=== PATIENT | male | born 1955 | race American Indian/Alaskan Native ===

== ENCOUNTER 2019-12-23 18:40 | Inpatient (IN) | payer MEDICARE ==
[2019-12-23] MEDS ORDERED: SODIUM CHLORIDE 0.9% 1000 ML 1,000 ML ONE (20:14)
[2019-12-23] MEDS ORDERED: SODIUM CHLORIDE 0.9% 1000 ML IV SOLN IV ONE (20:15)
[2019-12-23] MEDS ORDERED: CEFEPIME/NS 2 GM/100 ML 2 GM/100 ML BAG IV ONE (20:16)
--- NOTE | 2019-12-23 20:32 | Emergency Department Report ---
ED Recheck HPI - General Chief Complaint: Recheck/Abnormal Lab/Rx Stated Complaint: ELEVATED LABS Time Seen by Provider: 12/23/19 20:09 Source: patient Mode of arrival: Stretcher Limitations: No Limitations - History of Present Illness Initial Comments: Patient is a 64-year-old male that presents emergency room with abnormal labs. Patient was sent from his [place] [facility] for further evaluation of his abnormal labs. Patient was found to have an elevated creatinine. Patient does not have a history of kidney disease. Patient brought in by EMS. EMS states that the patient is hypotensive. Patient at this time is alert and oriented x1. Patient is oriented to self only. Patient is confused to situation, date, place. We are unsure of the patient's baseline. Patient's diagnosis list reviewed from the [place] [facility] facility. Patient has a past history of GERD, agitation, hyperlipidemia, alcohol related disorder, heart failure, iron deficiency anemia, hypertension, depressive disorder, anxiety disorder, chronic pain. -: Sudden Returns Today for: CBOAL Symptoms Since Prior Visit: no new symptoms Associated Symptoms: none - Related Data Allergies Allergy/AdvReac Type Severity Reaction Status Date / Time Unable to Assess Allergy Verified 12/23/19 22:21 ED Review of Systems ROS: Stated complaint: ELEVATED LABS Other details as noted in HPI Comment: Unobtainable due to pts medical conditions ED Past Medical Hx - Past Medical History Previous Medical History?: Yes Hx Hypertension: Yes Hx Congestive Heart Failure: Yes Hx Liver Disease: No Hx Renal Disease: No Hx Psychiatric Treatment: Yes - Surgical History Past Surgical History?: No - Family History Family history: no significant - Social History Smoking Status: Unknown if ever smoked Substance Use Type: None ED Physical Exam - General Limitations: No Limitations General appearance: alert, in no apparent distress - Head Head exam: Present: atraumatic, normocephalic - Eye Eye exam: Present: normal appearance, PERRL Pupils: Present: normal accommodation - ENT ENT exam: Present: mucous membranes dry - Neck Neck exam: Present: normal inspection. Absent: tenderness, meningismus - Respiratory Respiratory exam: Present: normal lung sounds bilaterally. Absent: respiratory distress, wheezes, rales - Cardiovascular Cardiovascular Exam: Present: regular rate, normal rhythm. Absent: systolic murmur, diastolic murmur, rubs, gallop - GI/Abdominal GI/Abdominal exam: Present: soft, normal bowel sounds. Absent: distended, tenderness - Rectal Rectal exam: Present: deferred - Extremities Exam Extremities exam: Present: normal inspection - Back Exam Back exam: Present: normal inspection - Neurological Exam Neurological exam: Present: alert, altered - Skin Skin exam: Present: warm, dry, intact, normal color. Absent: rash ED Course Vital Signs 12/23/19 12/23/19 12/23/19 18:47 19:08 19:15 Temperature 98.4 F Pulse Rate 95 H 90 91 H Respiratory 18 20 19 Rate Blood Pressure Blood Pressure 74/42 [Right] O2 Sat by Pulse 99 77 L 80 L Oximetry 12/23/19 12/23/19 12/23/19 19:31 19:45 20:01 Temperature Pulse Rate 91 H 91 H 91 H Respiratory 16 21 20 Rate Blood Pressure Blood Pressure [Right] O2 Sat by Pulse 99 100 100 Oximetry 12/23/19 12/23/19 12/23/19 20:15 20:30 20:45 Temperature Pulse Rate 93 H 100 H 101 H Respiratory 16 17 15 Rate Blood Pressure 81/48 71/49 79/47 Blood Pressure [Right] O2 Sat by Pulse 94 95 Oximetry 12/23/19 12/23/19 12/23/19 21:00 21:15 21:30 Temperature Pulse Rate 100 H 105 H 101 H Respiratory 23 26 H 15 Rate Blood Pressure 73/42 70/37 65/33 Blood Pressure [Right] O2 Sat by Pulse 90 Oximetry 12/23/19 12/23/19 12/23/19 21:45 22:00 22:15 Temperature Pulse Rate 104 H 105 H 124 H Respiratory 15 14 22 Rate Blood Pressure 68/38 79/51 100/62 Blood Pressure [Right] O2 Sat by Pulse Oximetry 12/23/19 12/23/19 12/23/19 22:30 22:45 23:00 Temperature Pulse Rate 133 H 116 H 118 H Respiratory 31 H 24 14 Rate Blood Pressure 112/67 102/51 84/48 Blood Pressure [Right] O2 Sat by Pulse 100 Oximetry 12/23/19 12/23/19 12/23/19 23:15 23:43 23:45 Temperature Pulse Rate 117 H 121 H 121 H Respiratory 16 14 17 Rate Blood Pressure 89/54 94/55 99/60 Blood Pressure [Right] O2 Sat by Pulse 100 Oximetry 12/24/19 00:00 Temperature Pulse Rate 124 H Respiratory 12 Rate Blood Pressure 102/67 Blood Pressure [Right] O2 Sat by Pulse 100 Oximetry - Reevaluation(s) Reevaluation #1: Initial evaluation done. Patient found to be hypotensive. Patient's current blood pressure of 85/60. Patient will be given a liter of fluids. Patient will be given antibiotics empirically. Patient will have labs done and a head CT. 12/23/19 20:32 Reevaluation #2: Patient has completed the 2 L of fluid and the patient's blood pressure still low. Patient will be started on Levophed and a central line will be placed. 12/23/19 21:29 Reevaluation #3: Blood pressure is improving on peripheral Levophed. Patient will have a central line placed. 12/23/19 22:10 Reevaluation #4: Central line placed without difficulty. See procedure note. Map is above 65. Patient given Geodon for agitation during procedure. 12/23/19 22:51 - Consultations Consultation #1: Hospitalist consulted for admission. Hospitalist to admit patient. 12/23/19 22:52 - Central Line Placement Left Femoral Consent Obtained: emergent situation Time Out Performed: Yes Patient Placed on Monitor/Pulse Ox: Yes MD Prep: mask, gown, gloves Central Line Prep: Chlorhexidine scrub, sterile drapes applied Local Anesthesia Used: Lidocaine 1% Amount of Anesthesia Used (mls): 5 Ultrasound Used for Placement: Yes Central Line Lumen Inserted: triple Bloods Obtained for Lab: No Central Line Position: good blood return, all ports aspirated, flus, sutured in place with 2-0 Dressing Applied: Tegaderm Patient Tolerated Procedure: well, no complications Complications: none Additional Comments: Central Venous Line Placement: Indication: Hemodynamic monitoring/Intravenous access A time-out was completed verifying correct patient, procedure, site, positioning, and special equipment to include ultrasound. The patient was placed in a dependent position appropriate for central line placement based on the vein to be cannulated. The patients /left groin was prepped and draped in sterile fashion. 1% Lidocaine was used to anesthetize the surrounding skin area. An ultrasound was used in a sterile fashion to identify vasculature. A triple lumen catheter was introduced into the the common femoral vein using the Seldinger technique and under ultrasound guidance. The catheter was threaded smoothly over the guide wire and appropriate blood return was obtained. Each lumen of the catheter was evacuated of air and flushed with sterile saline. The catheter was then sutured in place to the skin and a sterile dressing applied. Perfusion to the extremity distal to the point of catheter insertion was checked and found to be adequate. Estimated Blood Loss: minimal The patient tolerated the procedure well and there were no complications. ED Recheck MDM - Differential Diagnosis Sepsis, renal failure, UTI, hypotension - Medical Decision Making CHEST 1 VIEW INDICATION / CLINICAL INFORMATION: ams. COMPARISON: None available. FINDINGS: SUPPORT DEVICES: None. HEART / MEDIASTINUM: Prior sternotomy and mediastinal clips are noted. LUNGS / PLEURA: No significant pulmonary or pleural abnormality. No pneumothorax. ADDITIONAL FINDINGS: No significant additional findings. IMPRESSION: 1. No acute findings. 2. Prior CABG. CT HEAD WITHOUT CONTRAST INDICATION: Altered Mental Status TECHNIQUE: Axial slices were obtained through the head. Coronal and sagittal reformatted images were obtained. COMPARISON: None available. FINDINGS: There is no intracranial hemorrhage or extra-axial fluid collection. There is atrophy and microangiopathy. Ventricles are normal in size and position. Basal cisterns are maintained. There is no mass lesion or midline shift. No acute territorial infarct is identified. Bone windows demonstrate no acute osseous abnormality. Paranasal sinuses and mastoid air cells appear clear. TECHNIQUE: All CT scans at this facility use dose modulation, iterative reconstruction, automated exposure control, weight based dosing, when appropriate, to reduce radiation dose to as low as reasonably achievable. IMPRESSION: 1. No acute intracranial abnormality. There is atrophy and microangiopathy. Patient is a 64-year-old male that presents emergency room with abnormal labs. Patient was sent from a local [place] [facility] care facility. Patient on initial evaluation found to be hypotensive and altered mental status. The patient's baseline is unknown. Patient does have a history of dementia. Patient had a sepsis protocol initiated immediately after initial evaluation. Patient given the recommended amount of normal saline at 2 L and antibiotics immediately after initial evaluation.. Patient remained hypotensive and was placed on Levophed. Patient responded well to Levophed. Patient then had a central line placed. Patient's labs were done and were remarkable for anemia and acute renal failure and UTI. Patient had a chest x-ray was negative. Patient's head CT negative for acute findings. Patient's clinical findings are consistent with septic shock. Patient admitted to the ICU. Patient admitted to the hospital service for further evaluation and treatment. Critical Care Time: Yes Critical care time in (mins) excluding proc time.: 55 Critical care attestation.: If time is entered above; I have spent that time in minutes in the direct care of this critically ill patient, excluding procedure time. Critical Care Time: 55 minutes ED Disposition Clinical Impression: Abnormal laboratory test result, Elevated troponin I level, Lactic acid acidosis Hypotension Qualifiers: Hypotension type: unspecified hypotension type Qualified Code(s): I95.9 - Hypotension, unspecified Altered mental state Qualifiers: Altered mental status type: unspecified Qualified Code(s): R41.82 - Altered mental status, unspecified Renal failure Qualifiers: Renal failure chronicity: acute Acute renal failure type: unspecified Qualified Code(s): N17.9 - Acute kidney failure, unspecified Anemia Qualifiers: Anemia type: unspecified type Qualified Code(s): D64.9 - Anemia, unspecified UTI (urinary tract infection) Qualifiers: Urinary tract infection type: acute cystitis Hematuria presence: with hematuria Qualified Code(s): N30.01 - Acute cystitis with hematuria Sepsis Qualifiers: Sepsis type: sepsis due to unspecified organism Sepsis acute organ dysfunction status: with acute organ dysfunction Severe sepsis acute organ dysfunction type: acute renal failure Acute renal failure type: unspecified Severe sepsis shock status: with septic shock Qualified Code(s): A41.9 - Sepsis, unspecified organism Disposition: 09 OP ADMIT IP TO THIS HOSP Is pt being admited?: Yes Does the pt Need Aspirin: No Condition: Critical Time of Disposition: 22:52 EKG interpretations - Telemetry EKG Rhythm: Sinus Tachycardia - EKG Sinus rhythms and dysrhythmias: sinus tachycardia Additional Comments: EKG interpreted by me. EKG shows a sinus tachycardia with a wide QRS. No ST segment elevation. Glenn deviation.
[2019-12-23 20:35] LABS: Basophils % (Auto) 0.3 % (0.0-1.8); Hematocrit 22.8 % (35.5-45.6); Hemoglobin 7.7 gm/dl (11.8-15.2); Lymphocytes # (Auto) 0.9 K/mm3 (1.2-5.4); Lymphocytes % (Auto) 8.8 % (13.4-35.0); Mean Corpuscular HGB Conc 34 % (32-34); Mean Corpuscular Volume 91 fl (84-94); Monocytes # (Auto) 1.3 K/mm3 (0.0-0.8); Monocytes % (Auto) 12.2 % (0.0-7.3); Platelet Count 215 K/mm3 (140-440); Red Blood Count 2.52 M/mm3 (3.65-5.03); Red Cell Distribution Width 18.9 % (13.2-15.2)
[2019-12-23 20:50] LABS: Albumin 3.5 g/dL (3.9-5); Calcium 9.2 mg/dL (8.4-10.2)
[2019-12-23 21:35] LABS: Chol/HDL Ratio 3.63 %
[2019-12-23 21:46] LABS: Bacteria,Urine 1+ /HPF (Negative); Bilirubin,Urine NEG (Negative); Blood,Urine MOD (Negative); Color,Urine Yellow (Yellow); Mucus,Urine FEW /HPF; Urobilinogen,Urine < 2.0 mg/dL (<2.0)
--- NOTE | 2019-12-23 21:46 | XRay Report ---
CHEST 1 VIEW INDICATION / CLINICAL INFORMATION: ams. COMPARISON: None available. FINDINGS: SUPPORT DEVICES: None. HEART / MEDIASTINUM: Prior sternotomy and mediastinal clips are noted. LUNGS / PLEURA: No significant pulmonary or pleural abnormality. No pneumothorax. ADDITIONAL FINDINGS: No significant additional findings. IMPRESSION: 1. No acute findings. 2. Prior CABG. Signer Name: Donal Croft MD Signed: 12/23/2019 9:41 PM Workstation Name: [id number]
[2019-12-23] MEDS: NORepinephrine/NS 4 MG-250 ML 4 MG/250 ML BAG IV SCH (21:48)
[2019-12-23] MEDS ORDERED: ZIPRASIDONE MESYLATE 20 MG VIAL IM ONE ×2 (22:07→22:20)
[2019-12-23] MEDS ORDERED: WATER FOR INJ Sterile (PF) 10 ML ONE (22:08)
[2019-12-23] MEDS ORDERED: ONDANSETRON 4 MG/2 ML INJ IV PRN (23:37)
[2019-12-23] MEDS ORDERED: MAGNESIUM HYDROXIDE (MOM) ORAL LIQD UDC PO PRN (23:37)
[2019-12-23] MEDS ORDERED: ACETAMINOPHEN 325 MG TAB PO PRN (23:37)
--- NOTE | 2019-12-23 23:50 | History and Physical Report ---
History of Present Illness Date of examination: 12/23/19 Date of admission: 12/23/19 22:55 Chief complaint: Abnormal labs History of present illness: 64-year-old male resident of [facility] with known history of hypertension and CHF was brought into the emergency room today for evaluation of abnormal labs. He was found to have elevated creatinine without any known history of kidney disease. Upon arrival in the emergency room he was found to be hypotensive and was given some IV fluid. Most of the history was gotten from the emergency room physician as patient is is unable to give any history. Baseline mental status is also unknown. Work-up in the emergency room today reveals hemoglobin of 7.7, lactic acidosis, elevated troponin and elevated creatinine of 2.9. Urinalysis was significant for a urinary tract infection and CT scan of the head was unremarkable. Patient has been admitted for sepsis, anemia UTI. Patient has been started on Levophed, IV fluid and cefepime. Past History Past Medical History: heart failure, hypertension Past Surgical History: denies: No surgical history Social history: other (Resides in a Half-Way) Medications and Allergies Allergies Allergy/AdvReac Type Severity Reaction Status Date / Time No Known Allergies Allergy Verified 12/24/19 03:34 Active Meds: Active Medications Acetaminophen (Tylenol) 650 mg PO Q4H PRN PRN Reason: Pain MILD(1-3)/Fever >100.5/LUNSFORD Norepinephrine (Levophed Drip 4 Mg/Ns 250 Ml) 4 mg in 250 mls @ 7.5 mls/hr IV TITR DARLINE; Protocol Last Titration: 12/23/19 22:03 Dose: 8 mcg/min, 30 mls/hr Documented by: Cefepime HCl (Cefepime/Ns 2 Gm/100 Ml) 2 gm in 100 mls @ 200 mls/hr IV Q12HR DARLINE; Protocol Sodium Chloride (Nacl 0.9% 1000 Ml) 1,000 mls @ 125 mls/hr IV DIRECT DARLINE Magnesium Hydroxide (Milk Of Magnesia) 30 ml PO Q4H PRN PRN Reason: Constipation Ondansetron HCl (Zofran) 4 mg IV Q8H PRN PRN Reason: Nausea And Vomiting Sodium Chloride (Sodium Chloride Flush Syringe 10 Ml) 10 ml IV BID DARLINE Sodium Chloride (Sodium Chloride Flush Syringe 10 Ml) 10 ml IV PRN PRN PRN Reason: LINE FLUSH Review of Systems ROS unobtainable: due to mental status Exam - Constitutional Vitals: Temp Pulse Resp BP Pulse Ox 98.4 F 117 H 16 89/54 100 12/23/19 18:47 12/23/19 23:15 12/23/19 23:15 12/23/19 23:15 12/23/19 23:15 General appearance: Present: no acute distress, cachectic, other (Dry oral mucosa) - EENT Eyes: Present: PERRL, EOM intact ENT: hearing intact, clear oral mucosa, dentition normal - Neck Neck: Present: supple, normal ROM - Respiratory Respiratory effort: normal Respiratory: bilateral: CTA - Cardiovascular Rhythm: regular Heart Sounds: Present: S1 & S2. Absent: gallop, systolic murmur, diastolic murmur, rub - Extremities Extremities: no ischemia, pulses intact, pulses symmetrical, No edema, Full ROM Peripheral Pulses: within normal limits - Abdominal General gastrointestinal: Present: soft, non-tender, non-distended, normal bowel sounds. Absent: mass - Integumentary Integumentary: Present: clear, warm, dry - Musculoskeletal Musculoskeletal: strength equal bilaterally - Psychiatric Psychiatric: cooperative - Neurologic Neurologic: CNII-XII intact, no focal deficits, moves all extremities HEART Score - HEART Score Troponin: Troponin T 0.283 ng/mL (0.00-0.029) H* 12/23/19 20:18 Results - Labs CBC & Chem 7: 12/24/19 04:40 12/24/19 04:40 Labs: Abnormal lab results 12/23/19 12/23/19 12/23/19 Range/Units 20:18 20:18 20:18 RBC 2.52 L (3.65-5.03) M/mm3 Hgb 7.7 L (11.8-15.2) gm/dl Hct 22.8 L (35.5-45.6) % RDW 18.9 H (13.2-15.2) % Lymph % (Auto) 8.8 L (13.4-35.0) % [place] % (Auto) 12.2 H (0.0-7.3) % Lymph # (Auto) 0.9 L (1.2-5.4) K/mm3 [place] # (Auto) 1.3 H (0.0-0.8) K/mm3 Seg Neutrophils % 78.7 H (40.0-70.0) % Seg Neutrophils # 8.1 H (1.8-7.7) K/mm3 Sodium 129 L (137-145) mmol/L Chloride 86.1 L (98-107) mmol/L Carbon Dioxide 18 L (22-30) mmol/L BUN 120 H (9-20) mg/dL Creatinine 2.7 H (0.8-1.3) mg/dL Lactic Acid 2.80 H* (0.7-2.0) mmol/L Total Creatine Kinase 382 H (55-170) units/L Troponin T 0.283 H* (0.00-0.029) ng/mL Total Protein 6.2 L (6.3-8.2) g/dL Albumin 3.5 L (3.9-5) g/dL HDL Cholesterol 38 L (40-59) mg/dL Urine WBC (Auto) (0.0-6.0) /HPF 12/23/19 Range/Units 21:27 RBC (3.65-5.03) M/mm3 Hgb (11.8-15.2) gm/dl Hct (35.5-45.6) % RDW (13.2-15.2) % Lymph % (Auto) (13.4-35.0) % [place] % (Auto) (0.0-7.3) % Lymph # (Auto) (1.2-5.4) K/mm3 [place] # (Auto) (0.0-0.8) K/mm3 Seg Neutrophils % (40.0-70.0) % Seg Neutrophils # (1.8-7.7) K/mm3 Sodium (137-145) mmol/L Chloride (98-107) mmol/L Carbon Dioxide (22-30) mmol/L BUN (9-20) mg/dL Creatinine (0.8-1.3) mg/dL Lactic Acid (0.7-2.0) mmol/L Total Creatine Kinase (55-170) units/L Troponin T (0.00-0.029) ng/mL Total Protein (6.3-8.2) g/dL Albumin (3.9-5) g/dL HDL Cholesterol (40-59) mg/dL Urine WBC (Auto) 74.0 H (0.0-6.0) /HPF Assessment and Plan - Patient Problems (1) Sepsis Current Visit: Yes Status: Acute Qualifiers: Sepsis type: sepsis due to unspecified organism Sepsis acute organ dysfunction status: with acute organ dysfunction Severe sepsis acute organ dysfunction type: acute renal failure Acute renal failure type: unspecified Severe sepsis shock status: with septic shock Qualified Code(s): A41.9 - Sepsis, unspecified organism; R65.21 - Severe sepsis with septic shock; N17.9 - Acute kidney failure, unspecified Plan to address problem: Possibly secondary to UTI. We will continue on IV fluid and empiric IV antibiotics. (2) Altered mental state Current Visit: Yes Status: Acute Qualifiers: Altered mental status type: unspecified Qualified Code(s): R41.82 - Altered mental status, unspecified Plan to address problem: Possibly secondary to underlying sepsis. Will monitor mental status. Baseline mental status is unknown (3) Abnormal laboratory test result Current Visit: Yes Status: Acute Plan to address problem: Patient has been diagnosed renal failure. Will place consult to nephrology for evaluation. Meanwhile patient continued on IV fluid. (4) UTI (urinary tract infection) Current Visit: Yes Status: Acute Qualifiers: Urinary tract infection type: acute cystitis Hematuria presence: with hematuria Qualified Code(s): N30.01 - Acute cystitis with hematuria Plan to address problem: Patient placed on empiric IV antibiotics. We will await urine culture results. (5) Anemia Current Visit: Yes Status: Acute Qualifiers: Anemia type: unspecified type Qualified Code(s): D64.9 - Anemia, unspecified Plan to address problem: Possibly chronic. Will monitor CBC and will transfuse with packed red blood cells if needed. (6) Elevated troponin I level Current Visit: Yes Status: Acute Plan to address problem: Possibly secondary to the kidney disease and sepsis.. (7) Lactic acid acidosis Current Visit: Yes Status: Acute Plan to address problem: Secondary to the underlying sepsis. Will monitor chemistry. (8) Hypotension Current Visit: Yes Status: Acute Qualifiers: Hypotension type: unspecified hypotension type Qualified Code(s): I95.9 - Hypotension, unspecified Plan to address problem: Patient on IV fluid and also on pressor. Will monitor vital signs closely. (9) DVT prophylaxis Current Visit: Yes Status: Acute Plan to address problem: Patient placed on sequential compression device. (10) Full code status Current Visit: Yes Status: Acute
--- NOTE | 2019-12-23 23:56 | Cat Scan Report ---
CT HEAD WITHOUT CONTRAST INDICATION: Altered Mental Status TECHNIQUE: Axial slices were obtained through the head. Coronal and sagittal reformatted images were obtained. COMPARISON: None available. FINDINGS: There is no intracranial hemorrhage or extra-axial fluid collection. There is atrophy and microangiop athy. Ventricles are normal in size and position. Basal cisterns are maintained. There is no mass les ion or midline shift. No acute territorial infarct is identified. Bone windows demonstrate no acute osseous abnormality. Paranasal sinuses and mastoid air cells appear clear. TECHNIQUE: All CT scans at this facility use dose modulation, iterative reconstruction, automated ex posure control, weight based dosing, when appropriate, to reduce radiation dose to as low as reasonab ly achievable. IMPRESSION: 1. No acute intracranial abnormality. There is atrophy and microangiopathy. Signer Name: Yusuf Rob MD Signed: 12/23/2019 11:52 PM Workstation Name: [id number]
[2019-12-24] MEDS: SODIUM CHLORIDE 0.9% 1000 ML 1,000 ML IV SCH ×3 (03:33→19:09)
[2019-12-24] MEDS: NORepinephrine/NS 4 MG-250 ML 4 MG/250 ML BAG IV SCH ×3 (03:33→23:26)
[2019-12-24 05:30] LABS: Hemoglobin 6.7 gm/dl (11.8-15.2); Mean Corpuscular HGB Conc 34 % (32-34); Mean Corpuscular Volume 89 fl (84-94); Platelet Count 180 K/mm3 (140-440); Red Blood Count 2.25 M/mm3 (3.65-5.03); Red Cell Distribution Width 19.1 % (13.2-15.2)
[2019-12-24 05:37] LABS: INR 1.11 (0.87-1.13)
[2019-12-24 05:38] LABS: Calcium 8.6 mg/dL (8.4-10.2)
[2019-12-24 05:40] LABS: Hematocrit 19.9 % (35.5-45.6)
[2019-12-24] MEDS ORDERED: SODIUM CHLORIDE 0.9% 500 ML 500 ML IV ONE (05:43)
[2019-12-24 06:46] LABS: Band Neutrophils # (Manual) 0.1 K/mm3; Basophils % (Manual) 0 % (0.0-1.8); Eosinophils % (Manual) 0 % (0.0-4.3); Monocytes % (Manual) 0 % (0.0-7.3); Total Cells Counted 100
[2019-12-24 06:47] LABS: Anisocytosis 1+; Platelet Estimate Consistent w Auto
--- NOTE | 2019-12-24 08:27 | Progress Note ---
Assessment and Plan The high probability of a clinically significant, sudden or life threatening deterioration of the [] system(s) required my full and direct attention, intervention and personal management. The aggregate critical care time was [] minutes. This time is in addition to time spent performing reported procedures but includes the followin min [x] Data Review and interpretation [x] Patient assessment and monitoring of vital signs [x] Documentation [x] Medication orders and management - Patient Problems (1) Sepsis with encephalopathy and septic shock Current Visit: Yes Status: Acute Plan to address problem: Patient septic with shock requiring pressor support. Levophed at this time. Will treat underlying etiology. Patient much improved with correction of hypotension. IV antibiotics follow blood culture data most likely source at this time is urinary tract infection. Sepsis was present on admission. Cefepime for antibiotic use. Supportive care with IV fluids. Pressor support/follow blood culture data titrate accordingly. We will hold hold all antihypertensive medications as well as change medicines for renal function. (2) Anemia Current Visit: Yes Status: Acute Qualifiers: Anemia type: unspecified type Qualified Code(s): D64.9 - Anemia, unspecified Plan to address problem: At present most likely chronic however patient's A1c is decreased from 7 to below 6. This is associated with hypotension and tachycardia will benefit from correction even though it may be chronic. Transfuse 1 unit packed red blood cells. (3) Full code status Current Visit: Yes Status: Acute Plan to address problem: Could not address this with patient. Did evaluate patient's [place] [facility]. Did see noted from nurse had the charge of power of contract attorney due to [facility]'s office. This is since been outdated. We will phone him to Dr. Jewell for transfusion of blood products. At some point patient would also need to be reevaluated for his CODE STATUS. At this particular time lacks adequate cognition. (4) Hypotension Current Visit: Yes Status: Acute Qualifiers: Hypotension type: unspecified hypotension type Qualified Code(s): I95.9 - Hypotension, unspecified Plan to address problem: Secondary to sepsis IV volume depletion. Requiring pressor support at this time present on admission. (5) UTI (urinary tract infection) Current Visit: Yes Status: Acute Qualifiers: Urinary tract infection type: acute cystitis Hematuria presence: with hematuria Qualified Code(s): N30.01 - Acute cystitis with hematuria Plan to address problem: Continue cefepime follow blood culture data. Aggressive volume replacement. No flank pain decreased fever curve. Subjective Date of service: 12/24/19 Interval history: 64-year-old male resident of local [facility] with known history of hypertension and CHF was brought into the emergency room today for evaluation of abnormal labs. He was found to have elevated creatinine without any known history of kidney disease. Upon arrival in the emergency room he was found to be hypotensive and was given some IV fluid. Work-up in the emergency room today reveals hemoglobin of 7.7, lactic acidosis, elevated troponin and elevated creatinine of 2.9. Urinalysis was significant for a urinary tract infection and CT scan of the head was unremarkable. Patient has been admitted for sepsis, anemia UTI. Patient at present is more alert able to talk. Has behavioral problems. This is old secondary to review of patient's home medications and we have several antipsychotic medications. As well as mood stabilizing agents. Patient is doi ng well today able to speak with you full sentences. Somewhat confused but alert to where he is and to himself. Hospital course at this time complicated by anemia which requires transfusion. Patient also remains on pressors for hypotension. Hospital course also complicated by profound anemia which may be chronic in nature difficult to tell however patient is hypotensive now we will err on the side of caution transfused. Objective - Constitutional Vitals: Vital Signs - 12hr 12/23/19 12/23/19 12/23/19 20:30 20:45 21:00 Temperature Pulse Rate 100 H 101 H 100 H Respiratory 17 15 23 Rate Blood Pressure 71/49 79/47 73/42 Blood Pressure [Right] O2 Sat by Pulse 94 95 Oximetry 12/23/19 12/23/19 12/23/19 21:15 21:30 21:45 Temperature Pulse Rate 105 H 101 H 104 H Respiratory 26 H 15 15 Rate Blood Pressure 70/37 65/33 68/38 Blood Pressure [Right] O2 Sat by Pulse 90 Oximetry 12/23/19 12/23/19 12/23/19 22:00 22:15 22:30 Temperature Pulse Rate 105 H 124 H 133 H Respiratory 14 22 31 H Rate Blood Pressure 79/51 100/62 112/67 Blood Pressure [Right] O2 Sat by Pulse Oximetry 12/23/19 12/23/19 12/23/19 22:45 23:00 23:15 Temperature Pulse Rate 116 H 118 H 117 H Respiratory 24 14 16 Rate Blood Pressure 102/51 84/48 89/54 Blood Pressure [Right] O2 Sat by Pulse 100 100 Oximetry 12/23/19 12/23/19 12/23/19 23:20 23:43 23:45 Temperature Pulse Rate 121 H 121 H Respiratory 14 17 Rate Blood Pressure 94/55 94/55 99/60 Blood Pressure [Right] O2 Sat by Pulse Oximetry 12/23/19 12/24/19 12/24/19 23:46 00:00 00:01 Temperature Pulse Rate 120 H 124 H 124 H Respiratory 21 12 12 Rate Blood Pressure 99/60 102/67 102/67 Blood Pressure [Right] O2 Sat by Pulse 100 99 Oximetry 12/24/19 12/24/19 12/24/19 00:15 00:31 00:45 Temperature Pulse Rate 119 H 124 H 122 H Respiratory 14 19 10 L Rate Blood Pressure 101/45 101/59 109/42 Blood Pressure [Right] O2 Sat by Pulse 100 100 100 Oximetry 12/24/19 12/24/19 12/24/19 01:00 01:15 01:31 Temperature Pulse Rate 120 H Respiratory 27 H 20 32 H Rate Blood Pressure 109/53 96/50 101/66 Blood Pressure [Right] O2 Sat by Pulse 74 L 92 100 Oximetry 12/24/19 12/24/19 12/24/19 01:45 01:50 02:00 Temperature Pulse Rate 119 H 120 H 119 H Respiratory 40 H 24 15 Rate Blood Pressure 100/73 109/51 113/63 Blood Pressure [Right] O2 Sat by Pulse 95 93 81 L Oximetry 12/24/19 12/24/19 12/24/19 02:10 02:21 02:47 Temperature 98.4 F Pulse Rate 119 H 128 H 119 H Respiratory 28 H 34 H 40 H Rate Blood Pressure 114/56 113/63 Blood Pressure 97/70 [Right] O2 Sat by Pulse 100 90 100 Oximetry 12/24/19 12/24/19 12/24/19 02:49 02:54 03:20 Temperature 99.5 F 99.4 F Pulse Rate 133 H Respiratory 24 Rate Blood Pressure Blood Pressure [Right] O2 Sat by Pulse 83 L Oximetry 12/24/19 12/24/19 12/24/19 03:31 03:41 03:49 Temperature Pulse Rate 126 H 122 H Respiratory 19 29 H 24 Rate Blood Pressure Blood Pressure [Right] O2 Sat by Pulse 95 Oximetry 12/24/19 12/24/19 12/24/19 03:51 04:01 04:11 Temperature Pulse Rate 122 H 121 H 119 H Respiratory 21 23 25 H Rate Blood Pressure 81/42 81/42 Blood Pressure [Right] O2 Sat by Pulse Oximetry 12/24/19 12/24/19 12/24/19 04:21 04:31 04:35 Temperature Pulse Rate 118 H 119 H 118 H Respiratory 15 13 Rate Blood Pressure 81/42 81/42 Blood Pressure [Right] O2 Sat by Pulse Oximetry 12/24/19 12/24/19 12/24/19 04:40 04:51 05:00 Temperature Pulse Rate 119 H 115 H 114 H Respiratory 20 17 10 L Rate Blood Pressure 81/50 81/42 66/35 Blood Pressure [Right] O2 Sat by Pulse Oximetry 12/24/19 12/24/19 12/24/19 05:11 05:21 05:31 Temperature Pulse Rate 115 H 114 H 113 H Respiratory 12 15 18 Rate Blood Pressure 75/41 75/41 63/37 Blood Pressure [Right] O2 Sat by Pulse Oximetry 12/24/19 12/24/19 12/24/19 05:40 05:50 06:01 Temperature Pulse Rate 119 H 119 H 119 H Respiratory 22 15 17 Rate Blood Pressure 75/48 74/37 84/46 Blood Pressure [Right] O2 Sat by Pulse Oximetry 12/24/19 12/24/19 12/24/19 06:10 06:20 06:30 Temperature Pulse Rate 118 H 118 H 119 H Respiratory 13 18 22 Rate Blood Pressure 78/43 81/45 78/46 Blood Pressure [Right] O2 Sat by Pulse Oximetry 12/24/19 12/24/19 12/24/19 06:40 06:49 06:50 Temperature 99.1 F Pulse Rate 117 H 118 H Respiratory 20 20 Rate Blood Pressure 79/46 70/40 Blood Pressure [Right] O2 Sat by Pulse Oximetry 12/24/19 12/24/19 12/24/19 07:00 07:10 07:20 Temperature Pulse Rate 118 H 119 H 118 H Respiratory 13 20 19 Rate Blood Pressure 79/47 87/49 80/52 Blood Pressure [Right] O2 Sat by Pulse Oximetry 12/24/19 12/24/19 12/24/19 07:30 07:40 07:50 Temperature Pulse Rate 117 H 117 H 118 H Respiratory 22 12 11 L Rate Blood Pressure 88/52 84/51 80/51 Blood Pressure [Right] O2 Sat by Pulse Oximetry 12/24/19 12/24/19 12/24/19 08:00 08:10 08:20 Temperature Pulse Rate 119 H 119 H 117 H Respiratory 18 20 22 Rate Blood Pressure 89/56 87/52 92/52 Blood Pressure [Right] O2 Sat by Pulse Oximetry General appearance: Present: cachectic, other (Chronically ill-appearing) - EENT Eyes: PERRL, EOM intact ENT: hearing decreased, poor dentition, other (Senile purpura) - Respiratory Respiratory effort: normal Respiratory: bilateral: rhonchi (Basis only) - Cardiovascular Rhythm: regular Heart Sounds: Present: S1 & S2. Absent: gallop, rub Extremity abnormal: other (Deconditioned atrophy generalized weakness.) - Gastrointestinal General gastrointestinal: Present: soft, non-tender, non-distended, normal bowel sounds, other (Scaphoid) - Musculoskeletal Musculoskeletal: generalized weakness - Neurologic Neurologic: focal deficits - Psychiatric Psychiatric: other (Uncooperative poor judgment poor cognition.) - Labs CBC & Chem 7: 12/24/19 04:40 12/24/19 04:40 Labs: Abnormal lab results 12/23/19 12/23/19 12/23/19 Range/Units 20:18 20:18 20:18 WBC (4.5-11.0) K/mm3 RBC 2.52 L (3.65-5.03) M/mm3 Hgb 7.7 L (11.8-15.2) gm/dl Hct 22.8 L (35.5-45.6) % RDW 18.9 H (13.2-15.2) % Lymph % (Auto) 8.8 L (13.4-35.0) % Sunflower % (Auto) 12.2 H (0.0-7.3) % Lymph # (Auto) 0.9 L (1.2-5.4) K/mm3 Sunflower # (Auto) 1.3 H (0.0-0.8) K/mm3 Seg Neutrophils % 78.7 H (40.0-70.0) % Seg Neuts % (Manual) (40.0-70.0) % Lymphocytes % (Manual) (13.4-35.0) % Seg Neutrophils # 8.1 H (1.8-7.7) K/mm3 Seg Neutrophils # Man (1.8-7.7) K/mm3 Lymphocytes # (Manual) (1.2-5.4) K/mm3 Sodium 129 L (137-145) mmol/L Potassium (3.6-5.0) mmol/L Chloride 86.1 L (98-107) mmol/L Carbon Dioxide 18 L (22-30) mmol/L BUN 120 H (9-20) mg/dL Creatinine 2.7 H (0.8-1.3) mg/dL Glucose (75-100) mg/dL POC Glucose (70-105) mg/dL Lactic Acid 2.80 H* (0.7-2.0) mmol/L Total Creatine Kinase 382 H (55-170) units/L Troponin T 0.283 H* (0.00-0.029) ng/mL Total Protein 6.2 L (6.3-8.2) g/dL Albumin 3.5 L (3.9-5) g/dL HDL Cholesterol 38 L (40-59) mg/dL Urine WBC (Auto) (0.0-6.0) /HPF Crossmatch 12/23/19 12/23/19 12/24/19 Range/Units 21:27 23:01 03:08 WBC (4.5-11.0) K/mm3 RBC (3.65-5.03) M/mm3 Hgb (11.8-15.2) gm/dl Hct (35.5-45.6) % RDW (13.2-15.2) % Lymph % (Auto) (13.4-35.0) % Sunflower % (Auto) (0.0-7.3) % Lymph # (Auto) (1.2-5.4) K/mm3 Sunflower # (Auto) (0.0-0.8) K/mm3 Seg Neutrophils % (40.0-70.0) % Seg Neuts % (Manual) (40.0-70.0) % Lymphocytes % (Manual) (13.4-35.0) % Seg Neutrophils # (1.8-7.7) K/mm3 Seg Neutrophils # Man (1.8-7.7) K/mm3 Lymphocytes # (Manual) (1.2-5.4) K/mm3 Sodium (137-145) mmol/L Potassium (3.6-5.0) mmol/L Chloride (98-107) mmol/L Carbon Dioxide (22-30) mmol/L BUN (9-20) mg/dL Creatinine (0.8-1.3) mg/dL Glucose (75-100) mg/dL POC Glucose 174 H (70-105) mg/dL Lactic Acid 3.30 H* (0.7-2.0) mmol/L Total Creatine Kinase (55-170) units/L Troponin T (0.00-0.029) ng/mL Total Protein (6.3-8.2) g/dL Albumin (3.9-5) g/dL HDL Cholesterol (40-59) mg/dL Urine WBC (Auto) 74.0 H (0.0-6.0) /HPF Crossmatch 12/24/19 12/24/19 12/24/19 Range/Units 04:40 04:40 06:05 WBC 13.6 H (4.5-11.0) K/mm3 RBC 2.25 L (3.65-5.03) M/mm3 Hgb 6.7 L (11.8-15.2) gm/dl Hct 19.9 L* (35.5-45.6) % RDW 19.1 H (13.2-15.2) % Lymph % (Auto) (13.4-35.0) % Sunflower % (Auto) (0.0-7.3) % Lymph # (Auto) (1.2-5.4) K/mm3 Sunflower # (Auto) (0.0-0.8) K/mm3 Seg Neutrophils % (40.0-70.0) % Seg Neuts % (Manual) 98.0 H (40.0-70.0) % Lymphocytes % (Manual) 1.0 L (13.4-35.0) % Seg Neutrophils # (1.8-7.7) K/mm3 Seg Neutrophils # Man 13.3 H (1.8-7.7) K/mm3 Lymphocytes # (Manual) 0.1 L (1.2-5.4) K/mm3 Sodium 131 L (137-145) mmol/L Potassium 3.4 L (3.6-5.0) mmol/L Chloride 91.7 L (98-107) mmol/L Carbon Dioxide 16 L (22-30) mmol/L BUN 106 H (9-20) mg/dL Creatinine 2.1 H (0.8-1.3) mg/dL Glucose 115 H (75-100) mg/dL POC Glucose (70-105) mg/dL Lactic Acid (0.7-2.0) mmol/L Total Creatine Kinase (55-170) units/L Troponin T (0.00-0.029) ng/mL Total Protein (6.3-8.2) g/dL Albumin (3.9-5) g/dL HDL Cholesterol (40-59) mg/dL Urine WBC (Auto) (0.0-6.0) /HPF Crossmatch See Detail HEART Score - HEART Score Troponin: Troponin T 0.283 ng/mL (0.00-0.029) H* 12/23/19 20:18
[2019-12-24] MEDS ORDERED: CEFEPIME/NS 2 GM/100 ML 2 GM/100 ML BAG IV SCH ×2 (10:00→21:00)
--- NOTE | 2019-12-24 11:49 | Consultation ---
History of Present Illness - Reason for Consult Consult date: 12/24/19 acute renal failure, hyponatremia - History of Present Illness The patient is a 64 YO male resident of [facility] with known history of Hypertension and CHF who was brought into [facility] ED 12/22 for evaluation of abnormal labs. He was found to have elevated creatinine without any known history of kidney disease. Patient is unable to provide any history at this time. Baseline mental status is also unknown. Upon arrival to the ED his BP was as low as 60/30s and received IV fluids. Labs significant for Hb 7. 7, Lactic acidosis, elevated troponin, Creatinine 2.7, BUN 120, bicarb 18 and Sodium 129. Urinalysis suggestive of UTI. CT of the head was unremarkable and CXR with no acute process. Patient was was started on Levophed and admitted to ICU for treatment of sepsis 2/2 UTI, hypotension and PHIL. nephrology was consulted for further evaluation and treatment of PHIL. Past History Past Medical History: heart failure, hypertension Past Surgical History: denies: No surgical history Social history: other (Resides in a Long-Term) Medications and Allergies Allergies Allergy/AdvReac Type Severity Reaction Status Date / Time No Known Allergies Allergy Verified 12/24/19 03:34 Home Medications Medication Instructions Recorded Confirmed Last Taken Type Acetaminophen [Non-Aspirin Extra 500 mg PO Q8HR PRN 12/24/19 12/24/19 Unknown History Strength] Acetaminophen [Tylenol] 500 mg PO Q8HR PRN 12/24/19 12/24/19 Unknown History Ascorbic Acid [Vitamin C chew] 500 mg PO BID 12/24/19 12/24/19 Unknown History Aspirin [Aspirin BABY CHEW TAB] 81 mg PO QDAY 12/24/19 12/24/19 Unknown History AtorvaSTATin [Lipitor] 40 mg PO QHS 12/24/19 12/24/19 Unknown History Bumetanide [Bumex 1 mg tab] 1 mg PO BID 12/24/19 12/24/19 Unknown History Chlorthalidone [Thalitone] 25 mg PO DAILY 12/24/19 12/24/19 Unknown History Clopidogrel [Plavix] 75 mg PO QDAY 12/24/19 12/24/19 Unknown History Docusate Sodium [Colace] 100 mg PO BID 12/24/19 12/24/19 Unknown History Ferrous Sulfate [Ferrous Sulfate 324 mg PO BID 12/24/19 12/24/19 Unknown History 324 MG] Fluticasone/Vilanterol [Breo 1 each IH DAILY 12/24/19 12/24/19 Unknown History Ellipta 200-25 Mcg INH] HYDROcodone/ACETAMINOPHEN 1 each PO Q12HR 12/24/19 12/24/19 Unknown History [Hydrocodone-Acetamin 5-300 mg] HYDROcodone/ACETAMINOPHEN 1 each PO Q8HR PRN 12/24/19 12/24/19 Unknown History [Hydrocodone-Acetamin 5-300 mg] Insulin Glargine [Lantus VIAL] 10 unit SUB-Q QHS 12/24/19 12/24/19 Unknown History Lactobacillus Acidophilus 1 each PO DAILY 12/24/19 12/24/19 Unknown History [Acidophilus] Lisinopril [Zestril TAB] 2.5 mg PO DAILY 12/24/19 12/24/19 Unknown History Mag Hydrox/Aluminum Hyd/Simeth 30 ml PO Q4H PRN 12/24/19 12/24/19 Unknown History [Maalox Advanced Suspension] Multivit-Min/Iron/Folic Acid/K 1 each PO DAILY 12/24/19 12/24/19 Unknown History [Adults Multivitamin Tablet] Protein Supplement [Promod] 30 ml PO BID 12/24/19 12/24/19 Unknown History QUEtiapine [SEROquel] 25 mg PO BID 12/24/19 12/24/19 Unknown History Sennosides/Docusate Sodium [Senna 1 each PO DAILY 12/24/19 12/24/19 Unknown History Plus 8.6-50 mg Tablet] Tamsulosin [Flomax] 0.4 mg PO QDAY 12/24/19 12/24/19 Unknown History carvediloL [Coreg] 3.125 mg PO BID 12/24/19 12/24/19 Unknown History Active Meds: Active Medications Acetaminophen (Tylenol) 650 mg PO Q4H PRN PRN Reason: Pain MILD(1-3)/Fever >100.5/LUNSFORD Norepinephrine (Levophed Drip 4 Mg/Ns 250 Ml) 4 mg in 250 mls @ 7.5 mls/hr IV TITR DARLINE; Protocol Last Titration: 12/24/19 07:08 Dose: 12 mcg/min, 45 mls/hr Documented by: Sodium Chloride (Nacl 0.9% 1000 Ml) 1,000 mls @ 125 mls/hr IV DIRECT DARLINE Last Admin: 12/24/19 03:33 Dose: 125 mls/hr Documented by: Cefepime HCl (Cefepime/Ns 2 Gm/100 Ml) 2 gm in 100 mls @ 200 mls/hr IV Q24H DARLINE; Protocol Magnesium Hydroxide (Milk Of Magnesia) 30 ml PO Q4H PRN PRN Reason: Constipation Ondansetron HCl (Zofran) 4 mg IV Q8H PRN PRN Reason: Nausea And Vomiting Pneumococcal Polyvalent Vaccine (Pneumovax 23) 0.5 ml IM .ONCE ONE Stop: 12/24/19 12:01 Sodium Chloride (Sodium Chloride Flush Syringe 10 Ml) 10 ml IV BID DARLINE Sodium Chloride (Sodium Chloride Flush Syringe 10 Ml) 10 ml IV PRN PRN PRN Reason: LINE FLUSH Review of Systems ROS unobtainable: due to mental status Exam - Vital Signs Vital signs: Vital Signs Temp Pulse Resp BP Pulse Ox 98.4 F 95 H 18 74/42 99 12/23/19 18:47 12/23/19 18:47 12/23/19 18:47 12/23/19 18:47 12/23/19 18:47 Results - Lab Results 12/24/19 04:40 12/24/19 04:40 Most recent lab results Calcium 8.6 mg/dL (8.4-10.2) 12/24/19 04:40 Assessment and Plan 1. Acute kidney injury: Vasomotor nephropathy in the setting of hypotension / shock. Urine studies and Renal US ordered. Continue IV fluids. Monitor renal function. BUN and Creat improving. Avoid nephrotoxic agents. Meds dosage based on GFR. 2. FEN: Hyponatremia, 2/2 volume depletion, continue 0.9% saline, monitor. Anion-gap metabolic acidosis, monitor. Replete K. Monitor lytes. 3. Sepsis with shock: Likely from UTI. Continue abx. Follow cultures. Was on Levophed. 4. Metabolic encephalopathy, POA. 5. Elevated Troponin. 6. H/o hypertension: Initial hypotension. Monitor blood pressure closely. 7. Normochromic anemia, POA: PRBC ordered. Subjective: Patient was seen and examined at the bedside. - General Appearance General appearance: well-developed, well-nourished, appears stated age, no distress HEENT: ATNC, DARRICK, hearing intact, vision intact Neck: supple Respiratory: ctab Cardiology: regular, S1S2, no murmur Gastrointestinal: normoactive bowel sounds, no tenderness, not distended Integumentary: no obvious rash Neurologic: no asterixis, alert and oriented x3, able to move extremities Ext: no edema noted Psychiatric: cooperative
[2019-12-24] MEDS ORDERED: PNEUMOCOCCAL 23 Valent 0.5 ML VIAL IM ONE (12:00)
[2019-12-24] MEDS ORDERED: FLU VACC QUAD 2020-2021 (6 months +)/PF 60 0.5 ML SYRINGE IM ONE (12:00)
[2019-12-24] MEDS ORDERED: POTASSIUM CHLORIDE 20 MEQ PACKET FEEDTUBE SCH (13:00)
[2019-12-24 13:26] LABS: Creatinine,Urine 32.6 mg/dL (0.1-20.0)
[2019-12-24] MEDS: ASPIRIN 81 MG TAB CHEW PO SCH (17:05)
[2019-12-24] MEDS: HYDROcodone/ACETAMINOPHEN 5-325 MG TAB PO PRN (17:05)
[2019-12-24] MEDS: TAMSULOSIN 0.4 MG CAP PO SCH (17:05)
--- NOTE | 2019-12-24 18:38 | Consultation ---
History of Present Illness - Reason for Consult Consult date: 12/24/19 Hypotension, concern for sepsis Requesting physician: SONALI CHOU - History of Present Illness 64 y/[facility] male [facility] secondary to abnormal labs. Patient found to be in renal failure, hyponatremic, hypochloremic and anemic. Admitted to ICU as he was hypotensive as well and started on vasopressor therapy. Patient may have some dementia as he is not able to provide any history. He apparently is from [place] and has no family. Was admitted to [facility] in October under guardianship from a fish flipper in the [facility] he was from. Past History Past Medical History: heart failure, hypertension Past Surgical History: denies: No surgical history Social history: other (Resides in a Correction) Medications and Allergies Allergies Allergy/AdvReac Type Severity Reaction Status Date / Time No Known Allergies Allergy Verified 12/24/19 03:34 Home Medications Medication Instructions Recorded Confirmed Last Taken Type Acetaminophen [Non-Aspirin Extra 500 mg PO Q8HR PRN 12/24/19 12/24/19 Unknown History Strength] Acetaminophen [Tylenol] 500 mg PO Q8HR PRN 12/24/19 12/24/19 Unknown History Ascorbic Acid [Vitamin C chew] 500 mg PO BID 12/24/19 12/24/19 Unknown History Aspirin [Aspirin BABY CHEW TAB] 81 mg PO QDAY 12/24/19 12/24/19 Unknown History AtorvaSTATin [Lipitor] 40 mg PO QHS 12/24/19 12/24/19 Unknown History Bumetanide [Bumex 1 mg tab] 1 mg PO BID 12/24/19 12/24/19 Unknown History Chlorthalidone [Thalitone] 25 mg PO DAILY 12/24/19 12/24/19 Unknown History Clopidogrel [Plavix] 75 mg PO QDAY 12/24/19 12/24/19 Unknown History Docusate Sodium [Colace] 100 mg PO BID 12/24/19 12/24/19 Unknown History Ferrous Sulfate [Ferrous Sulfate 324 mg PO BID 12/24/19 12/24/19 Unknown History 324 MG] Fluticasone/Vilanterol [Breo 1 each IH DAILY 12/24/19 12/24/19 Unknown History Ellipta 200-25 Mcg INH] HYDROcodone/ACETAMINOPHEN 1 each PO Q12HR 12/24/19 12/24/19 Unknown History [Hydrocodone-Acetamin 5-300 mg] HYDROcodone/ACETAMINOPHEN 1 each PO Q8HR PRN 12/24/19 12/24/19 Unknown History [Hydrocodone-Acetamin 5-300 mg] Insulin Glargine [Lantus VIAL] 10 unit SUB-Q QHS 12/24/19 12/24/19 Unknown History Lactobacillus Acidophilus 1 each PO DAILY 12/24/19 12/24/19 Unknown History [Acidophilus] Lisinopril [Zestril TAB] 2.5 mg PO DAILY 12/24/19 12/24/19 Unknown History Mag Hydrox/Aluminum Hyd/Simeth 30 ml PO Q4H PRN 12/24/19 12/24/19 Unknown History [Maalox Advanced Suspension] Multivit-Min/Iron/Folic Acid/K 1 each PO DAILY 12/24/19 12/24/19 Unknown History [Adults Multivitamin Tablet] Protein Supplement [Promod] 30 ml PO BID 12/24/19 12/24/19 Unknown History QUEtiapine [SEROquel] 25 mg PO BID 12/24/19 12/24/19 Unknown History Sennosides/Docusate Sodium [Senna 1 each PO DAILY 12/24/19 12/24/19 Unknown History Plus 8.6-50 mg Tablet] Tamsulosin [Flomax] 0.4 mg PO QDAY 12/24/19 12/24/19 Unknown History carvediloL [Coreg] 3.125 mg PO BID 12/24/19 12/24/19 Unknown History Active Meds: Active Medications Acetaminophen (Tylenol) 650 mg PO Q4H PRN PRN Reason: Pain MILD(1-3)/Fever >100.5/[place] Hydrocodone Bitart/Acetaminophen ([place] 5/325) 1 each PO Q12HR PRN PRN Reason: Pain, Moderate (4-6) Last Admin: 12/24/19 17:05 Dose: 1 each Documented by: Aspirin (Baby Aspirin) 81 mg PO QDAY [facility] Last Admin: 12/24/19 17:05 Dose: 81 mg Documented by: Atorvastatin Calcium (Lipitor) 40 mg PO QHS [facility] Docusate Sodium (Colace) 100 mg PO BID [facility] Ferrous Gluconate (Fergon) 324 mg PO BID [facility] Norepinephrine (Levophed Drip 4 Mg/Ns 250 Ml) 4 mg in 250 mls @ 7.5 mls/hr IV TITR [facility]; Protocol Last Titration: 12/24/19 17:40 Dose: 4 mcg/min, 15 mls/hr Documented by: Sodium Chloride (Nacl 0.9% 1000 Ml) 1,000 mls @ 125 mls/hr IV DIRECT [facility] Last Admin: 12/24/19 12:11 Dose: 125 mls/hr Documented by: Cefepime HCl (Cefepime/Ns 2 Gm/100 Ml) 2 gm in 100 mls @ 200 mls/hr IV Q24H [facility]; Protocol Insulin Glargine (Lantus) 10 units SUB-Q QHS [facility] Magnesium Hydroxide (Milk Of Magnesia) 30 ml PO Q4H PRN PRN Reason: Constipation Multivitamins (Theragran Tab) 1 each PO DAILY [facility] Ondansetron HCl (Zofran) 4 mg IV Q8H PRN PRN Reason: Nausea And Vomiting Quetiapine Fumarate (Seroquel) 25 mg PO BID [facility] Sodium Chloride (Sodium Chloride Flush Syringe 10 Ml) 10 ml IV BID [facility] Last Admin: 12/24/19 12:12 Dose: 10 ml Documented by: Sodium Chloride (Sodium Chloride Flush Syringe 10 Ml) 10 ml IV PRN PRN PRN Reason: LINE FLUSH Tamsulosin HCl (Flomax) 0.4 mg PO QDAY [facility] Last Admin: 12/24/19 17:05 Dose: 0.4 mg Documented by: Review of Systems ROS unobtainable: due to mental status Exam - Constitutional Vitals: Temp Pulse Resp BP Pulse Ox 98.0 F 101 H 17 97/58 100 12/24/19 18:30 12/24/19 18:30 12/24/19 18:30 12/24/19 18:30 12/24/19 18:30 General appearance: Present: no acute distress, disheveled, other (cachetic) - EENT Eyes: Present: PERRL, EOM intact ENT: hearing intact - Neck Neck: Present: supple, normal ROM - Respiratory Respiratory effort: normal Respiratory: bilateral: CTA - Cardiovascular Rhythm: regular Heart Sounds: Present: S1 & S2 Results - Labs CBC & Chem 7: 12/24/19 04:40 12/24/19 04:40 Labs: Abnormal lab results 12/23/19 12/23/19 12/23/19 Range/Units 20:18 20:18 20:18 WBC (4.5-11.0) K/mm3 RBC 2.52 L (3.65-5.03) M/mm3 Hgb 7.7 L (11.8-15.2) gm/dl Hct 22.8 L (35.5-45.6) % RDW 18.9 H (13.2-15.2) % Lymph % (Auto) 8.8 L (13.4-35.0) % [place] % (Auto) 12.2 H (0.0-7.3) % Lymph # (Auto) 0.9 L (1.2-5.4) K/mm3 [place] # (Auto) 1.3 H (0.0-0.8) K/mm3 Seg Neutrophils % 78.7 H (40.0-70.0) % Seg Neuts % (Manual) (40.0-70.0) % Lymphocytes % (Manual) (13.4-35.0) % Seg Neutrophils # 8.1 H (1.8-7.7) K/mm3 Seg Neutrophils # Man (1.8-7.7) K/mm3 Lymphocytes # (Manual) (1.2-5.4) K/mm3 Sodium 129 L (137-145) mmol/L Potassium (3.6-5.0) mmol/L Chloride 86.1 L (98-107) mmol/L Carbon Dioxide 18 L (22-30) mmol/L BUN 120 H (9-20) mg/dL Creatinine 2.7 H (0.8-1.3) mg/dL Glucose (75-100) mg/dL POC Glucose (70-105) mg/dL Lactic Acid 2.80 H* (0.7-2.0) mmol/L Total Creatine Kinase 382 H (55-170) units/L Troponin T 0.283 H* (0.00-0.029) ng/mL Total Protein 6.2 L (6.3-8.2) g/dL Albumin 3.5 L (3.9-5) g/dL HDL Cholesterol 38 L (40-59) mg/dL Urine WBC (Auto) (0.0-6.0) /HPF Urine Creatinine (0.1-20.0) mg/dL Crossmatch 12/23/19 12/23/19 12/24/19 Range/Units 21:27 23:01 03:08 WBC (4.5-11.0) K/mm3 RBC (3.65-5.03) M/mm3 Hgb (11.8-15.2) gm/dl Hct (35.5-45.6) % RDW (13.2-15.2) % Lymph % (Auto) (13.4-35.0) % [place] % (Auto) (0.0-7.3) % Lymph # (Auto) (1.2-5.4) K/mm3 [place] # (Auto) (0.0-0.8) K/mm3 Seg Neutrophils % (40.0-70.0) % Seg Neuts % (Manual) (40.0-70.0) % Lymphocytes % (Manual) (13.4-35.0) % Seg Neutrophils # (1.8-7.7) K/mm3 Seg Neutrophils # Man (1.8-7.7) K/mm3 Lymphocytes # (Manual) (1.2-5.4) K/mm3 Sodium (137-145) mmol/L Potassium (3.6-5.0) mmol/L Chloride (98-107) mmol/L Carbon Dioxide (22-30) mmol/L BUN (9-20) mg/dL Creatinine (0.8-1.3) mg/dL Glucose (75-100) mg/dL POC Glucose 174 H (70-105) mg/dL Lactic Acid 3.30 H* (0.7-2.0) mmol/L Total Creatine Kinase (55-170) units/L Troponin T (0.00-0.029) ng/mL Total Protein (6.3-8.2) g/dL Albumin (3.9-5) g/dL HDL Cholesterol (40-59) mg/dL Urine WBC (Auto) 74.0 H (0.0-6.0) /HPF Urine Creatinine (0.1-20.0) mg/dL Crossmatch 12/24/19 12/24/19 12/24/19 Range/Units 04:40 04:40 06:05 WBC 13.6 H (4.5-11.0) K/mm3 RBC 2.25 L (3.65-5.03) M/mm3 Hgb 6.7 L (11.8-15.2) gm/dl Hct 19.9 L* (35.5-45.6) % RDW 19.1 H (13.2-15.2) % Lymph % (Auto) (13.4-35.0) % [place] % (Auto) (0.0-7.3) % Lymph # (Auto) (1.2-5.4) K/mm3 [place] # (Auto) (0.0-0.8) K/mm3 Seg Neutrophils % (40.0-70.0) % Seg Neuts % (Manual) 98.0 H (40.0-70.0) % Lymphocytes % (Manual) 1.0 L (13.4-35.0) % Seg Neutrophils # (1.8-7.7) K/mm3 Seg Neutrophils # Man 13.3 H (1.8-7.7) K/mm3 Lymphocytes # (Manual) 0.1 L (1.2-5.4) K/mm3 Sodium 131 L (137-145) mmol/L Potassium 3.4 L (3.6-5.0) mmol/L Chloride 91.7 L (98-107) mmol/L Carbon Dioxide 16 L (22-30) mmol/L BUN 106 H (9-20) mg/dL Creatinine 2.1 H (0.8-1.3) mg/dL Glucose 115 H (75-100) mg/dL POC Glucose (70-105) mg/dL Lactic Acid (0.7-2.0) mmol/L Total Creatine Kinase (55-170) units/L Troponin T (0.00-0.029) ng/mL Total Protein (6.3-8.2) g/dL Albumin (3.9-5) g/dL HDL Cholesterol (40-59) mg/dL Urine WBC (Auto) (0.0-6.0) /HPF Urine Creatinine (0.1-20.0) mg/dL Crossmatch See Detail 12/24/19 Range/Units 13:10 WBC (4.5-11.0) K/mm3 RBC (3.65-5.03) M/mm3 Hgb (11.8-15.2) gm/dl Hct (35.5-45.6) % RDW (13.2-15.2) % Lymph % (Auto) (13.4-35.0) % [place] % (Auto) (0.0-7.3) % Lymph # (Auto) (1.2-5.4) K/mm3 [place] # (Auto) (0.0-0.8) K/mm3 Seg Neutrophils % (40.0-70.0) % Seg Neuts % (Manual) (40.0-70.0) % Lymphocytes % (Manual) (13.4-35.0) % Seg Neutrophils # (1.8-7.7) K/mm3 Seg Neutrophils # Man (1.8-7.7) K/mm3 Lymphocytes # (Manual) (1.2-5.4) K/mm3 Sodium (137-145) mmol/L Potassium (3.6-5.0) mmol/L Chloride (98-107) mmol/L Carbon Dioxide (22-30) mmol/L BUN (9-20) mg/dL Creatinine (0.8-1.3) mg/dL Glucose (75-100) mg/dL POC Glucose (70-105) mg/dL Lactic Acid (0.7-2.0) mmol/L Total Creatine Kinase (55-170) units/L Troponin T (0.00-0.029) ng/mL Total Protein (6.3-8.2) g/dL Albumin (3.9-5) g/dL HDL Cholesterol (40-59) mg/dL Urine WBC (Auto) (0.0-6.0) /HPF Urine Creatinine 32.6 H (0.1-20.0) mg/dL Crossmatch - Imaging and Cardiology Chest x-ray: image reviewed (Mediansternotomy wires, cardiomegaly, clear lung damico) Assessment and Plan 64 y/o male with metabolic derangements, likely secondary to volume depletion with presumed acute renal failure 1. Agree with volume repletion 2. Agree with blood transfusion 3. Wean Vasopressors for MAPs >60, per chart, patient has CHF. He does have mediansternotomy wires, so presumptive CAD as well 4. Agree with perry for accurate output measurements 5. Suggest labs in the AM 6. Will continue to follow, agree with restarting meds from facility, renally dosed. CCT 31 minutes.
[2019-12-24] MEDS: QUEtiapine 25 MG TAB PO SCH (21:24)
[2019-12-24] MEDS: FERROUS GLUCONATE 324 MG TAB PO SCH (21:24)
[2019-12-24] MEDS: INSULIN GLARGINE 100 UNITS/ML SUB-Q SCH (21:34)
[2019-12-24] MEDS ORDERED: HYDROCODONE PO SCH (22:00)
[2019-12-24] MEDS ORDERED: NON-FORMULARY EACH (Ferrous Sulfate [Ferrous Sulfate 324 Mg] 324 MG) PO SCH (22:00)
[2019-12-24] MEDS ORDERED: ACETAMINOPHEN PO SCH (22:00)
[2019-12-24] MEDS: DOCUSATE SODIUM 100 MG CAP PO SCH ×2 (22:00→23:20)
[2019-12-25] MEDS: SODIUM CHLORIDE 0.9% 1000 ML 1,000 ML IV SCH (04:00)
[2019-12-25 05:22] LABS: Basophils % (Auto) 0.2 % (0.0-1.8); Hematocrit 22.5 % (35.5-45.6); Hemoglobin 7.5 gm/dl (11.8-15.2); Lymphocytes # (Auto) 1.3 K/mm3 (1.2-5.4); Lymphocytes % (Auto) 6.5 % (13.4-35.0); Mean Corpuscular HGB Conc 33 % (32-34); Mean Corpuscular Volume 88 fl (84-94); Monocytes # (Auto) 2.3 K/mm3 (0.0-0.8); Monocytes % (Auto) 11.4 % (0.0-7.3); Platelet Count 173 K/mm3 (140-440); Red Blood Count 2.56 M/mm3 (3.65-5.03); Red Cell Distribution Width 18.2 % (13.2-15.2)
[2019-12-25 05:54] LABS: BUN/Creatinine Ratio 57; Blood Urea Nitrogen 68 mg/dL (9-20); Hemolysis Index 1
--- NOTE | 2019-12-25 09:43 | Progress Note ---
Assessment and Plan The high probability of a clinically significant, sudden or life threatening deterioration of the [] system(s) required my full and direct attention, intervention and personal management. The aggregate critical care time was [] minutes. This time is in addition to time spent performing reported procedures but includes the followin min [x] Data Review and interpretation [x] Patient assessment and monitoring of vital signs [x] Documentation [x] Medication orders and management - Patient Problems (1) Sepsis with encephalopathy and septic shock Current Visit: Yes Status: Acute (2) Anemia Current Visit: Yes Status: Acute Qualifiers: Anemia type: unspecified type Qualified Code(s): D64.9 - Anemia, unspecified (3) Full code status Current Visit: Yes Status: Acute (4) Hypotension Current Visit: Yes Status: Acute Qualifiers: Hypotension type: unspecified hypotension type Qualified Code(s): I95.9 - Hypotension, unspecified (5) UTI (urinary tract infection) Current Visit: Yes Status: Acute Qualifiers: Urinary tract infection type: acute cystitis Hematuria presence: with hematuria Qualified Code(s): N30.01 - Acute cystitis with hematuria (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 He was found to have elevated creatinine without any known history of kidney disease. Upon arrival in the emergency room he was found to be hypotensive and was given some IV fluid. Work-up in the emergency room today reveals hemoglobin of 7.7, lactic acidosis, elevated troponin and elevated creatinine of 2.9. Urinalysis was significant for a urinary tract infection and CT scan of the head was unremarkable. Patient has been admitted for sepsis, anemia UTI. Patient at present is more alert able to talk. Has behavioral problems. This is old secondary to review of patient's home medications and we have several antipsychotic medications. As well as mood stabilizing agents. Patient is doing well today able to speak with you full sentences. Somewhat confused but alert to where he is and to himself. Hospital course at this time complicated by anemia which requires transfusion. Patient also remains on pressors for hypotension. 12/24/2019 patient developed herpes lesion around penis painful, hypokalemia and transfuse 1 unit packed red blood cells which he tolerated well. Continue to wean off of pressors will transfer from ICU. Objective - Constitutional Vitals: Vital Signs - 12hr 12/24/19 12/24/19 12/24/19 21:41 21:51 22:00 Temperature Pulse Rate 107 H 107 H 107 H Pulse Rate [ From Monitor] Respiratory 25 H 20 16 Rate Blood Pressure 90/57 91/58 95/55 O2 Sat by Pulse 100 100 100 Oximetry 12/24/19 12/24/19 12/24/19 22:11 22:21 22:30 Temperature Pulse Rate 109 H 107 H 106 H Pulse Rate [ From Monitor] Respiratory 14 21 19 Rate Blood Pressure 95/55 93/55 101/58 O2 Sat by Pulse 100 100 100 Oximetry 12/24/19 12/24/19 12/24/19 22:40 22:51 23:00 Temperature Pulse Rate 106 H 108 H 105 H Pulse Rate [ From Monitor] Respiratory 20 17 21 Rate Blood Pressure 101/58 101/58 97/57 O2 Sat by Pulse 100 100 100 Oximetry 12/24/19 12/24/19 12/24/19 23:11 23:17 23:21 Temperature Pulse Rate 105 H 104 H 104 H Pulse Rate [ From Monitor] Respiratory 21 20 18 Rate Blood Pressure 97/57 85/53 97/57 O2 Sat by Pulse 100 100 100 Oximetry 12/24/19 12/24/19 12/24/19 23:28 23:30 23:41 Temperature 98.8 F Pulse Rate 107 H 108 H Pulse Rate [ From Monitor] Respiratory 18 26 H Rate Blood Pressure 94/52 94/52 O2 Sat by Pulse 100 100 Oximetry 12/24/19 12/25/19 12/25/19 23:51 00:00 00:10 Temperature Pulse Rate 107 H 108 H 107 H Pulse Rate [ 105 H From Monitor] Respiratory 22 16 19 Rate Blood Pressure 80/48 84/53 O2 Sat by Pulse 100 100 100 Oximetry 12/25/19 12/25/19 12/25/19 00:11 00:21 00:30 Temperature Pulse Rate 108 H 111 H 109 H Pulse Rate [ From Monitor] Respiratory 19 15 17 Rate Blood Pressure 91/60 96/50 96/57 O2 Sat by Pulse 100 100 100 Oximetry 12/25/19 12/25/19 12/25/19 00:41 00:51 01:00 Temperature Pulse Rate 109 H 108 H 109 H Pulse Rate [ From Monitor] Respiratory 20 17 22 Rate Blood Pressure 96/57 97/60 95/62 O2 Sat by Pulse 100 100 100 Oximetry 12/25/19 12/25/19 12/25/19 01:11 01:21 01:30 Temperature Pulse Rate 108 H 108 H 109 H Pulse Rate [ From Monitor] Respiratory 14 21 19 Rate Blood Pressure 95/62 102/62 94/57 O2 Sat by Pulse 100 100 99 Oximetry 12/25/19 12/25/19 12/25/19 01:41 01:51 02:00 Temperature Pulse Rate 108 H 108 H 109 H Pulse Rate [ From Monitor] Respiratory 19 20 20 Rate Blood Pressure 94/57 94/57 104/64 O2 Sat by Pulse 100 100 100 Oximetry 12/25/19 12/25/19 12/25/19 02:11 02:21 02:30 Temperature Pulse Rate 107 H 107 H 108 H Pulse Rate [ From Monitor] Respiratory 19 16 20 Rate Blood Pressure 104/64 104/62 103/65 O2 Sat by Pulse 100 99 100 Oximetry 12/25/19 12/25/19 12/25/19 02:41 02:51 03:00 Temperature Pulse Rate 108 H 109 H 108 H Pulse Rate [ From Monitor] Respiratory 21 20 20 Rate Blood Pressure 103/65 103/63 103/66 O2 Sat by Pulse 100 99 100 Oximetry 12/25/19 12/25/19 12/25/19 03:11 03:21 03:26 Temperature 98.4 F Pulse Rate 108 H 108 H Pulse Rate [ From Monitor] Respiratory 15 14 Rate Blood Pressure 103/66 101/60 O2 Sat by Pulse 100 100 Oximetry 12/25/19 12/25/19 12/25/19 03:30 03:41 03:51 Temperature Pulse Rate 108 H 108 H 108 H Pulse Rate [ From Monitor] Respiratory 19 19 16 Rate Blood Pressure 110/61 110/61 106/66 O2 Sat by Pulse 100 99 100 Oximetry 12/25/19 12/25/19 12/25/19 04:00 04:11 04:21 Temperature Pulse Rate 105 H 108 H 109 H Pulse Rate [ From Monitor] Respiratory 24 14 11 L Rate Blood Pressure 99/64 99/64 102/68 O2 Sat by Pulse 100 100 100 Oximetry 1012/25/19 12/25/19 04:30 04:41 04:51 Temperature Pulse Rate 107 H 109 H 109 H Pulse Rate [ 105 H From Monitor] Respiratory 19 13 19 Rate Blood Pressure 112/72 112/72 103/73 O2 Sat by Pulse 100 100 100 Oximetry 12/25/19 12/25/19 12/25/19 05:00 05:11 05:15 Temperature Pulse Rate 108 H 108 H 108 H Pulse Rate [ 105 H From Monitor] Respiratory 19 20 19 Rate Blood Pressure 110/65 110/65 O2 Sat by Pulse 100 100 100 Oximetry 12/25/19 12/25/19 12/25/19 05:21 05:30 05:41 Temperature Pulse Rate 106 H 107 H 107 H Pulse Rate [ From Monitor] Respiratory 20 17 17 Rate Blood Pressure 106/69 109/66 109/66 O2 Sat by Pulse 100 99 99 Oximetry 12/25/19 12/25/19 12/25/19 05:51 06:00 06:11 Temperature Pulse Rate 105 H 104 H 104 H Pulse Rate [ From Monitor] Respiratory 20 20 20 Rate Blood Pressure 98/65 104/65 104/65 O2 Sat by Pulse 98 99 99 Oximetry 12/25/19 12/25/19 12/25/19 06:21 06:22 06:30 Temperature Pulse Rate 104 H 104 H 105 H Pulse Rate [ From Monitor] Respiratory 20 19 Rate Blood Pressure 102/62 103/66 O2 Sat by Pulse 99 99 Oximetry 12/25/19 12/25/19 12/25/19 06:41 06:51 07:00 Temperature Pulse Rate 105 H 108 H 108 H Pulse Rate [ From Monitor] Respiratory 20 20 20 Rate Blood Pressure 103/66 109/66 116/67 O2 Sat by Pulse 99 99 100 Oximetry 12/25/19 12/25/19 12/25/19 07:11 07:21 07:30 Temperature Pulse Rate 108 H 104 H 108 H Pulse Rate [ From Monitor] Respiratory 20 Rate Blood Pressure 116/67 116/67 111/65 O2 Sat by Pulse 100 99 99 Oximetry 12/25/19 12/25/19 12/25/19 07:41 07:51 08:00 Temperature 98.1 F Pulse Rate 107 H 109 H 103 H Pulse Rate [ From Monitor] Respiratory 20 Rate Blood Pressure 111/65 110/67 110/63 O2 Sat by Pulse 99 100 100 Oximetry 12/25/19 12/25/19 12/25/19 08:11 08:21 08:30 Temperature Pulse Rate 105 H 102 H 101 H Pulse Rate [ From Monitor] Respiratory 12 18 13 Rate Blood Pressure 110/63 93/66 113/67 O2 Sat by Pulse 99 99 100 Oximetry 12/25/19 12/25/19 12/25/19 08:41 08:51 09:00 Temperature Pulse Rate 100 H 99 H 100 H Pulse Rate [ 100 H From Monitor] Respiratory 18 17 17 Rate Blood Pressure 113/67 104/65 98/60 O2 Sat by Pulse 100 100 100 Oximetry 12/25/19 09:11 Temperature Pulse Rate 98 H Pulse Rate [ From Monitor] Respiratory 18 Rate Blood Pressure 113/67 O2 Sat by Pulse 100 Oximetry - Labs CBC & Chem 7: 12/25/19 04:00 12/25/19 04:00 Labs: Abnormal lab results 12/24/19 12/24/19 12/24/19 Range/Units 06:05 13:10 21:31 WBC (4.5-11.0) K/mm3 RBC (3.65-5.03) M/mm3 Hgb (11.8-15.2) gm/dl Hct (35.5-45.6) % RDW (13.2-15.2) % Lymph % (Auto) (13.4-35.0) % [place] % (Auto) (0.0-7.3) % [place] # (Auto) (0.0-0.8) K/mm3 Seg Neutrophils % (40.0-70.0) % Seg Neutrophils # (1.8-7.7) K/mm3 Potassium (3.6-5.0) mmol/L Carbon Dioxide (22-30) mmol/L BUN (9-20) mg/dL Glucose (75-100) mg/dL POC Glucose 133 H (70-105) mg/dL Phosphorus (2.5-4.5) mg/dL Urine Creatinine 32.6 H (0.1-20.0) mg/dL Crossmatch See Detail 12/25/19 12/25/19 Range/Units 04:00 04:00 WBC 19.8 H (4.5-11.0) K/mm3 RBC 2.56 L (3.65-5.03) M/mm3 Hgb 7.5 L (11.8-15.2) gm/dl Hct 22.5 L (35.5-45.6) % RDW 18.2 H (13.2-15.2) % Lymph % (Auto) 6.5 L (13.4-35.0) % [place] % (Auto) 11.4 H (0.0-7.3) % [place] # (Auto) 2.3 H (0.0-0.8) K/mm3 Seg Neutrophils % 81.9 H (40.0-70.0) % Seg Neutrophils # 16.2 H (1.8-7.7) K/mm3 Potassium 3.0 L (3.6-5.0) mmol/L Carbon Dioxide 18 L (22-30) mmol/L BUN 68 H (9-20) mg/dL Glucose 159 H (75-100) mg/dL POC Glucose (70-105) mg/dL Phosphorus 2.30 L (2.5-4.5) mg/dL Urine Creatinine (0.1-20.0) mg/dL Crossmatch HEART Score - HEART Score Troponin: Troponin T 0.283 ng/mL (0.00-0.029) H* 12/23/19 20:18
--- NOTE | 2019-12-25 09:57 | Progress Note ---
Assessment and Plan 1. Acute kidney injury: Vasomotor nephropathy in the setting of hypotension / shock. Renal US ordered. Continue IV fluids. Monitor renal function. BUN and Creat improving. Avoid nephrotoxic agents. Meds dosage based on GFR. 2. FEN: Hyponatremia, 2/2 volume depletion, continue 0.9% saline, monitor. Anion-gap metabolic acidosis, monitor. Replete K and Phos. Monitor lytes. 3. Sepsis with shock: Likely from UTI. Continue abx. Follow cultures. Was on Levophed. 4. Metabolic encephalopathy, POA. 5. Elevated Troponin. 6. H/o hypertension: Initial hypotension. Monitor blood pressure closely. 7. Normochromic anemia, POA: S/p PRBC 12/23. Subjective: Patient was seen and examined at the bedside. - General Appearance General appearance: well-developed, well-nourished, appears stated age, no distress HEENT: ATNC, [place], hearing intact, vision intact Neck: Trachea midline Respiratory: ctab Cardiology: regular, S1S2, no murmur Gastrointestinal: normoactive bowel sounds, no tenderness, not distended Integumentary: UE bruises, multiple ulcers over the toes Neurologic: not following any command, able to tell his name. Ext: no edema noted, amputation of R lateral 4 toes Subjective Date of service: 12/25/19 Principal diagnosis: Sepsis septic shock Objective - Vital Signs Vital signs: Vital Signs - 12hr 12/24/19 12/24/19 12/24/19 22:00 22:11 22:21 Temperature Pulse Rate 107 H 109 H 107 H Pulse Rate [ From Monitor] Respiratory 16 14 21 Rate Blood Pressure 95/55 95/55 93/55 O2 Sat by Pulse 100 100 100 Oximetry 12/24/19 12/24/19 12/24/19 22:30 22:40 22:51 Temperature Pulse Rate 106 H 106 H 108 H Pulse Rate [ From Monitor] Respiratory 19 20 17 Rate Blood Pressure 101/58 101/58 101/58 O2 Sat by Pulse 100 100 100 Oximetry 12/24/19 12/24/19 12/24/19 23:00 23:11 23:17 Temperature Pulse Rate 105 H 105 H 104 H Pulse Rate [ From Monitor] Respiratory 21 21 20 Rate Blood Pressure 97/57 97/57 85/53 O2 Sat by Pulse 100 100 100 Oximetry 12/24/19 12/24/19 12/24/19 23:21 23:28 23:30 Temperature 98.8 F Pulse Rate 104 H 107 H Pulse Rate [ From Monitor] Respiratory 18 18 Rate Blood Pressure 97/57 94/52 O2 Sat by Pulse 100 100 Oximetry 12/24/19 12/24/19 12/25/19 23:41 23:51 00:00 Temperature Pulse Rate 108 H 107 H 108 H Pulse Rate [ From Monitor] Respiratory 26 H 22 16 Rate Blood Pressure 94/52 80/48 84/53 O2 Sat by Pulse 100 100 100 Oximetry 12/25/19 12/25/19 12/25/19 00:10 00:11 00:21 Temperature Pulse Rate 107 H 108 H 111 H Pulse Rate [ 105 H From Monitor] Respiratory 19 19 15 Rate Blood Pressure 91/60 96/50 O2 Sat by Pulse 100 100 100 Oximetry 12/25/19 12/25/19 12/25/19 00:30 00:41 00:51 Temperature Pulse Rate 109 H 109 H 108 H Pulse Rate [ From Monitor] Respiratory 17 20 17 Rate Blood Pressure 96/57 96/57 97/60 O2 Sat by Pulse 100 100 100 Oximetry 12/25/19 12/25/19 12/25/19 01:00 01:11 01:21 Temperature Pulse Rate 109 H 108 H 108 H Pulse Rate [ From Monitor] Respiratory 22 14 21 Rate Blood Pressure 95/62 95/62 102/62 O2 Sat by Pulse 100 100 100 Oximetry 12/25/19 12/25/19 12/25/19 01:30 01:41 01:51 Temperature Pulse Rate 109 H 108 H 108 H Pulse Rate [ From Monitor] Respiratory 19 19 20 Rate Blood Pressure 94/57 94/57 94/57 O2 Sat by Pulse 99 100 100 Oximetry 12/25/19 12/25/19 12/25/19 02:00 02:11 02:21 Temperature Pulse Rate 109 H 107 H 107 H Pulse Rate [ From Monitor] Respiratory 20 19 16 Rate Blood Pressure 104/64 104/64 104/62 O2 Sat by Pulse 100 100 99 Oximetry 12/25/19 12/25/19 12/25/19 02:30 02:41 02:51 Temperature Pulse Rate 108 H 108 H 109 H Pulse Rate [ From Monitor] Respiratory 20 21 20 Rate Blood Pressure 103/65 103/65 103/63 O2 Sat by Pulse 100 100 99 Oximetry 12/25/19 12/25/19 12/25/19 03:00 03:11 03:21 Temperature Pulse Rate 108 H 108 H 108 H Pulse Rate [ From Monitor] Respiratory 20 15 14 Rate Blood Pressure 103/66 103/66 101/60 O2 Sat by Pulse 100 100 100 Oximetry 12/25/19 12/25/19 12/25/19 03:26 03:30 03:41 Temperature 98.4 F Pulse Rate 108 H 108 H Pulse Rate [ From Monitor] Respiratory 19 19 Rate Blood Pressure 110/61 110/61 O2 Sat by Pulse 100 99 Oximetry 12/25/19 12/25/19 12/25/19 03:51 04:00 04:11 Temperature Pulse Rate 108 H 105 H 108 H Pulse Rate [ From Monitor] Respiratory 16 24 14 Rate Blood Pressure 106/66 99/64 99/64 O2 Sat by Pulse 100 100 100 Oximetry 12/25/19 12/25/19 12/25/19 04:21 04:30 04:41 Temperature Pulse Rate 109 H 107 H 109 H Pulse Rate [ 105 H From Monitor] Respiratory 11 L 19 13 Rate Blood Pressure 102/68 112/72 112/72 O2 Sat by Pulse 100 100 100 Oximetry 12/25/19 12/25/19 12/25/19 04:51 05:00 05:11 Temperature Pulse Rate 109 H 108 H 108 H Pulse Rate [ From Monitor] Respiratory 19 19 20 Rate Blood Pressure 103/73 110/65 110/65 O2 Sat by Pulse 100 100 100 Oximetry 12/25/19 12/25/19 12/25/19 05:15 05:21 05:30 Temperature Pulse Rate 108 H 106 H 107 H Pulse Rate [ 105 H From Monitor] Respiratory 19 20 17 Rate Blood Pressure 106/69 109/66 O2 Sat by Pulse 100 100 99 Oximetry 12/25/19 12/25/19 12/25/19 05:41 05:51 06:00 Temperature Pulse Rate 107 H 105 H 104 H Pulse Rate [ From Monitor] Respiratory 17 20 20 Rate Blood Pressure 109/66 98/65 104/65 O2 Sat by Pulse 99 98 99 Oximetry 12/25/1920 12/25/19 06:11 06:21 06:22 Temperature Pulse Rate 104 H 104 H 104 H Pulse Rate [ From Monitor] Respiratory 20 20 Rate Blood Pressure 104/65 102/62 O2 Sat by Pulse 99 99 Oximetry 12/25/19 12/25/19 12/25/19 06:30 06:41 06:51 Temperature Pulse Rate 105 H 105 H 108 H Pulse Rate [ From Monitor] Respiratory 19 20 20 Rate Blood Pressure 103/66 103/66 109/66 O2 Sat by Pulse 99 99 99 Oximetry 12/25/19 12/25/19 12/25/19 07:00 07:11 07:21 Temperature Pulse Rate 108 H 108 H 104 H Pulse Rate [ From Monitor] Respiratory 20 20 Rate Blood Pressure 116/67 116/67 116/67 O2 Sat by Pulse 100 100 99 Oximetry 12/25/19 12/25/19 12/25/19 07:30 07:41 07:51 Temperature Pulse Rate 108 H 107 H 109 H Pulse Rate [ From Monitor] Respiratory Rate Blood Pressure 111/65 111/65 110/67 O2 Sat by Pulse 99 99 100 Oximetry 12/25/19 12/25/19 12/25/19 08:00 08:11 08:21 Temperature 98.1 F Pulse Rate 103 H 105 H 102 H Pulse Rate [ From Monitor] Respiratory 20 12 18 Rate Blood Pressure 110/63 110/63 93/66 O2 Sat by Pulse 100 99 99 Oximetry 12/25/19 12/25/19 12/25/19 08:30 08:41 08:51 Temperature Pulse Rate 101 H 100 H 99 H Pulse Rate [ From Monitor] Respiratory 13 18 17 Rate Blood Pressure 113/67 113/67 104/65 O2 Sat by Pulse 100 100 100 Oximetry 12/25/19 12/25/19 12/25/19 09:00 09:11 09:41 Temperature Pulse Rate 100 H 98 H 100 H Pulse Rate [ 100 H From Monitor] Respiratory 17 18 Rate Blood Pressure 98/60 113/67 O2 Sat by Pulse 100 100 Oximetry - Lab 12/25/19 04:00 12/25/19 04:00 Most recent lab results Calcium 9.0 mg/dL (8.4-10.2) 12/25/19 04:00 Phosphorus 2.30 mg/dL (2.5-4.5) L 12/25/19 04:00 Magnesium 1.80 mg/dL (1.7-2.3) 12/25/19 04:00 Urine Creatinine 32.6 mg/dL (0.1-20.0) H 12/24/19 13:10 Urine Sodium 42 mmol/L 12/24/19 13:10 Medications & Allergies - Medications Allergies/Adverse Reactions: Allergies No Known Allergies Allergy (Verified 12/24/19 03:34) Home Medications: Home Medications Medication Instructions Recorded Confirmed Last Taken Type Acetaminophen [Non-Aspirin Extra 500 mg PO Q8HR PRN 12/24/19 12/24/19 Unknown History Strength] Acetaminophen [Tylenol] 500 mg PO Q8HR PRN 12/24/19 12/24/19 Unknown History Ascorbic Acid [Vitamin C chew] 500 mg PO BID 12/24/19 12/24/19 Unknown History Aspirin [Aspirin BABY CHEW TAB] 81 mg PO QDAY 12/24/19 12/24/19 Unknown History AtorvaSTATin [Lipitor] 40 mg PO QHS 12/24/19 12/24/19 Unknown History Bumetanide [Bumex 1 mg tab] 1 mg PO BID 12/24/19 12/24/19 Unknown History Chlorthalidone [Thalitone] 25 mg PO DAILY 12/24/19 12/24/19 Unknown History Clopidogrel [Plavix] 75 mg PO QDAY 12/24/19 12/24/19 Unknown History Docusate Sodium [Colace] 100 mg PO BID 12/24/19 12/24/19 Unknown History Ferrous Sulfate [Ferrous Sulfate 324 mg PO BID 12/24/19 12/24/19 Unknown History 324 MG] Fluticasone/Vilanterol [Breo 1 each IH DAILY 12/24/19 12/24/19 Unknown History Ellipta 200-25 Mcg INH] HYDROcodone/ACETAMINOPHEN 1 each PO Q12HR 12/24/19 12/24/19 Unknown History [Hydrocodone-Acetamin 5-300 mg] HYDROcodone/ACETAMINOPHEN 1 each PO Q8HR PRN 12/24/19 12/24/19 Unknown History [Hydrocodone-Acetamin 5-300 mg] Insulin Glargine [Lantus VIAL] 10 unit SUB-Q QHS 12/24/19 12/24/19 Unknown History Lactobacillus Acidophilus 1 each PO DAILY 12/24/19 12/24/19 Unknown History [Acidophilus] Lisinopril [Zestril TAB] 2.5 mg PO DAILY 12/24/19 12/24/19 Unknown History Mag Hydrox/Aluminum Hyd/Simeth 30 ml PO Q4H PRN 12/24/19 12/24/19 Unknown History [Maalox Advanced Suspension] Multivit-Min/Iron/Folic Acid/K 1 each PO DAILY 12/24/19 12/24/19 Unknown History [Adults Multivitamin Tablet] Protein Supplement [Promod] 30 ml PO BID 12/24/19 12/24/19 Unknown History QUEtiapine [SEROquel] 25 mg PO BID 12/24/19 12/24/19 Unknown History Sennosides/Docusate Sodium [Senna 1 each PO DAILY 12/24/19 12/24/19 Unknown History Plus 8.6-50 mg Tablet] Tamsulosin [Flomax] 0.4 mg PO QDAY 12/24/19 12/24/19 Unknown History carvediloL [Coreg] 3.125 mg PO BID 12/24/19 12/24/19 Unknown History Active Medications: Generic Name Dose Route Start Last Admin Trade Name Freq PRN Reason Stop Dose Admin Acetaminophen 650 mg 12/23/19 23:37 Tylenol PO Q4H PRN Pain MILD(1-3)/Fever >100.5/LUNSFORD Hydrocodone Bitart/Acetaminophen 1 each 12/24/19 16:54 12/24/19 17:05 [place] 5/325 PO 1 each Q12HR PRN Administration Pain, Moderate (4-6) Aspirin 81 mg 12/24/19 18:00 12/24/19 17:05 Baby Aspirin PO 81 mg QDAY DARLINE Administration Atorvastatin Calcium 40 mg 12/24/19 22:00 12/24/19 21:23 Lipitor PO 40 mg QHS DARLINE Administration Docusate Sodium 100 mg 12/24/19 22:00 12/24/19 23:20 Colace PO 100 mg BID DARLINE Administration Ferrous Gluconate 324 mg 12/24/19 22:00 12/24/19 21:24 Fergon PO 324 mg BID DARLINE Administration Norepinephrine 4 mg in 250 mls @ 7.5 mls/hr 12/23/19 22:00 12/25/19 08:38 Levophed Drip 4 Mg/Ns 250 Ml IV 4 mcg/min TITR DARLINE 15 mls/hr Titration Protocol 2 MCG/MIN Sodium Chloride 1,000 mls @ 125 mls/hr 12/23/19 23:45 12/25/19 04:00 Nacl 0.9% 1000 Ml IV 125 mls/hr DIRECT DARLINE Administration Cefepime HCl 2 gm in 100 mls @ 200 mls/hr 12/24/19 21:00 12/24/19 21:20 Cefepime/Ns 2 Gm/100 Ml IV 200 mls/hr Q24H DARLINE Administration Protocol Insulin Glargine 10 units 12/24/19 22:00 12/24/19 21:34 Lantus SUB-Q 10 units QHS DARLINE Administration Lidocaine HCl 2.5 ml 12/25/19 11:00 Xylocaine Topical 4% TP 12/25/19 11:01 ONCE ONE Magnesium Hydroxide 30 ml 12/23/19 23:37 Milk Of Magnesia PO Q4H PRN Constipation Multivitamins 1 each 12/25/19 10:00 Theragran Tab PO DAILY DARLINE Ondansetron HCl 4 mg 12/23/19 23:37 Zofran IV Q8H PRN Nausea And Vomiting Potassium Chloride 40 meq 12/25/19 10:00 K-Dur PO 12/25/19 10:01 ONCE ONE Quetiapine Fumarate 25 mg 12/24/19 22:00 12/24/19 21:24 Seroquel PO 25 mg BID DARLINE Administration Sodium Chloride 10 ml 12/24/19 10:00 12/24/19 21:26 Sodium Chloride Flush Syringe 10 Ml IV 10 ml BID DARLINE Administration Sodium Chloride 10 ml 12/23/19 23:37 Sodium Chloride Flush Syringe 10 Ml IV PRN PRN LINE FLUSH Tamsulosin HCl 0.4 mg 12/24/19 18:00 12/24/19 17:05 Flomax PO 0.4 mg QDAY DARLINE Administration Valacyclovir HCl 1,000 mg 12/25/19 14:00 Valtrex PO TID DARLINE
[2019-12-25] MEDS: DOCUSATE SODIUM 100 MG CAP PO SCH ×2 (09:59→21:22)
[2019-12-25] MEDS ORDERED: [UNRECOGNIZED DRUG - OTHER] PO SCH (10:00)
[2019-12-25] MEDS ORDERED: IRON PO SCH (10:00)
[2019-12-25] MEDS ORDERED: FOLIC ACID PO SCH (10:00)
[2019-12-25] MEDS: TAMSULOSIN 0.4 MG CAP PO SCH (10:00)
[2019-12-25] MEDS: MULTIVITAMINS ,THERAPEUTIC TAB PO SCH (10:00)
[2019-12-25] MEDS: FERROUS GLUCONATE 324 MG TAB PO SCH ×2 (10:00→21:22)
[2019-12-25] MEDS ORDERED: POTASSIUM CHLORIDE ER 20 MEQ TAB PO ONE (10:00)
[2019-12-25] MEDS ORDERED: MULTIVIT MIN PO SCH (10:00)
[2019-12-25] MEDS: ASPIRIN 81 MG TAB CHEW PO SCH (10:00)
[2019-12-25] MEDS: QUEtiapine 25 MG TAB PO SCH ×2 (10:00→21:22)
[2019-12-25] MEDS ORDERED: LIDOCAINE (4%) 40 MG/ML TOPICAL SOLN 50 ML BOTTLE TP ONE (11:00)
[2019-12-25] MEDS ORDERED: POTASSIUM PHOSPHATE 30 MMOL in SODIUM CHLORIDE 0.9% 500 ML 500 ML IV ONE (11:00)
[2019-12-25] MEDS: NORepinephrine/NS 4 MG-250 ML 4 MG/250 ML BAG IV SCH (11:12)
[2019-12-25] MEDS: CEFEPIME/NS 2 GM/100 ML 2 GM/100 ML BAG IV SCH ×2 (11:13→22:00)
--- NOTE | 2019-12-25 12:12 | Progress Note ---
Assessment and Plan 64 y/o male with metabolic derangements, likely secondary to volume depletion with presumed acute renal failure 1. Agree with volume repletion, will ask renal if oK with a few boluses. 2. Agree with blood transfusion, however patient did not respond appropriately. may need to send haptoglobin and LDH. Given CHF and pressor requirement, would consider more transfusion. Blood bank will give, because of his other comorbids. 3. Wean Vasopressors for MAPs >60, per chart, patient has CHF. He does have mediansternotomy wires, so presumptive CAD as well 4. Agree with vicky for accurate output measurements, Renal function improving 5. Suggest labs in the AM CCT 31 minutes. Subjective Date of service: 12/25/19 Principal diagnosis: Sepsis septic shock Interval history: REmains on pressors. Overnight, actually increased to 6, but now back down to 4. IMS ordered K. I have orded Mag repletion. Renal continues to follow. Much more calm this am. Objective - Constitutional Vitals: Vital Signs - 12hr 12/25/19 12/25/19 12/25/19 00:10 00:11 00:21 Temperature Pulse Rate 107 H 108 H 111 H Pulse Rate [ 105 H From Monitor] Respiratory 19 19 15 Rate Blood Pressure 91/60 96/50 O2 Sat by Pulse 100 100 100 Oximetry 12/25/19 12/25/19 12/25/19 00:30 00:41 00:51 Temperature Pulse Rate 109 H 109 H 108 H Pulse Rate [ From Monitor] Respiratory 17 20 17 Rate Blood Pressure 96/57 96/57 97/60 O2 Sat by Pulse 100 100 100 Oximetry 12/25/19 12/25/19 12/25/19 01:00 01:11 01:21 Temperature Pulse Rate 109 H 108 H 108 H Pulse Rate [ From Monitor] Respiratory 22 14 21 Rate Blood Pressure 95/62 95/62 102/62 O2 Sat by Pulse 100 100 100 Oximetry 12/25/19 12/25/19 12/25/19 01:30 01:41 01:51 Temperature Pulse Rate 109 H 108 H 108 H Pulse Rate [ From Monitor] Respiratory 19 19 20 Rate Blood Pressure 94/57 94/57 94/57 O2 Sat by Pulse 99 100 100 Oximetry 12/25/19 12/25/19 12/25/19 02:00 02:11 02:21 Temperature Pulse Rate 109 H 107 H 107 H Pulse Rate [ From Monitor] Respiratory 20 19 16 Rate Blood Pressure 104/64 104/64 104/62 O2 Sat by Pulse 100 100 99 Oximetry 12/25/19 12/25/19 12/25/19 02:30 02:41 02:51 Temperature Pulse Rate 108 H 108 H 109 H Pulse Rate [ From Monitor] Respiratory 20 21 20 Rate Blood Pressure 103/65 103/65 103/63 O2 Sat by Pulse 100 100 99 Oximetry 12/25/19 12/25/19 12/25/19 03:00 03:11 03:21 Temperature Pulse Rate 108 H 108 H 108 H Pulse Rate [ From Monitor] Respiratory 20 15 14 Rate Blood Pressure 103/66 103/66 101/60 O2 Sat by Pulse 100 100 100 Oximetry 12/25/19 12/25/19 12/25/19 03:26 03:30 03:41 Temperature 98.4 F Pulse Rate 108 H 108 H Pulse Rate [ From Monitor] Respiratory 19 19 Rate Blood Pressure 110/61 110/61 O2 Sat by Pulse 100 99 Oximetry 12/25/19 12/25/19 12/25/19 03:51 04:00 04:11 Temperature Pulse Rate 108 H 105 H 108 H Pulse Rate [ From Monitor] Respiratory 16 24 14 Rate Blood Pressure 106/66 99/64 99/64 O2 Sat by Pulse 100 100 100 Oximetry 12/25/19 12/25/19 12/25/19 04:21 04:30 04:41 Temperature Pulse Rate 109 H 107 H 109 H Pulse Rate [ 105 H From Monitor] Respiratory 11 L 19 13 Rate Blood Pressure 102/68 112/72 112/72 O2 Sat by Pulse 100 100 100 Oximetry 12/25/19 12/25/19 12/25/19 04:51 05:00 05:11 Temperature Pulse Rate 109 H 108 H 108 H Pulse Rate [ From Monitor] Respiratory 19 19 20 Rate Blood Pressure 103/73 110/65 110/65 O2 Sat by Pulse 100 100 100 Oximetry 12/25/19 12/25/19 12/25/19 05:15 05:21 05:30 Temperature Pulse Rate 108 H 106 H 107 H Pulse Rate [ 105 H From Monitor] Respiratory 19 20 17 Rate Blood Pressure 106/69 109/66 O2 Sat by Pulse 100 100 99 Oximetry 12/25/19 12/25/19 12/25/19 05:41 05:51 06:00 Temperature Pulse Rate 107 H 105 H 104 H Pulse Rate [ From Monitor] Respiratory 17 20 20 Rate Blood Pressure 109/66 98/65 104/65 O2 Sat by Pulse 99 98 99 Oximetry 12/25/19 12/25/19 12/25/19 06:11 06:21 06:22 Temperature Pulse Rate 104 H 104 H 104 H Pulse Rate [ From Monitor] Respiratory 20 20 Rate Blood Pressure 104/65 102/62 O2 Sat by Pulse 99 99 Oximetry 12/25/19 12/25/19 12/25/19 06:30 06:41 06:51 Temperature Pulse Rate 105 H 105 H 108 H Pulse Rate [ From Monitor] Respiratory 19 20 20 Rate Blood Pressure 103/66 103/66 109/66 O2 Sat by Pulse 99 99 99 Oximetry 12/25/19 12/25/19 12/25/19 07:00 07:11 07:21 Temperature Pulse Rate 108 H 108 H 104 H Pulse Rate [ From Monitor] Respiratory 20 20 Rate Blood Pressure 116/67 116/67 116/67 O2 Sat by Pulse 100 100 99 Oximetry 12/25/19 12/25/19 12/25/19 07:30 07:41 07:51 Temperature Pulse Rate 108 H 107 H 109 H Pulse Rate [ From Monitor] Respiratory Rate Blood Pressure 111/65 111/65 110/67 O2 Sat by Pulse 99 99 100 Oximetry 12/25/19 12/25/19 12/25/19 08:00 08:11 08:21 Temperature 98.1 F Pulse Rate 103 H 105 H 102 H Pulse Rate [ From Monitor] Respiratory 20 12 18 Rate Blood Pressure 110/63 110/63 93/66 O2 Sat by Pulse 100 99 99 Oximetry 12/25/19 12/25/19 12/25/19 08:30 08:41 08:51 Temperature Pulse Rate 101 H 100 H 99 H Pulse Rate [ From Monitor] Respiratory 13 18 17 Rate Blood Pressure 113/67 113/67 104/65 O2 Sat by Pulse 100 100 100 Oximetry 12/25/19 12/25/19 12/25/19 09:00 09:11 09:21 Temperature Pulse Rate 100 H 98 H 99 H Pulse Rate [ 100 H From Monitor] Respiratory 17 18 19 Rate Blood Pressure 98/60 113/67 105/65 O2 Sat by Pulse 100 100 100 Oximetry 12/25/19 12/25/19 12/25/19 09:30 09:41 09:51 Temperature Pulse Rate 98 H 101 H 99 H Pulse Rate [ From Monitor] Respiratory 17 14 18 Rate Blood Pressure 99/61 99/61 103/55 O2 Sat by Pulse 100 100 100 Oximetry 12/25/19 12/25/19 12/25/19 10:00 10:11 10:21 Temperature Pulse Rate 103 H 102 H 100 H Pulse Rate [ From Monitor] Respiratory 20 27 H 18 Rate Blood Pressure 98/58 98/58 100/55 O2 Sat by Pulse 100 100 100 Oximetry 12/25/19 12/25/19 12/25/19 10:30 10:41 10:51 Temperature Pulse Rate 97 H 100 H 97 H Pulse Rate [ From Monitor] Respiratory 18 13 17 Rate Blood Pressure 103/51 103/51 106/55 O2 Sat by Pulse 100 100 100 Oximetry 12/25/19 12/25/19 11:00 12:00 Temperature Pulse Rate 97 H Pulse Rate [ 99 H From Monitor] Respiratory 16 17 Rate Blood Pressure 110/65 O2 Sat by Pulse 100 100 Oximetry General appearance: Present: no acute distress, cachectic - EENT Eyes: PERRL ENT: hearing intact - Neck Neck: supple - Respiratory Respiratory: bilateral: CTA - Labs CBC & Chem 7: 12/25/19 04:00 12/25/19 04:00 Labs: Abnormal lab results 12/24/19 12/24/19 12/24/19 Range/Units 06:05 13:10 21:31 WBC (4.5-11.0) K/mm3 RBC (3.65-5.03) M/mm3 Hgb (11.8-15.2) gm/dl Hct (35.5-45.6) % RDW (13.2-15.2) % Lymph % (Auto) (13.4-35.0) % [place] % (Auto) (0.0-7.3) % [place] # (Auto) (0.0-0.8) K/mm3 Seg Neutrophils % (40.0-70.0) % Seg Neutrophils # (1.8-7.7) K/mm3 Potassium (3.6-5.0) mmol/L Carbon Dioxide (22-30) mmol/L BUN (9-20) mg/dL Glucose (75-100) mg/dL POC Glucose 133 H (70-105) mg/dL Phosphorus (2.5-4.5) mg/dL Urine Creatinine 32.6 H (0.1-20.0) mg/dL Crossmatch See Detail 12/25/19 12/25/19 Range/Units 04:00 04:00 WBC 19.8 H (4.5-11.0) K/mm3 RBC 2.56 L (3.65-5.03) M/mm3 Hgb 7.5 L (11.8-15.2) gm/dl Hct 22.5 L (35.5-45.6) % RDW 18.2 H (13.2-15.2) % Lymph % (Auto) 6.5 L (13.4-35.0) % [place] % (Auto) 11.4 H (0.0-7.3) % [place] # (Auto) 2.3 H (0.0-0.8) K/mm3 Seg Neutrophils % 81.9 H (40.0-70.0) % Seg Neutrophils # 16.2 H (1.8-7.7) K/mm3 Potassium 3.0 L (3.6-5.0) mmol/L Carbon Dioxide 18 L (22-30) mmol/L BUN 68 H (9-20) mg/dL Glucose 159 H (75-100) mg/dL POC Glucose (70-105) mg/dL Phosphorus 2.30 L (2.5-4.5) mg/dL Urine Creatinine (0.1-20.0) mg/dL Crossmatch Medications & Allergies - Medications Allergies/Adverse Reactions: Allergies No Known Allergies Allergy (Verified 12/24/19 03:34) Home Medications: Home Medications Medication Instructions Recorded Confirmed Last Taken Type Acetaminophen [Non-Aspirin Extra 500 mg PO Q8HR PRN 12/24/19 12/24/19 Unknown History Strength] Acetaminophen [Tylenol] 500 mg PO Q8HR PRN 12/24/19 12/24/19 Unknown History Ascorbic Acid [Vitamin C chew] 500 mg PO BID 12/24/19 12/24/19 Unknown History Aspirin [Aspirin BABY CHEW TAB] 81 mg PO QDAY 12/24/19 12/24/19 Unknown History AtorvaSTATin [Lipitor] 40 mg PO QHS 12/24/19 12/24/19 Unknown History Bumetanide [Bumex 1 mg tab] 1 mg PO BID 12/24/19 12/24/19 Unknown History Chlorthalidone [Thalitone] 25 mg PO DAILY 12/24/19 12/24/19 Unknown History Clopidogrel [Plavix] 75 mg PO QDAY 12/24/19 12/24/19 Unknown History Docusate Sodium [Colace] 100 mg PO BID 12/24/19 12/24/19 Unknown History Ferrous Sulfate [Ferrous Sulfate 324 mg PO BID 12/24/19 12/24/19 Unknown History 324 MG] Fluticasone/Vilanterol [Breo 1 each IH DAILY 12/24/19 12/24/19 Unknown History Ellipta 200-25 Mcg INH] HYDROcodone/ACETAMINOPHEN 1 each PO Q12HR 12/24/19 12/24/19 Unknown History [Hydrocodone-Acetamin 5-300 mg] HYDROcodone/ACETAMINOPHEN 1 each PO Q8HR PRN 12/24/19 12/24/19 Unknown History [Hydrocodone-Acetamin 5-300 mg] Insulin Glargine [Lantus VIAL] 10 unit SUB-Q QHS 12/24/19 12/24/19 Unknown History Lactobacillus Acidophilus 1 each PO DAILY 12/24/19 12/24/19 Unknown History [Acidophilus] Lisinopril [Zestril TAB] 2.5 mg PO DAILY 12/24/19 12/24/19 Unknown History Mag Hydrox/Aluminum Hyd/Simeth 30 ml PO Q4H PRN 12/24/19 12/24/19 Unknown History [Maalox Advanced Suspension] Multivit-Min/Iron/Folic Acid/K 1 each PO DAILY 12/24/19 12/24/19 Unknown History [Adults Multivitamin Tablet] Protein Supplement [Promod] 30 ml PO BID 12/24/19 12/24/19 Unknown History QUEtiapine [SEROquel] 25 mg PO BID 12/24/19 12/24/19 Unknown History Sennosides/Docusate Sodium [Senna 1 each PO DAILY 12/24/19 12/24/19 Unknown History Plus 8.6-50 mg Tablet] Tamsulosin [Flomax] 0.4 mg PO QDAY 12/24/19 12/24/19 Unknown History carvediloL [Coreg] 3.125 mg PO BID 12/24/19 12/24/19 Unknown History Active Medications: Generic Name Dose Route Start Last Admin Trade Name Freq PRN Reason Stop Dose Admin Acetaminophen 650 mg 12/23/19 23:37 Tylenol PO Q4H PRN Pain MILD(1-3)/Fever >100.5/[place] Hydrocodone Bitart/Acetaminophen 1 each 12/24/19 16:54 12/24/19 17:05 [place] 5/325 PO 1 each Q12HR PRN Administration Pain, Moderate (4-6) Aspirin 81 mg 12/24/19 18:00 12/25/19 10:00 Baby Aspirin PO 81 mg QDAY DARLINE Administration Atorvastatin Calcium 40 mg 12/24/19 22:00 12/24/19 21:23 Lipitor PO 40 mg QHS DARLINE Administration Docusate Sodium 100 mg 12/24/19 22:00 12/25/19 09:59 Colace PO 100 mg BID DARLINE Administration Ferrous Gluconate 324 mg 12/24/19 22:00 12/25/19 10:00 Fergon PO 324 mg BID DARLINE Administration Norepinephrine 4 mg in 250 mls @ 7.5 mls/hr 12/23/19 22:00 12/25/19 11:12 Levophed Drip 4 Mg/Ns 250 Ml IV 4 mcg/min TITR DARLINE 15 mls/hr Administration Protocol 2 MCG/MIN Sodium Chloride 1,000 mls @ 125 mls/hr 12/23/19 23:45 12/25/19 04:00 Nacl 0.9% 1000 Ml IV 125 mls/hr DIRECT DARLINE Administration Potassium Phosphate 30 mmol/ 510 mls @ 83 mls/hr 12/25/19 11:00 12/25/19 10:37 Sodium Chloride IV 12/25/19 17:08 83 mls/hr ONCE ONE Administration Cefepime HCl 2 gm in 100 mls @ 200 mls/hr 12/25/19 11:00 12/25/19 11:13 Cefepime/Ns 2 Gm/100 Ml IV 200 mls/hr BID DARLINE Administration Protocol Magnesium Sulfate 2 gm in 50 mls @ 25 mls/hr 12/25/19 13:00 Magnesium Sulfate 2gm/50ml IV 12/25/19 14:59 ONCE ONE Potassium Chloride 20 meq in 100 mls @ 100 mls/hr 12/25/19 13:00 Kcl 20meq/100ml IV 12/25/19 15:59 Q1H [facility] Insulin Glargine 10 units 12/24/19 22:00 12/24/19 21:34 Lantus SUB-Q 10 units QHS DARLINE Administration Magnesium Hydroxide 30 ml 12/23/19 23:37 Milk Of Magnesia PO Q4H PRN Constipation Multivitamins 1 each 12/25/19 10:00 12/25/19 10:00 Theragran Tab PO 1 each DAILY [facility] Administration Ondansetron HCl 4 mg 12/23/19 23:37 Zofran IV Q8H PRN Nausea And Vomiting Quetiapine Fumarate 25 mg 12/24/19 22:00 12/25/19 10:00 Seroquel PO 25 mg BID DARLINE Administration Sodium Chloride 10 ml 12/24/19 10:00 12/25/19 11:21 Sodium Chloride Flush Syringe 10 Ml IV 10 ml BID DARLINE Administration Sodium Chloride 10 ml 12/23/19 23:37 Sodium Chloride Flush Syringe 10 Ml IV PRN PRN LINE FLUSH Tamsulosin HCl 0.4 mg 12/24/19 18:00 12/25/19 10:00 Flomax PO 0.4 mg QDAY [facility] Administration Valacyclovir HCl 1,000 mg 12/25/19 14:00 Valtrex PO TID [facility] HEART Score - HEART Score Troponin: Troponin T 0.283 ng/mL (0.00-0.029) H* 12/23/19 20:18
[2019-12-25] MEDS ORDERED: POTASSIUM CHLORIDE 20 MEQ 20 MEQ/100 ML BAG IV SCH (13:00)
[2019-12-25] MEDS ORDERED: MAGNESIUM SULFATE 2 GM/50 ML BAG IV ONE (13:00)
[2019-12-25] MEDS: valACYclovir 500 MG TAB PO SCH ×2 (13:49→21:22)
[2019-12-25] MEDS ORDERED: SODIUM CHLORIDE 0.9% 1000 ML 1,000 ML IV ONE (14:00)
--- NOTE | 2019-12-25 18:56 | Ultrasound Report ---
US renal BILAT INDICATION / CLINICAL INFORMATION: Acute renal failure.. COMPARISON: None available. FINDINGS: RIGHT KIDNEY: Size = 12.1 cm. - Echogenicity: Increased echogenicity and decreased visualization of the renal pyramids. - Cortical thickness: Normal. - Hydronephrosis: None. - Cyst or mass: None. - Stones: None seen.. LEFT KIDNEY: Size = 11.5 cm. - Echogenicity: Increased echogenicity and decreased visualization of the renal pyramids. - Cortical thickness: Normal. - Hydronephrosis: None. - Cyst or mass: None. - Stones: None seen.. URINARY BLADDER: Decompressed via Matthews catheter FREE FLUID: None. ADDITIONAL FINDINGS: None. IMPRESSION 1. Findings of medical renal disease without other significant sonographic abnormality. Signer Name: Humberto Leyva MD Signed: 12/25/2019 6:52 PM Workstation Name: [id number]
[2019-12-25] MEDS: INSULIN GLARGINE 100 UNITS/ML SUB-Q SCH (21:24)
[2019-12-26] MEDS: NORepinephrine/NS 4 MG-250 ML 4 MG/250 ML BAG IV SCH (05:05)
[2019-12-26 06:37] LABS: Hematocrit 24.1 % (35.5-45.6); Mean Corpuscular HGB Conc 33 % (32-34); Mean Corpuscular Volume 90 fl (84-94); Platelet Count 163 K/mm3 (140-440); Red Blood Count 2.67 M/mm3 (3.65-5.03)
[2019-12-26 06:50] LABS: BUN/Creatinine Ratio 42; Blood Urea Nitrogen 42 mg/dL (9-20); Calcium 8.6 mg/dL (8.4-10.2); Hemolysis Index 3
[2019-12-26] MEDS: ASPIRIN 81 MG TAB CHEW PO SCH (10:11)
[2019-12-26] MEDS: TAMSULOSIN 0.4 MG CAP PO SCH (10:11)
[2019-12-26] MEDS: HYDROcodone/ACETAMINOPHEN 5-325 MG TAB PO PRN (10:11)
[2019-12-26] MEDS: DOCUSATE SODIUM 100 MG CAP PO SCH ×2 (10:11→22:03)
[2019-12-26] MEDS: CEFEPIME/NS 2 GM/100 ML 2 GM/100 ML BAG IV SCH ×2 (10:12→22:03)
[2019-12-26] MEDS: valACYclovir 500 MG TAB PO SCH ×3 (10:12→22:03)
[2019-12-26] MEDS: FERROUS GLUCONATE 324 MG TAB PO SCH ×2 (10:12→22:05)
[2019-12-26] MEDS: QUEtiapine 25 MG TAB PO SCH ×2 (10:12→22:03)
[2019-12-26] MEDS: MULTIVITAMINS ,THERAPEUTIC TAB PO SCH (10:12)
--- NOTE | 2019-12-26 10:40 | Progress Note ---
Assessment and Plan 64 y/o male with metabolic derangements, likely secondary to volume depletion with presumed acute renal failure 1. Can stop IVF's now that eating and drinking appropriately. 2. Monitor H/H 3. Vasopressors now off. 4. Agree with perry for accurate output measurements, Renal function improving 5. Suggest labs in the AM 6. STable for transfer out of unit. oF note, patient does not need vascath. Order was placed on the wrong patient. Will alert renal attending and vascular attending. Subjective Date of service: 12/26/19 Principal diagnosis: Sepsis septic shock Interval history: Currently off pressors. Stable BP. Eating drinking appropriately now. Responded well to fluid bolus on yesterday. Objective - Constitutional Vitals: Vital Signs - 12hr 12/25/19 12/25/19 12/25/19 22:41 22:51 23:00 Temperature Pulse Rate 111 H 110 H 112 H Pulse Rate [ From Monitor] Respiratory 19 20 21 Rate Blood Pressure 109/62 104/62 103/64 O2 Sat by Pulse 98 Oximetry 12/25/19 12/25/19 12/25/19 23:11 23:21 23:23 Temperature 97.8 F Pulse Rate 113 H 112 H Pulse Rate [ From Monitor] Respiratory 21 21 Rate Blood Pressure 103/64 109/65 O2 Sat by Pulse Oximetry 12/25/19 12/25/19 12/25/19 23:30 23:41 23:51 Temperature Pulse Rate 112 H 112 H 111 H Pulse Rate [ From Monitor] Respiratory 22 21 30 H Rate Blood Pressure 100/64 100/64 99/62 O2 Sat by Pulse Oximetry 12/26/19 12/26/19 12/26/19 00:00 00:11 00:21 Temperature Pulse Rate 113 H 109 H Pulse Rate [ 99 H From Monitor] Respiratory 21 28 H 25 H Rate Blood Pressure 103/70 103/70 104/62 O2 Sat by Pulse 100 Oximetry 12/26/19 12/26/19 12/26/19 00:30 00:41 00:51 Temperature Pulse Rate 113 H 114 H 112 H Pulse Rate [ From Monitor] Respiratory 25 H 22 27 H Rate Blood Pressure 101/61 101/61 100/62 O2 Sat by Pulse Oximetry 12/26/19 12/26/19 12/26/19 01:00 01:11 01:21 Temperature Pulse Rate 110 H 111 H 112 H Pulse Rate [ From Monitor] Respiratory 22 26 H 25 H Rate Blood Pressure 99/66 99/66 98/65 O2 Sat by Pulse Oximetry 12/26/19 12/26/19 12/26/19 01:30 01:41 01:51 Temperature Pulse Rate 110 H 110 H 112 H Pulse Rate [ From Monitor] Respiratory 20 22 22 Rate Blood Pressure 106/64 106/64 107/68 O2 Sat by Pulse Oximetry 12/26/19 12/26/19 12/26/19 02:00 02:11 02:21 Temperature Pulse Rate 114 H 110 H 111 H Pulse Rate [ From Monitor] Respiratory 20 18 21 Rate Blood Pressure 93/52 93/52 104/44 O2 Sat by Pulse Oximetry 12/26/19 12/26/19 12/26/19 02:30 02:41 02:51 Temperature Pulse Rate 113 H 110 H 111 H Pulse Rate [ From Monitor] Respiratory 21 20 21 Rate Blood Pressure 100/61 100/61 91/67 O2 Sat by Pulse Oximetry 12/26/19 12/26/19 12/26/19 03:01 03:10 03:20 Temperature Pulse Rate 114 H 112 H 109 H Pulse Rate [ From Monitor] Respiratory 19 22 22 Rate Blood Pressure 106/52 106/52 112/61 O2 Sat by Pulse Oximetry 12/26/19 12/26/19 12/26/19 03:23 03:30 03:40 Temperature 98.4 F Pulse Rate 111 H Pulse Rate [ From Monitor] Respiratory 25 H 20 Rate Blood Pressure 111/63 112/61 O2 Sat by Pulse Oximetry 12/26/19 12/26/19 12/26/19 03:51 04:00 04:11 Temperature Pulse Rate 113 H 112 H 112 H Pulse Rate [ 99 H From Monitor] Respiratory 21 23 20 Rate Blood Pressure 116/67 101/66 111/63 O2 Sat by Pulse 100 Oximetry 12/26/19 12/26/19 12/26/19 04:21 04:30 04:41 Temperature Pulse Rate 112 H 110 H 109 H Pulse Rate [ From Monitor] Respiratory 22 26 H 22 Rate Blood Pressure 123/65 99/56 99/56 O2 Sat by Pulse 99 Oximetry 12/26/19 12/26/19 12/26/19 04:51 05:00 05:11 Temperature Pulse Rate 106 H 107 H 109 H Pulse Rate [ From Monitor] Respiratory 23 20 23 Rate Blood Pressure 100/57 90/57 90/57 O2 Sat by Pulse 98 100 100 Oximetry 12/26/19 12/26/19 12/26/19 05:21 05:30 05:41 Temperature Pulse Rate 105 H 109 H 108 H Pulse Rate [ From Monitor] Respiratory 20 20 14 Rate Blood Pressure 81/57 98/59 98/59 O2 Sat by Pulse 100 99 100 Oximetry 12/26/19 12/26/19 12/26/19 05:51 06:00 06:11 Temperature Pulse Rate 109 H 107 H 109 H Pulse Rate [ From Monitor] Respiratory 20 21 23 Rate Blood Pressure 95/55 98/58 98/58 O2 Sat by Pulse 99 100 97 Oximetry 12/26/19 12/26/19 12/26/19 06:21 06:30 06:41 Temperature Pulse Rate 105 H 109 H Pulse Rate [ From Monitor] Respiratory 25 H 19 Rate Blood Pressure 96/53 85/49 85/49 O2 Sat by Pulse 90 94 100 Oximetry 12/26/19 12/26/19 12/26/19 06:51 07:00 07:11 Temperature Pulse Rate 108 H 107 H 107 H Pulse Rate [ From Monitor] Respiratory 23 22 21 Rate Blood Pressure 83/53 96/53 96/53 O2 Sat by Pulse 100 100 100 Oximetry 12/26/19 12/26/19 12/26/19 07:21 07:30 07:41 Temperature Pulse Rate 106 H 109 H 110 H Pulse Rate [ From Monitor] Respiratory 23 20 21 Rate Blood Pressure 90/44 102/58 102/58 O2 Sat by Pulse 100 100 100 Oximetry 12/26/19 12/26/19 12/26/19 07:51 08:00 08:11 Temperature 97.5 F L Pulse Rate 109 H 108 H 99 H Pulse Rate [ 100 H From Monitor] Respiratory 21 21 20 Rate Blood Pressure 101/59 93/60 93/60 O2 Sat by Pulse 100 100 100 Oximetry 12/26/19 12/26/19 12/26/19 08:21 08:27 08:30 Temperature Pulse Rate 104 H 98 H Pulse Rate [ From Monitor] Respiratory 19 20 Rate Blood Pressure 96/58 93/55 O2 Sat by Pulse 100 100 100 Oximetry 12/26/19 12/26/19 12/26/19 08:41 08:51 09:00 Temperature Pulse Rate 97 H 98 H 99 H Pulse Rate [ From Monitor] Respiratory 20 19 20 Rate Blood Pressure 93/55 91/54 90/56 O2 Sat by Pulse 100 100 100 Oximetry 12/26/19 09:11 Temperature Pulse Rate 102 H Pulse Rate [ From Monitor] Respiratory 19 Rate Blood Pressure 90/56 O2 Sat by Pulse 100 Oximetry - Labs CBC & Chem 7: 12/26/19 04:33 12/26/19 04:33 Labs: Abnormal lab results 12/25/19 12/25/19 12/25/19 Range/Units 12:25 17:34 21:16 WBC (4.5-11.0) K/mm3 RBC (3.65-5.03) M/mm3 Hgb (11.8-15.2) gm/dl Hct (35.5-45.6) % RDW (13.2-15.2) % Potassium (3.6-5.0) mmol/L Carbon Dioxide (22-30) mmol/L BUN (9-20) mg/dL Glucose (75-100) mg/dL POC Glucose 175 H 148 H 148 H (70-105) mg/dL Phosphorus (2.5-4.5) mg/dL 12/26/19 12/26/19 12/26/19 Range/Units 04:33 04:33 09:20 WBC 19.4 H (4.5-11.0) K/mm3 RBC 2.67 L (3.65-5.03) M/mm3 Hgb 8.0 L (11.8-15.2) gm/dl Hct 24.1 L (35.5-45.6) % RDW 19.0 H (13.2-15.2) % Potassium 3.4 L (3.6-5.0) mmol/L Carbon Dioxide 18 L (22-30) mmol/L BUN 42 H (9-20) mg/dL Glucose 124 H (75-100) mg/dL POC Glucose 111 H (70-105) mg/dL Phosphorus 2.30 L (2.5-4.5) mg/dL Medications & Allergies - Medications Allergies/Adverse Reactions: Allergies No Known Allergies Allergy (Verified 12/24/19 03:34) Home Medications: Home Medications Medication Instructions Recorded Confirmed Last Taken Type Acetaminophen [Non-Aspirin Extra 500 mg PO Q8HR PRN 12/24/19 12/24/19 Unknown History Strength] Acetaminophen [Tylenol] 500 mg PO Q8HR PRN 12/24/19 12/24/19 Unknown History Ascorbic Acid [Vitamin C chew] 500 mg PO BID 12/24/19 12/24/19 Unknown History Aspirin [Aspirin BABY CHEW TAB] 81 mg PO QDAY 12/24/19 12/24/19 Unknown History AtorvaSTATin [Lipitor] 40 mg PO QHS 12/24/19 12/24/19 Unknown History Bumetanide [Bumex 1 mg tab] 1 mg PO BID 12/24/19 12/24/19 Unknown History Chlorthalidone [Thalitone] 25 mg PO DAILY 12/24/19 12/24/19 Unknown History Clopidogrel [Plavix] 75 mg PO QDAY 12/24/19 12/24/19 Unknown History Docusate Sodium [Colace] 100 mg PO BID 12/24/19 12/24/19 Unknown History Ferrous Sulfate [Ferrous Sulfate 324 mg PO BID 12/24/19 12/24/19 Unknown History 324 MG] Fluticasone/Vilanterol [Breo 1 each IH DAILY 12/24/19 12/24/19 Unknown History Ellipta 200-25 Mcg INH] HYDROcodone/ACETAMINOPHEN 1 each PO Q12HR 12/24/19 12/24/19 Unknown History [Hydrocodone-Acetamin 5-300 mg] HYDROcodone/ACETAMINOPHEN 1 each PO Q8HR PRN 12/24/19 12/24/19 Unknown History [Hydrocodone-Acetamin 5-300 mg] Insulin Glargine [Lantus VIAL] 10 unit SUB-Q QHS 12/24/19 12/24/19 Unknown History Lactobacillus Acidophilus 1 each PO DAILY 12/24/19 12/24/19 Unknown History [Acidophilus] Lisinopril [Zestril TAB] 2.5 mg PO DAILY 12/24/19 12/24/19 Unknown History Mag Hydrox/Aluminum Hyd/Simeth 30 ml PO Q4H PRN 12/24/19 12/24/19 Unknown History [Maalox Advanced Suspension] Multivit-Min/Iron/Folic Acid/K 1 each PO DAILY 12/24/19 12/24/19 Unknown History [Adults Multivitamin Tablet] Protein Supplement [Promod] 30 ml PO BID 12/24/19 12/24/19 Unknown History QUEtiapine [SEROquel] 25 mg PO BID 12/24/19 12/24/19 Unknown History Sennosides/Docusate Sodium [Senna 1 each PO DAILY 12/24/19 12/24/19 Unknown History Plus 8.6-50 mg Tablet] Tamsulosin [Flomax] 0.4 mg PO QDAY 12/24/19 12/24/19 Unknown History carvediloL [Coreg] 3.125 mg PO BID 12/24/19 12/24/19 Unknown History Active Medications: Generic Name Dose Route Start Last Admin Trade Name Freq PRN Reason Stop Dose Admin Acetaminophen 650 mg 12/23/19 23:37 Tylenol PO Q4H PRN Pain MILD(1-3)/Fever >100.5/LUNSFORD Hydrocodone Bitart/Acetaminophen 1 each 12/24/19 16:54 12/26/19 10:11 [place] 5/325 PO 1 each Q12HR PRN Administration Pain, Moderate (4-6) Aspirin 81 mg 12/24/19 18:00 12/26/19 10:11 Baby Aspirin PO 81 mg QDAY DARLINE Administration Atorvastatin Calcium 40 mg 12/24/19 22:00 12/25/19 21:22 Lipitor PO 40 mg QHS DARLINE Administration Docusate Sodium 100 mg 12/24/19 22:00 12/26/19 10:11 Colace PO 100 mg BID DARLINE Administration Ferrous Gluconate 324 mg 12/24/19 22:00 12/26/19 10:12 Fergon PO 324 mg BID DARLINE Administration Norepinephrine 4 mg in 250 mls @ 7.5 mls/hr 12/23/19 22:00 12/26/19 08:00 Levophed Drip 4 Mg/Ns 250 Ml IV 0 mcg/min TITR DARLINE 0 mls/hr Titration Protocol 2 MCG/MIN Cefepime HCl 2 gm in 100 mls @ 200 mls/hr 12/25/19 11:00 12/26/19 10:12 Cefepime/Ns 2 Gm/100 Ml IV 200 mls/hr BID DARLINE Administration Protocol Insulin Glargine 10 units 12/24/19 22:00 12/25/19 21:24 Lantus SUB-Q 10 units QHS DARLINE Administration Magnesium Hydroxide 30 ml 12/23/19 23:37 12/25/19 18:15 Milk Of Magnesia PO 30 ml Q4H PRN Administration Constipation Multivitamins 1 each 12/25/19 10:00 12/26/19 10:12 Theragran Tab PO 1 each DAILY DARLINE Administration Ondansetron HCl 4 mg 12/23/19 23:37 Zofran IV Q8H PRN Nausea And Vomiting Quetiapine Fumarate 25 mg 12/24/19 22:00 12/26/19 10:12 Seroquel PO 25 mg BID DARLINE Administration Sodium Chloride 10 ml 12/24/19 10:00 12/26/19 10:13 Sodium Chloride Flush Syringe 10 Ml IV 10 ml BID DARLINE Administration Sodium Chloride 10 ml 12/23/19 23:37 Sodium Chloride Flush Syringe 10 Ml IV PRN PRN LINE FLUSH Tamsulosin HCl 0.4 mg 12/24/19 18:00 12/26/19 10:11 Flomax PO 0.4 mg QDAY DARLINE Administration Valacyclovir HCl 1,000 mg 12/25/19 14:00 12/26/19 10:12 Valtrex PO 1,000 mg TID DARLINE Administration HEART Score - HEART Score Troponin: Troponin T 0.283 ng/mL (0.00-0.029) H* 12/23/19 20:18
[2019-12-26] MEDS ORDERED: SODIUM CHLORIDE 0.9% 500 ML 500 ML IV ONE ×2 (10:48→12:21)
[2019-12-26] MEDS ORDERED: POTASSIUM PHOSPHATE 45 MMOL in SODIUM CHLORIDE 0.9% 500 ML 500 ML IV ONE (11:23)
--- NOTE | 2019-12-26 11:23 | Progress Note ---
Assessment and Plan 1. Acute kidney injury: Vasomotor nephropathy in the setting of hypotension / shock. Renal US ordered. Continue IV fluids. Monitor renal function. Creatinien level is better. Avoid nephrotoxic agents. Meds dosage based on GFR. 2. FEN: Hyponatremia, 2/2 volume depletion, improved, monitor. Anion-gap metabolic acidosis, monitor. Replete K and Phos. Monitor lytes. 3. Sepsis with shock: Likely from UTI. Continue abx. Follow cultures. Was on Levophed. Monitor blood pressure closely. 4. Metabolic encephalopathy, POA. 5. Elevated Troponin. 6. H/o hypertension. 7. Normochromic anemia, POA: S/p PRBC 12/23. Subjective: Patient was seen and examined at the bedside. - General Appearance General appearance: well-developed, well-nourished, appears stated age, no distress HEENT: ATNC, DARRICK, hearing intact, vision intact Neck: Trachea midline Respiratory: ctab Cardiology: regular, S1S2, no murmur Gastrointestinal: normoactive bowel sounds, no tenderness, not distended Integumentary: UE bruises, multiple ulcers over the toes Neurologic: able to move extremities, able to tell his name Ext: no edema noted, amputation of R lateral 4 toes Subjective Date of service: 12/26/19 Principal diagnosis: Sepsis septic shock Objective - Vital Signs Vital signs: Vital Signs - 12hr 12/25/19 12/25/19 12/25/19 23:30 23:41 23:51 Temperature Pulse Rate 112 H 112 H 111 H Pulse Rate [ From Monitor] Respiratory 22 21 30 H Rate Blood Pressure 100/64 100/64 99/62 O2 Sat by Pulse Oximetry 12/26/19 12/26/19 12/26/19 00:00 00:11 00:21 Temperature Pulse Rate 113 H 109 H Pulse Rate [ 99 H From Monitor] Respiratory 21 28 H 25 H Rate Blood Pressure 103/70 103/70 104/62 O2 Sat by Pulse 100 Oximetry 12/26/19 12/26/19 12/26/19 00:30 00:41 00:51 Temperature Pulse Rate 113 H 114 H 112 H Pulse Rate [ From Monitor] Respiratory 25 H 22 27 H Rate Blood Pressure 101/61 101/61 100/62 O2 Sat by Pulse Oximetry 12/26/19 12/26/19 12/26/19 01:00 01:11 01:21 Temperature Pulse Rate 110 H 111 H 112 H Pulse Rate [ From Monitor] Respiratory 22 26 H 25 H Rate Blood Pressure 99/66 99/66 98/65 O2 Sat by Pulse Oximetry 12/26/19 12/26/19 12/26/19 01:30 01:41 01:51 Temperature Pulse Rate 110 H 110 H 112 H Pulse Rate [ From Monitor] Respiratory 20 22 22 Rate Blood Pressure 106/64 106/64 107/68 O2 Sat by Pulse Oximetry 12/26/19 12/26/19 12/26/19 02:00 02:11 02:21 Temperature Pulse Rate 114 H 110 H 111 H Pulse Rate [ From Monitor] Respiratory 20 18 21 Rate Blood Pressure 93/52 93/52 104/44 O2 Sat by Pulse Oximetry 12/26/19 12/26/19 12/26/19 02:30 02:41 02:51 Temperature Pulse Rate 113 H 110 H 111 H Pulse Rate [ From Monitor] Respiratory 21 20 21 Rate Blood Pressure 100/61 100/61 91/67 O2 Sat by Pulse Oximetry 12/26/19 12/26/19 12/26/19 03:01 03:10 03:20 Temperature Pulse Rate 114 H 112 H 109 H Pulse Rate [ From Monitor] Respiratory 19 22 22 Rate Blood Pressure 106/52 106/52 112/61 O2 Sat by Pulse Oximetry 12/26/19 12/26/19 12/26/19 03:23 03:30 03:40 Temperature 98.4 F Pulse Rate 111 H Pulse Rate [ From Monitor] Respiratory 25 H 20 Rate Blood Pressure 111/63 112/61 O2 Sat by Pulse Oximetry 12/26/19 12/26/19 12/26/19 03:51 04:00 04:11 Temperature Pulse Rate 113 H 112 H 112 H Pulse Rate [ 99 H From Monitor] Respiratory 21 23 20 Rate Blood Pressure 116/67 101/66 111/63 O2 Sat by Pulse 100 Oximetry 12/26/19 12/26/19 12/26/19 04:21 04:30 04:41 Temperature Pulse Rate 112 H 110 H 109 H Pulse Rate [ From Monitor] Respiratory 22 26 H 22 Rate Blood Pressure 123/65 99/56 99/56 O2 Sat by Pulse 99 Oximetry 12/26/19 12/26/19 12/26/19 04:51 05:00 05:11 Temperature Pulse Rate 106 H 107 H 109 H Pulse Rate [ From Monitor] Respiratory 23 20 23 Rate Blood Pressure 100/57 90/57 90/57 O2 Sat by Pulse 98 100 100 Oximetry 12/26/19 12/26/19 12/26/19 05:21 05:30 05:41 Temperature Pulse Rate 105 H 109 H 108 H Pulse Rate [ From Monitor] Respiratory 20 20 14 Rate Blood Pressure 81/57 98/59 98/59 O2 Sat by Pulse 100 99 100 Oximetry 12/26/19 12/26/19 12/26/19 05:51 06:00 06:11 Temperature Pulse Rate 109 H 107 H 109 H Pulse Rate [ From Monitor] Respiratory 20 21 23 Rate Blood Pressure 95/55 98/58 98/58 O2 Sat by Pulse 99 100 97 Oximetry 12/26/19 12/26/19 12/26/19 06:21 06:30 06:41 Temperature Pulse Rate 105 H 109 H Pulse Rate [ From Monitor] Respiratory 25 H 19 Rate Blood Pressure 96/53 85/49 85/49 O2 Sat by Pulse 90 94 100 Oximetry 12/26/19 12/26/19 12/26/19 06:51 07:00 07:11 Temperature Pulse Rate 108 H 107 H 107 H Pulse Rate [ From Monitor] Respiratory 23 22 21 Rate Blood Pressure 83/53 96/53 96/53 O2 Sat by Pulse 100 100 100 Oximetry 12/26/19 12/26/19 12/26/19 07:21 07:30 07:41 Temperature Pulse Rate 106 H 109 H 110 H Pulse Rate [ From Monitor] Respiratory 23 20 21 Rate Blood Pressure 90/44 102/58 102/58 O2 Sat by Pulse 100 100 100 Oximetry 12/26/19 12/26/19 12/26/19 07:51 08:00 08:11 Temperature 97.5 F L Pulse Rate 109 H 108 H 99 H Pulse Rate [ 100 H From Monitor] Respiratory 21 21 20 Rate Blood Pressure 101/59 93/60 93/60 O2 Sat by Pulse 100 100 100 Oximetry 12/25/12/26/19 12/26/19 08:21 08:27 08:30 Temperature Pulse Rate 104 H 98 H Pulse Rate [ From Monitor] Respiratory 19 20 Rate Blood Pressure 96/58 93/55 O2 Sat by Pulse 100 100 100 Oximetry 10/25/12/26/19 12/26/19 08:41 08:51 09:00 Temperature Pulse Rate 97 H 98 H 99 H Pulse Rate [ From Monitor] Respiratory 20 19 20 Rate Blood Pressure 93/55 91/54 90/56 O2 Sat by Pulse 100 100 100 Oximetry 12/26/19 12/26/19 12/26/19 09:11 09:21 09:30 Temperature Pulse Rate 102 H 97 H 100 H Pulse Rate [ From Monitor] Respiratory 19 20 19 Rate Blood Pressure 90/56 102/58 95/59 O2 Sat by Pulse 100 100 100 Oximetry 12/26/19 12/26/19 12/26/19 09:41 09:51 10:00 Temperature Pulse Rate 100 H 100 H 102 H Pulse Rate [ From Monitor] Respiratory 19 19 20 Rate Blood Pressure 95/59 102/52 92/55 O2 Sat by Pulse 100 100 100 Oximetry 12/26/19 12/26/19 12/26/19 10:11 10:21 10:30 Temperature Pulse Rate 102 H 100 H 101 H Pulse Rate [ From Monitor] Respiratory 19 22 19 Rate Blood Pressure 92/55 99/57 89/59 O2 Sat by Pulse 100 100 100 Oximetry 12/26/19 12/26/19 12/26/19 10:41 10:51 11:00 Temperature Pulse Rate 99 H 102 H 101 H Pulse Rate [ From Monitor] Respiratory 26 H 23 21 Rate Blood Pressure 89/59 77/41 79/45 O2 Sat by Pulse 100 100 100 Oximetry 12/26/19 11:11 Temperature Pulse Rate 100 H Pulse Rate [ From Monitor] Respiratory 18 Rate Blood Pressure 79/45 O2 Sat by Pulse 98 Oximetry - Lab 12/26/19 04:33 12/26/19 04:33 Most recent lab results Calcium 8.6 mg/dL (8.4-10.2) 12/26/19 04:33 Phosphorus 2.30 mg/dL (2.5-4.5) L 12/26/19 04:33 Magnesium 1.80 mg/dL (1.7-2.3) 12/25/19 04:00 Urine Creatinine 32.6 mg/dL (0.1-20.0) H 12/24/19 13:10 Urine Sodium 42 mmol/L 12/24/19 13:10 Medications & Allergies - Medications Allergies/Adverse Reactions: Allergies No Known Allergies Allergy (Verified 12/24/19 03:34) Home Medications: Home Medications Medication Instructions Recorded Confirmed Last Taken Type Acetaminophen [Non-Aspirin Extra 500 mg PO Q8HR PRN 12/24/19 12/24/19 Unknown History Strength] Acetaminophen [Tylenol] 500 mg PO Q8HR PRN 12/24/19 12/24/19 Unknown History Ascorbic Acid [Vitamin C chew] 500 mg PO BID 12/24/19 12/24/19 Unknown History Aspirin [Aspirin BABY CHEW TAB] 81 mg PO QDAY 12/24/19 12/24/19 Unknown History AtorvaSTATin [Lipitor] 40 mg PO QHS 12/24/19 12/24/19 Unknown History Bumetanide [Bumex 1 mg tab] 1 mg PO BID 12/24/19 12/24/19 Unknown History Chlorthalidone [Thalitone] 25 mg PO DAILY 12/24/19 12/24/19 Unknown History Clopidogrel [Plavix] 75 mg PO QDAY 12/24/19 12/24/19 Unknown History Docusate Sodium [Colace] 100 mg PO BID 12/24/19 12/24/19 Unknown History Ferrous Sulfate [Ferrous Sulfate 324 mg PO BID 12/24/19 12/24/19 Unknown History 324 MG] Fluticasone/Vilanterol [Breo 1 each IH DAILY 12/24/19 12/24/19 Unknown History Ellipta 200-25 Mcg INH] HYDROcodone/ACETAMINOPHEN 1 each PO Q12HR 12/24/19 12/24/19 Unknown History [Hydrocodone-Acetamin 5-300 mg] HYDROcodone/ACETAMINOPHEN 1 each PO Q8HR PRN 12/24/19 12/24/19 Unknown History [Hydrocodone-Acetamin 5-300 mg] Insulin Glargine [Lantus VIAL] 10 unit SUB-Q QHS 12/24/19 12/24/19 Unknown History Lactobacillus Acidophilus 1 each PO DAILY 12/24/19 12/24/19 Unknown History [Acidophilus] Lisinopril [Zestril TAB] 2.5 mg PO DAILY 12/24/19 12/24/19 Unknown History Mag Hydrox/Aluminum Hyd/Simeth 30 ml PO Q4H PRN 12/24/19 12/24/19 Unknown History [Maalox Advanced Suspension] Multivit-Min/Iron/Folic Acid/K 1 each PO DAILY 12/24/19 12/24/19 Unknown History [Adults Multivitamin Tablet] Protein Supplement [Promod] 30 ml PO BID 12/24/19 12/24/19 Unknown History QUEtiapine [SEROquel] 25 mg PO BID 12/24/19 12/24/19 Unknown History Sennosides/Docusate Sodium [Senna 1 each PO DAILY 12/24/19 12/24/19 Unknown History Plus 8.6-50 mg Tablet] Tamsulosin [Flomax] 0.4 mg PO QDAY 12/24/19 12/24/19 Unknown History carvediloL [Coreg] 3.125 mg PO BID 12/24/19 12/24/19 Unknown History Active Medications: Generic Name Dose Route Start Last Admin Trade Name Freq PRN Reason Stop Dose Admin Acetaminophen 650 mg 12/23/19 23:37 Tylenol PO Q4H PRN Pain MILD(1-3)/Fever >100.5/[place] Hydrocodone Bitart/Acetaminophen 1 each 12/24/19 16:54 12/26/19 10:11 [place] 5/325 PO 1 each Q12HR PRN Administration Pain, Moderate (4-6) Aspirin 81 mg 12/24/19 18:00 12/26/19 10:11 Baby Aspirin PO 81 mg QDAY DARLINE Administration Atorvastatin Calcium 40 mg 12/24/19 22:00 12/25/19 21:22 Lipitor PO 40 mg QHS DARLINE Administration Docusate Sodium 100 mg 12/24/19 22:00 12/26/19 10:11 Colace PO 100 mg BID DARLINE Administration Ferrous Gluconate 324 mg 12/24/19 22:00 12/26/19 10:12 Fergon PO 324 mg BID DARLINE Administration Norepinephrine 4 mg in 250 mls @ 7.5 mls/hr 12/23/19 22:00 12/26/19 08:00 Levophed Drip 4 Mg/Ns 250 Ml IV 0 mcg/min TITR DARLINE 0 mls/hr Titration Protocol 2 MCG/MIN Cefepime HCl 2 gm in 100 mls @ 200 mls/hr 12/25/19 11:00 12/26/19 10:12 Cefepime/Ns 2 Gm/100 Ml IV 200 mls/hr BID DARLINE Administration Protocol Insulin Glargine 10 units 12/24/19 22:00 12/25/19 21:24 Lantus SUB-Q 10 units QHS DARLINE Administration Magnesium Hydroxide 30 ml 12/23/19 23:37 12/25/19 18:15 Milk Of Magnesia PO 30 ml Q4H PRN Administration Constipation Multivitamins 1 each 12/25/19 10:00 12/26/19 10:12 Theragran Tab PO 1 each DAILY DARLINE Administration Ondansetron HCl 4 mg 12/23/19 23:37 Zofran IV Q8H PRN Nausea And Vomiting Quetiapine Fumarate 25 mg 12/24/19 22:00 12/26/19 10:12 Seroquel PO 25 mg BID DARLINE Administration Sodium Chloride 10 ml 12/24/19 10:00 12/26/19 10:13 Sodium Chloride Flush Syringe 10 Ml IV 10 ml BID DARLINE Administration Sodium Chloride 10 ml 12/23/19 23:37 Sodium Chloride Flush Syringe 10 Ml IV PRN PRN LINE FLUSH Tamsulosin HCl 0.4 mg 12/24/19 18:00 12/26/19 10:11 Flomax PO 0.4 mg QDAY DARLINE Administration Valacyclovir HCl 1,000 mg 12/25/19 14:00 12/26/19 10:12 Valtrex PO 1,000 mg TID DARLINE Administration
[2019-12-26] MEDS: MIDODRINE 5 MG TAB PO SCH ×2 (13:47→22:03)
--- NOTE | 2019-12-26 16:30 | Progress Note ---
Assessment and Plan - Patient Problems (1) Sepsis with encephalopathy and septic shock Current Visit: Yes Status: Acute Plan to address problem: Significant improvement no longer encephalopathic alert and oriented . Patient has poor cognition whether this is secondary to dementia. Patient also able to wean off pressors. Currently afebrile. Clinically much improved. (2) Anemia Current Visit: Yes Status: Acute Qualifiers: Anemia type: unspecified type Qualified Code(s): D64.9 - Anemia, unspecified Plan to address problem: At present most likely chronic however patient's hematocrit decreased from 7 to below 6. This is associated with hypotension and tachycardia will benefit from correction even though it may be chronic. Transfuse 1 unit packed red blood cells. Patient is stable after transfusion of 1 unit packed red blood cells. (3) Full code status Current Visit: Yes Status: Acute Plan to address problem: Could not address this with patient. Did evaluate patient's mcc. Did see noted from nurse had the charge of power of assistant city attorney due to [facility]'s office. This is since been outdated. We will phone him to Dr. Jewell for transfusion of blood products. At some point patient would also need to be reevaluated for his CODE STATUS. At this particular time lacks adequate cognition. (4) Hypotension Current Visit: Yes Status: Acute Qualifiers: Hypotension type: unspecified hypotension type Qualified Code(s): I95.9 - Hypotension, unspecified Plan to address problem: Off pressor support secondary to sepsis anemia. (5) UTI (urinary tract infection) Current Visit: Yes Status: Acute Qualifiers: Urinary tract infection type: acute cystitis Hematuria presence: with hematuria Qualified Code(s): N30.01 - Acute cystitis with hematuria Plan to address problem: Continue cefepime follow blood culture data. Aggressive volume replacement. No flank pain decreased fever curve. (6) Herpes genitalis in men Current Visit: Yes Status: Acute Plan to address problem: Treated with Valtrex 3 times daily. 7 days. Subjective Date of service: 12/26/19 Principal diagnosis: Sepsis septic shock Interval history: 64-year-old male resident of local [facility] with known history of hypertension and CHF was brought into the emergency room today for evaluation of abnormal labs. He was found to have elevated creatinine without any known history of kidney disease. Upon arrival in the emergency room he was found to be hypotensive and was given some IV fluid. Work-up in the emergency room today reveals hemoglobin of 7.7, lactic acidosis, elevated troponin and elevated creatinine of 2.9. Urinalysis was significant for a urinary tract infection and CT scan of the head was unremarkable. Patient has been admitted for sepsis, anemia UTI. Patient at present is more alert able to talk. Has behavioral problems. This is old secondary to review of patient's home medications and we have several antipsychotic medications. As well as mood stabilizing agents. Patient is doing well today able to speak with you full sentences. Somewhat confused but alert to where he is and to himself. Hospital course at this time complicated by anemia which requires transfusion. Patient also remains on pressors for hypotension. 12/24/2019 patient developed herpes lesion around penis painful, hypokalemia and transfuse 1 unit packed red blood cells which he tolerated well. Continue to wean off of pressors will transfer from ICU. 12/25/2019. Patient continues to improve. Able to wean pressors down to 4 mics remains hypertensive however. Patient much more alert. Fever curve decreasing leukocytosis improving. 12/26/2019. Patient continues to improve able to wean off pressor support today no new concerns over night Objective - Constitutional Vitals: Vital Signs - 12hr 12/26/19 12/26/19 12/26/19 04:30 04:41 04:51 Temperature Pulse Rate 110 H 109 H 106 H Pulse Rate [ From Monitor] Respiratory 26 H 22 23 Rate Blood Pressure 99/56 99/56 100/57 O2 Sat by Pulse 99 98 Oximetry 12/26/19 12/26/19 12/26/19 05:00 05:11 05:21 Temperature Pulse Rate 107 H 109 H 105 H Pulse Rate [ From Monitor] Respiratory 20 23 20 Rate Blood Pressure 90/57 90/57 81/57 O2 Sat by Pulse 100 100 100 Oximetry 12/26/19 12/26/19 12/26/19 05:30 05:41 05:51 Temperature Pulse Rate 109 H 108 H 109 H Pulse Rate [ From Monitor] Respiratory 20 14 20 Rate Blood Pressure 98/59 98/59 95/55 O2 Sat by Pulse 99 100 99 Oximetry 12/26/19 12/26/19 12/26/19 06:00 06:11 06:21 Temperature Pulse Rate 107 H 109 H 105 H Pulse Rate [ From Monitor] Respiratory 21 23 25 H Rate Blood Pressure 98/58 98/58 96/53 O2 Sat by Pulse 100 97 90 Oximetry 12/25/12/25/20 12/26/19 06:30 06:41 06:51 Temperature Pulse Rate 109 H 108 H Pulse Rate [ From Monitor] Respiratory 19 23 Rate Blood Pressure 85/49 85/49 83/53 O2 Sat by Pulse 94 100 100 Oximetry 12/26/1912/25/12/26/19 07:00 07:11 07:21 Temperature Pulse Rate 107 H 107 H 106 H Pulse Rate [ From Monitor] Respiratory 22 21 23 Rate Blood Pressure 96/53 96/53 90/44 O2 Sat by Pulse 100 100 100 Oximetry 12/26/19 12/26/19 12/26/19 07:30 07:41 07:51 Temperature Pulse Rate 109 H 110 H 109 H Pulse Rate [ From Monitor] Respiratory 20 21 21 Rate Blood Pressure 102/58 102/58 101/59 O2 Sat by Pulse 100 100 100 Oximetry 12/26/19 12/26/19 12/26/19 08:00 08:11 08:21 Temperature 97.5 F L Pulse Rate 108 H 99 H 104 H Pulse Rate [ 100 H From Monitor] Respiratory 21 20 19 Rate Blood Pressure 93/60 93/60 96/58 O2 Sat by Pulse 100 100 100 Oximetry 12/26/19 12/26/19 12/26/19 08:27 08:30 08:41 Temperature Pulse Rate 98 H 97 H Pulse Rate [ From Monitor] Respiratory 20 20 Rate Blood Pressure 93/55 93/55 O2 Sat by Pulse 100 100 100 Oximetry 12/26/19 12/26/19 12/26/19 08:51 09:00 09:11 Temperature Pulse Rate 98 H 99 H 102 H Pulse Rate [ From Monitor] Respiratory 19 20 19 Rate Blood Pressure 91/54 90/56 90/56 O2 Sat by Pulse 100 100 100 Oximetry 12/25/12/25/12/26/19 09:21 09:30 09:41 Temperature Pulse Rate 97 H 100 H 100 H Pulse Rate [ From Monitor] Respiratory 20 19 19 Rate Blood Pressure 102/58 95/59 95/59 O2 Sat by Pulse 100 100 100 Oximetry 12/26/1912/25/12/26/19 09:51 10:00 10:11 Temperature Pulse Rate 100 H 102 H 102 H Pulse Rate [ From Monitor] Respiratory 19 20 19 Rate Blood Pressure 102/52 92/55 92/55 O2 Sat by Pulse 100 100 100 Oximetry 12/26/19 12/26/19 12/26/19 10:21 10:30 10:41 Temperature Pulse Rate 100 H 101 H 99 H Pulse Rate [ From Monitor] Respiratory 22 19 26 H Rate Blood Pressure 99/57 89/59 89/59 O2 Sat by Pulse 100 100 100 Oximetry 12/26/19 12/26/19 12/26/19 10:51 11:00 11:11 Temperature Pulse Rate 102 H 101 H 100 H Pulse Rate [ From Monitor] Respiratory 23 21 18 Rate Blood Pressure 77/41 79/45 79/45 O2 Sat by Pulse 100 100 98 Oximetry 12/26/19 12/26/19 12/26/19 11:21 11:30 11:41 Temperature Pulse Rate 100 H 99 H 99 H Pulse Rate [ From Monitor] Respiratory 20 19 25 H Rate Blood Pressure 78/44 84/43 84/43 O2 Sat by Pulse 100 100 100 Oximetry 12/26/19 12/26/19 12/26/19 11:51 12:00 12:11 Temperature 97.5 F L Pulse Rate 98 H 99 H 102 H Pulse Rate [ 98 H From Monitor] Respiratory 18 17 22 Rate Blood Pressure 81/48 89/48 85/48 O2 Sat by Pulse 100 100 100 Oximetry 12/26/19 12/26/19 12/26/19 12:21 12:30 12:41 Temperature Pulse Rate 94 H 97 H 99 H Pulse Rate [ From Monitor] Respiratory 19 24 20 Rate Blood Pressure 85/48 90/51 90/51 O2 Sat by Pulse 98 97 100 Oximetry 12/26/19 12/26/19 12/26/19 12:51 13:00 13:11 Temperature Pulse Rate 98 H 96 H 95 H Pulse Rate [ From Monitor] Respiratory 24 19 16 Rate Blood Pressure 90/51 84/48 84/48 O2 Sat by Pulse 94 99 100 Oximetry 12/26/19 12/26/19 12/26/19 13:21 13:30 13:41 Temperature Pulse Rate 94 H 95 H 95 H Pulse Rate [ From Monitor] Respiratory 20 18 17 Rate Blood Pressure 83/47 77/40 77/40 O2 Sat by Pulse 97 99 99 Oximetry 12/26/19 12/26/19 12/26/19 13:51 14:00 14:11 Temperature Pulse Rate 100 H 96 H 97 H Pulse Rate [ From Monitor] Respiratory 16 18 18 Rate Blood Pressure 80/39 87/44 87/44 O2 Sat by Pulse 100 100 100 Oximetry 12/26/19 12/26/19 12/26/19 14:21 14:30 14:41 Temperature Pulse Rate 98 H 101 H 101 H Pulse Rate [ From Monitor] Respiratory 19 17 24 Rate Blood Pressure 79/45 88/41 88/41 O2 Sat by Pulse 100 100 100 Oximetry 12/26/19 12/26/19 14:51 15:00 Temperature Pulse Rate 101 H 100 H Pulse Rate [ From Monitor] Respiratory 22 29 H Rate Blood Pressure 94/53 90/51 O2 Sat by Pulse 100 100 Oximetry General appearance: Present: no acute distress, cachectic - Respiratory Respiratory: bilateral: diminished, rhonchi (few) Extremities: pulses intact, No edema, normal color, Full ROM - Gastrointestinal General gastrointestinal: Present: soft, non-tender, non-distended, normal bowel sounds - Musculoskeletal Musculoskeletal: generalized weakness - Neurologic Neurologic: focal deficits - Psychiatric Psychiatric: other (dementia mood stable) - Labs CBC & Chem 7: 12/26/19 04:33 12/26/19 04:33 Labs: Abnormal lab results 12/25/19 12/25/19 12/26/19 Range/Units 17:34 21:16 04:33 WBC (4.5-11.0) K/mm3 RBC (3.65-5.03) M/mm3 Hgb (11.8-15.2) gm/dl Hct (35.5-45.6) % RDW (13.2-15.2) % Potassium 3.4 L (3.6-5.0) mmol/L Carbon Dioxide 18 L (22-30) mmol/L BUN 42 H (9-20) mg/dL Glucose 124 H (75-100) mg/dL POC Glucose 148 H 148 H (70-105) mg/dL Phosphorus 2.30 L (2.5-4.5) mg/dL 12/26/19 12/26/19 Range/Units 04:33 09:20 WBC 19.4 H (4.5-11.0) K/mm3 RBC 2.67 L (3.65-5.03) M/mm3 Hgb 8.0 L (11.8-15.2) gm/dl Hct 24.1 L (35.5-45.6) % RDW 19.0 H (13.2-15.2) % Potassium (3.6-5.0) mmol/L Carbon Dioxide (22-30) mmol/L BUN (9-20) mg/dL Glucose (75-100) mg/dL POC Glucose 111 H (70-105) mg/dL Phosphorus (2.5-4.5) mg/dL HEART Score - HEART Score Troponin: Troponin T 0.283 ng/mL (0.00-0.029) H* 12/23/19 20:18
[2019-12-26] MEDS: INSULIN GLARGINE 100 UNITS/ML SUB-Q SCH (23:00)
--- NOTE | 2019-12-27 07:41 | Progress Note ---
Assessment and Plan - Patient Problems (1) Sepsis with encephalopathy and septic shock Current Visit: Yes Status: Acute Plan to address problem: Significant improvement no longer encephalopathic alert and oriented . Patient has poor cognition whether this is secondary to dementia. Patient is back at baseline much more alert. No longer encephalopathic. Sepsis has improved.. Currently afebrile. Clinically much improved. (2) Anemia Current Visit: Yes Status: Acute Qualifiers: Anemia type: unspecified type Qualified Code(s): D64.9 - Anemia, unspecified Plan to address problem: At present most likely chronic however patient's hematocrit decreased from 7 to below 6. This is associated with hypotension and tachycardia will benefit from correction even though it may be chronic. Transfuse 1 unit packed red blood cells. Patient is stable after transfusion of 1 unit packed red blood cells. Patient tolerated transfusion 1 unit packed red blood cells H&H stable today. (3) Full code status Current Visit: Yes Status: Acute Plan to address problem: Could not address this with patient. Did evaluate patient's correction. Did see noted from nurse had the charge of power of deputy commonwealth's attorney due to [facility]'s office. This is since been outdated. We will phone him to Dr. Jewell for transfusion of blood products. At some point patient would also need to be reevaluated for his CODE STATUS. At this particular time lacks adequate cognition. (4) Hypotension Current Visit: Yes Status: Acute Qualifiers: Hypotension type: unspecified hypotension type Qualified Code(s): I95.9 - Hypotension, unspecified Plan to address problem: Secondary to sepsis present on admission. Patient off pressor support. Blood pressure remains low 97/60 but stable no need to add pressor support again at this time. (5) UTI (urinary tract infection) Current Visit: Yes Status: Acute Qualifiers: Urinary tract infection type: acute cystitis Hematuria presence: with hematuria Qualified Code(s): N30.01 - Acute cystitis with hematuria Plan to address problem: Sepsis with UTI. Continue present treatment with cefepime will continue to complete 7 days. Clinically patient much better today. Increase urinary output. Dehydration improving. Continue supportive care IV antibiotics as were doing. Anticipate discharge 1 to 2 days. (6) Herpes genitalis in men Current Visit: Yes Status: Acute Plan to address problem: Treated with Valtrex 3 times daily. 7 days. (7) Peripheral vascular disease of extremity with claudication Current Visit: Yes Status: Acute Plan to address problem: PVD secondary to claudication decrease vascular pulses. Patient has pain at present not a candidate for any invasive testing and does not require amputation. Patient does have some ischemic digits. (8) Discharge planning issues Current Visit: Yes Status: Acute Plan to address problem: We will obtain Covid test in anticipation to discharge back to nursing facility. (9) Dementia with behavioral disturbance Current Visit: Yes Status: Acute Plan to address problem: Patient most likely require some antipsychotic medications. To stabilize mood. Subjective Date of service: 12/27/19 Principal diagnosis: Sepsis septic shock Interval history: 64-year-old male resident of local SNF with known history of hypertension and CHF was brought into the emergency room today for evaluation of abnormal labs. He was found to have elevated creatinine without any known history of kidney disease. Upon arrival in the emergency room he was found to be hypotensive and was given some IV fluid. Work-up in the emergency room today reveals hemoglobin of 7.7, lactic acidosis, elevated troponin and elevated creatinine of 2.9. Urinalysis was significant for a urinary tract infection and CT scan of the head was unremarkable. Patient has been admitted for sepsis, anemia UTI. Patient at present is more alert able to talk. Has behavioral problems. This is old secondary to review of patient's home medications and we have several antipsychotic medications. As well as mood stabilizing agents. Patient is doing well today able to speak with you full sentences. Somewhat confused but alert to where he is and to himself. Hospital course at this time complicated by anemia which requires transfusion. Patient also remains on pressors for hypotension. 12/24/2019 patient developed herpes lesion around penis painful, hypokalemia and transfuse 1 unit packed red blood cells which he tolerated well. Continue to we an off of pressors will transfer from ICU. 12/25/2019. Patient continues to improve. Able to wean pressors down to 4 mics remains hypertensive however. Patient much more alert. Fever curve decreasing leukocytosis improving. 12/26/2019. Patient continues to improve able to wean off pressor support today no new concerns over night December 27, 2019. Patient off pressor support. Much more alert and occasionally combative. Not requiring restraints. Patient does complain of lower extremity pain in which she is has evidence of ischemia. We will add pain management to his current regime. Sepsis improving leukocytosis improving decrease fever curve and clinically patient more alert. Objective - Constitutional Vitals: Vital Signs - 12hr 12/26/19 12/27/19 12/27/19 21:50 01:56 02:00 Temperature 98.7 F Pulse Rate 103 H 107 H Respiratory 18 18 Rate Blood Pressure 93/61 O2 Sat by Pulse 95 98 Oximetry 12/27/19 05:55 Temperature 97.5 F L Pulse Rate 112 H Respiratory 16 Rate Blood Pressure 96/61 O2 Sat by Pulse 99 Oximetry General appearance: Present: no acute distress, well-nourished - EENT Eyes: PERRL, EOM intact ENT: hearing intact, clear oral mucosa Ears: bilateral: normal - Neck Neck: supple, normal ROM - Respiratory Respiratory effort: normal Respiratory: bilateral: CTA - Breasts Breasts: normal - Cardiovascular Rhythm: regular Heart Sounds: Present: S1 & S2. Absent: gallop, rub Extremities: pulses intact, No edema, Full ROM Extremity abnormal: other (Patient Lisfranc amputation right foot. Decreased pulses. Ischemic digits. No gangrene.) - Gastrointestinal General gastrointestinal: Present: soft, non-tender, non-distended, normal bowel sounds - Genitourinary Male genitourinary: normal - Integumentary Integumentary: clear, warm, dry - Musculoskeletal Musculoskeletal: 1, strength equal bilaterally - Neurologic Neurologic: moves all extremities - Psychiatric Psychiatric: other (Poor cognition cooperative can be combative a conversation. Poor judgment ) - Labs CBC & Chem 7: 12/27/19 06:52 12/27/19 06:52 Labs: Abnormal lab results 12/26/19 12/26/19 Range/Units 09:20 16:51 POC Glucose 111 H 107 H (70-105) mg/dL HEART Score - HEART Score Troponin: Troponin T 0.283 ng/mL (0.00-0.029) H* 12/23/19 20:18
[2019-12-27 09:03] LABS: Basophils % (Auto) 0.3 % (0.0-1.8); Eosinophils % (Auto) 0.1 % (0.0-4.3); Hematocrit 21.4 % (35.5-45.6); Hemoglobin 7.3 gm/dl (11.8-15.2); Lymphocytes # (Auto) 1.5 K/mm3 (1.2-5.4); Lymphocytes % (Auto) 10.8 % (13.4-35.0); Mean Corpuscular HGB Conc 34 % (32-34); Mean Corpuscular Volume 88 fl (84-94); Monocytes # (Auto) 1.2 K/mm3 (0.0-0.8); Monocytes % (Auto) 8.8 % (0.0-7.3); Platelet Count 161 K/mm3 (140-440); Red Blood Count 2.43 M/mm3 (3.65-5.03); Red Cell Distribution Width 18.8 % (13.2-15.2)
[2019-12-27 09:36] LABS: BUN/Creatinine Ratio 36; Blood Urea Nitrogen 29 mg/dL (9-20); Calcium 8.2 mg/dL (8.4-10.2); Hemolysis Index 1
[2019-12-27] MEDS: QUEtiapine 25 MG TAB PO SCH ×2 (10:19→21:20)
[2019-12-27] MEDS: TAMSULOSIN 0.4 MG CAP PO SCH (10:19)
[2019-12-27] MEDS: MULTIVITAMINS ,THERAPEUTIC TAB PO SCH (10:19)
[2019-12-27] MEDS: ASPIRIN 81 MG TAB CHEW PO SCH (10:19)
[2019-12-27] MEDS: MIDODRINE 5 MG TAB PO SCH ×2 (10:19→21:21)
[2019-12-27] MEDS: valACYclovir 500 MG TAB PO SCH ×3 (10:19→21:21)
[2019-12-27] MEDS: DOCUSATE SODIUM 100 MG CAP PO SCH ×2 (10:19→21:20)
[2019-12-27] MEDS: CEFEPIME/NS 2 GM/100 ML 2 GM/100 ML BAG IV SCH ×2 (10:21→21:20)
[2019-12-27] MEDS ORDERED: POTASSIUM PHOSPHATE 45 MMOL in SODIUM CHLORIDE 0.9% 500 ML 500 ML IV ONE (11:30)
--- NOTE | 2019-12-27 14:11 | Progress Note ---
Assessment and Plan 1. Acute kidney injury: Vasomotor nephropathy in the setting of hypotension / shock. Renal US negative for hydro. Continue IV fluids. Monitor renal function. Creatinine level is better. Avoid nephrotoxic agents. Meds dosage based on GFR. 2. FEN: Hyponatremia, 2/2 volume depletion, improved, monitor. Anion-gap metabolic acidosis, monitor. Replete K and Phos. Monitor lytes. 3. Sepsis with shock: Likely from UTI. Continue abx. Follow cultures. Was on Levophed. On Midodrine. Monitor blood pressure closely. 4. Metabolic encephalopathy, POA. 5. Elevated Troponin. 6. H/o hypertension. 7. Normochromic anemia, POA: S/p PRBC 12/23. Subjective: Patient was seen and examined at the bedside. Doing ok. - General Appearance General appearance: well-developed, well-nourished, appears stated age, no distress HEENT: ATNC, DARRICK, hearing intact, vision intact Neck: Trachea midline Respiratory: ctab Cardiology: regular, S1S2, no murmur Gastrointestinal: normoactive bowel sounds, no tenderness, not distended Integumentary: UE bruises, multiple ulcers over the toes Neurologic: able to move extremities, able to tell his name, appears confused Ext: no edema noted, amputation of R lateral 4 toes Subjective Date of service: 12/27/19 Principal diagnosis: Sepsis septic shock Objective - Vital Signs Vital signs: Vital Signs - 12hr 12/27/19 12/27/19 05:55 10:00 Temperature 97.5 F L Pulse Rate 112 H Respiratory 16 Rate Blood Pressure 96/61 O2 Sat by Pulse 99 100 Oximetry - Lab 12/27/19 06:52 12/27/19 06:52 Most recent lab results Calcium 8.2 mg/dL (8.4-10.2) L 12/27/19 06:52 Phosphorus 1.90 mg/dL (2.5-4.5) L 12/27/19 06:52 Magnesium 1.80 mg/dL (1.7-2.3) 12/25/19 04:00 Urine Creatinine 32.6 mg/dL (0.1-20.0) H 12/24/19 13:10 Urine Sodium 42 mmol/L 12/24/19 13:10 Medications & Allergies - Medications Allergies/Adverse Reactions: Allergies No Known Allergies Allergy (Verified 12/24/19 03:34) Home Medications: Home Medications Medication Instructions Recorded Confirmed Last Taken Type Acetaminophen [Non-Aspirin Extra 500 mg PO Q8HR PRN 12/24/19 12/24/19 Unknown History Strength] Acetaminophen [Tylenol] 500 mg PO Q8HR PRN 12/24/19 12/24/19 Unknown History Ascorbic Acid [Vitamin C chew] 500 mg PO BID 12/24/19 12/24/19 Unknown History Aspirin [Aspirin BABY CHEW TAB] 81 mg PO QDAY 12/24/19 12/24/19 Unknown History AtorvaSTATin [Lipitor] 40 mg PO QHS 12/24/19 12/24/19 Unknown History Bumetanide [Bumex 1 mg tab] 1 mg PO BID 12/24/19 12/24/19 Unknown History Chlorthalidone [Thalitone] 25 mg PO DAILY 12/24/19 12/24/19 Unknown History Clopidogrel [Plavix] 75 mg PO QDAY 12/24/19 12/24/19 Unknown History Docusate Sodium [Colace] 100 mg PO BID 12/24/19 12/24/19 Unknown History Ferrous Sulfate [Ferrous Sulfate 324 mg PO BID 12/24/19 12/24/19 Unknown History 324 MG] Fluticasone/Vilanterol [Breo 1 each IH DAILY 12/24/19 12/24/19 Unknown History Ellipta 200-25 Mcg INH] HYDROcodone/ACETAMINOPHEN 1 each PO Q12HR 12/24/19 12/24/19 Unknown History [Hydrocodone-Acetamin 5-300 mg] HYDROcodone/ACETAMINOPHEN 1 each PO Q8HR PRN 12/24/19 12/24/19 Unknown History [Hydrocodone-Acetamin 5-300 mg] Insulin Glargine [Lantus VIAL] 10 unit SUB-Q QHS 12/24/19 12/24/19 Unknown History Lactobacillus Acidophilus 1 each PO DAILY 12/24/19 12/24/19 Unknown History [Acidophilus] Lisinopril [Zestril TAB] 2.5 mg PO DAILY 12/24/19 12/24/19 Unknown History Mag Hydrox/Aluminum Hyd/Simeth 30 ml PO Q4H PRN 12/24/19 12/24/19 Unknown History [Maalox Advanced Suspension] Multivit-Min/Iron/Folic Acid/K 1 each PO DAILY 12/24/19 12/24/19 Unknown History [Adults Multivitamin Tablet] Protein Supplement [Promod] 30 ml PO BID 12/24/19 12/24/19 Unknown History QUEtiapine [SEROquel] 25 mg PO BID 12/24/19 12/24/19 Unknown History Sennosides/Docusate Sodium [Senna 1 each PO DAILY 12/24/19 12/24/19 Unknown History Plus 8.6-50 mg Tablet] Tamsulosin [Flomax] 0.4 mg PO QDAY 12/24/19 12/24/19 Unknown History carvediloL [Coreg] 3.125 mg PO BID 12/24/19 12/24/19 Unknown History Active Medications: Generic Name Dose Route Start Last Admin Trade Name Freq PRN Reason Stop Dose Admin Acetaminophen 650 mg 12/23/19 23:37 Tylenol PO Q4H PRN Pain MILD(1-3)/Fever >100.5/LUNSFORD Hydrocodone Bitart/Acetaminophen 1 each 12/24/19 16:54 12/26/19 10:11 [place] 5/325 PO 1 each Q12HR PRN Administration Pain, Moderate (4-6) Aspirin 81 mg 12/24/19 18:00 12/27/19 10:19 Baby Aspirin PO 81 mg QDAY DARLINE Administration Atorvastatin Calcium 40 mg 12/24/19 22:00 12/26/19 22:03 Lipitor PO 40 mg QHS DARLINE Administration Docusate Sodium 100 mg 12/24/19 22:00 12/27/19 10:19 Colace PO 100 mg BID DARLINE Administration Ferrous Gluconate 324 mg 12/24/19 22:00 12/26/19 22:05 Fergon PO 324 mg BID DARLINE Administration Cefepime HCl 2 gm in 100 mls @ 200 mls/hr 12/25/19 11:00 12/27/19 10:21 Cefepime/Ns 2 Gm/100 Ml IV 200 mls/hr BID DARLINE Administration Protocol Potassium Phosphate 45 mmol/ 515 mls @ 85 mls/hr 12/27/19 11:30 12/27/19 13:49 Sodium Chloride IV 12/27/19 17:33 85 mls/hr ONCE ONE Administration Insulin Glargine 10 units 12/24/19 22:00 12/26/19 23:00 Lantus SUB-Q Not Given QHS DARLINE Magnesium Hydroxide 30 ml 12/23/19 23:37 12/25/19 18:15 Milk Of Magnesia PO 30 ml Q4H PRN Administration Constipation Midodrine 5 mg 12/26/19 14:00 12/27/19 10:19 Proamatine PO 5 mg BID DARLINE Administration Multivitamins 1 each 12/25/19 10:00 12/27/19 10:19 Theragran Tab PO 1 each DAILY DARLINE Administration Ondansetron HCl 4 mg 12/23/19 23:37 Zofran IV Q8H PRN Nausea And Vomiting Quetiapine Fumarate 25 mg 12/24/19 22:00 12/27/19 10:19 Seroquel PO 25 mg BID DARLINE Administration Sodium Chloride 10 ml 12/24/19 10:00 12/27/19 10:20 Sodium Chloride Flush Syringe 10 Ml IV 10 ml BID DARLINE Administration Sodium Chloride 10 ml 12/23/19 23:37 Sodium Chloride Flush Syringe 10 Ml IV PRN PRN LINE FLUSH Tamsulosin HCl 0.4 mg 12/24/19 18:00 12/27/19 10:19 Flomax PO 0.4 mg QDAY DARLINE Administration Valacyclovir HCl 1,000 mg 12/25/19 14:00 12/27/19 10:19 Valtrex PO 01/01/20 08:01 1,000 mg TID DARLINE Administration
[2019-12-27] MEDS: FERROUS GLUCONATE 324 MG TAB PO SCH ×2 (17:14→21:21)
[2019-12-27] MEDS: INSULIN GLARGINE 100 UNITS/ML SUB-Q SCH (21:21)
[2019-12-27] MEDS: HYDROcodone/ACETAMINOPHEN 5-325 MG TAB PO PRN (21:26)
[2019-12-28] MEDS ORDERED: DOCUSATE SODIUM 100 MG CAP ONE (10:00)
[2019-12-28] MEDS ORDERED: MULTIVITAMINS ,THERAPEUTIC TAB PO ONE (10:00)
[2019-12-28] MEDS ORDERED: MIDODRINE 5 MG TAB ONE (10:00)
[2019-12-28] MEDS ORDERED: HYDROcodone/ACETAMINOPHEN 5-325 MG TAB ONE (10:00)
[2019-12-28] MEDS ORDERED: TAMSULOSIN 0.4 MG CAP PO ONE (10:00)
[2019-12-28] MEDS ORDERED: QUEtiapine 25 MG TAB ONE (10:00)
[2019-12-28] MEDS ORDERED: CEFEPIME IV ONE (10:00)
[2019-12-28] MEDS ORDERED: ONDANSETRON 4 MG/2 ML INJ ONE (10:00)
[2019-12-28] MEDS ORDERED: valACYclovir 500 MG TAB ONE (10:00)
[2019-12-28] MEDS ORDERED: NS IV ONE (10:00)
[2019-12-28] MEDS ORDERED: ASPIRIN 81 MG TAB CHEW ONE (10:00)
--- NOTE | 2019-12-28 19:43 | Progress Note ---
Assessment and Plan 1. Acute kidney injury: Vasomotor nephropathy in the setting of hypotension / shock. Renal US negative for hydro. Monitor renal function. Creatinine level is better. Avoid nephrotoxic agents. Meds dosage based on GFR. No labs from today. 2. FEN: Hyponatremia, 2/2 volume depletion, improved, monitor. Anion-gap metabolic acidosis, monitor. Replete lytes as needed. Monitor lytes. 3. Sepsis with shock: Likely from UTI. Continue abx. Follow cultures. Was on Levophed. On Midodrine. Monitor blood pressure closely. 4. Metabolic encephalopathy, POA. 5. Elevated Troponin. 6. H/o hypertension. 7. Normochromic anemia, POA: S/p PRBC 12/23. Subjective: Patient was seen and examined at the bedside. Doing ok. - General Appearance General appearance: well-developed, well-nourished, appears stated age, no distress HEENT: ATNC, DARRICK, hearing intact, vision intact Neck: Trachea midline Respiratory: ctab Cardiology: regular, S1S2, no murmur Gastrointestinal: normoactive bowel sounds, no tenderness, not distended Integumentary: UE bruises, multiple ulcers over the toes Neurologic: able to move extremities, able to tell his name, appears confused Ext: no edema noted, amputation of R lateral 4 toes Subjective Date of service: 12/28/19 Principal diagnosis: Sepsis septic shock Objective - Vital Signs Vital signs: Vital Signs - 12hr 12/28/19 12/28/19 12/28/19 10:24 10:25 17:47 Temperature 98.2 F Pulse Rate 103 H 101 H 103 H Respiratory 18 Rate Blood Pressure 94/58 O2 Sat by Pulse 100 95 88 Oximetry - Lab 12/27/19 06:52 12/27/19 06:52 Most recent lab results Calcium 8.2 mg/dL (8.4-10.2) L 12/27/19 06:52 Phosphorus 1.90 mg/dL (2.5-4.5) L 12/27/19 06:52 Magnesium 1.80 mg/dL (1.7-2.3) 12/25/19 04:00 Urine Creatinine 32.6 mg/dL (0.1-20.0) H 12/24/19 13:10 Urine Sodium 42 mmol/L 12/24/19 13:10 Medications & Allergies - Medications Allergies/Adverse Reactions: Allergies No Known Allergies Allergy (Verified 12/24/19 03:34) Home Medications: Home Medications Medication Instructions Recorded Confirmed Last Taken Type Acetaminophen [Non-Aspirin Extra 500 mg PO Q8HR PRN 12/24/19 12/24/19 Unknown History Strength] Acetaminophen [Tylenol] 500 mg PO Q8HR PRN 12/24/19 12/24/19 Unknown History Ascorbic Acid [Vitamin C chew] 500 mg PO BID 12/24/19 12/24/19 Unknown History Aspirin [Aspirin BABY CHEW TAB] 81 mg PO QDAY 12/24/19 12/24/19 Unknown History AtorvaSTATin [Lipitor] 40 mg PO QHS 12/24/19 12/24/19 Unknown History Bumetanide [Bumex 1 mg tab] 1 mg PO BID 12/24/19 12/24/19 Unknown History Chlorthalidone [Thalitone] 25 mg PO DAILY 12/24/19 12/24/19 Unknown History Clopidogrel [Plavix] 75 mg PO QDAY 12/24/19 12/24/19 Unknown History Docusate Sodium [Colace] 100 mg PO BID 12/24/19 12/24/19 Unknown History Ferrous Sulfate [Ferrous Sulfate 324 mg PO BID 12/24/19 12/24/19 Unknown History 324 MG] Fluticasone/Vilanterol [Breo 1 each IH DAILY 12/24/19 12/24/19 Unknown History Ellipta 200-25 Mcg INH] HYDROcodone/ACETAMINOPHEN 1 each PO Q12HR 12/24/19 12/24/19 Unknown History [Hydrocodone-Acetamin 5-300 mg] HYDROcodone/ACETAMINOPHEN 1 each PO Q8HR PRN 12/24/19 12/24/19 Unknown History [Hydrocodone-Acetamin 5-300 mg] Insulin Glargine [Lantus VIAL] 10 unit SUB-Q QHS 12/24/19 12/24/19 Unknown History Lactobacillus Acidophilus 1 each PO DAILY 12/24/19 12/24/19 Unknown History [Acidophilus] Lisinopril [Zestril TAB] 2.5 mg PO DAILY 12/24/19 12/24/19 Unknown History Mag Hydrox/Aluminum Hyd/Simeth 30 ml PO Q4H PRN 12/24/19 12/24/19 Unknown History [Maalox Advanced Suspension] Multivit-Min/Iron/Folic Acid/K 1 each PO DAILY 12/24/19 12/24/19 Unknown History [Adults Multivitamin Tablet] Protein Supplement [Promod] 30 ml PO BID 12/24/19 12/24/19 Unknown History QUEtiapine [SEROquel] 25 mg PO BID 12/24/19 12/24/19 Unknown History Sennosides/Docusate Sodium [Senna 1 each PO DAILY 12/24/19 12/24/19 Unknown History Plus 8.6-50 mg Tablet] Tamsulosin [Flomax] 0.4 mg PO QDAY 12/24/19 12/24/19 Unknown History carvediloL [Coreg] 3.125 mg PO BID 12/24/19 12/24/19 Unknown History Active Medications: Generic Name Dose Route Start Last Admin Trade Name Freq PRN Reason Stop Dose Admin Acetaminophen 650 mg 12/23/19 23:37 Tylenol PO Q4H PRN Pain MILD(1-3)/Fever >100.5/LUNSFORD Hydrocodone Bitart/Acetaminophen 1 each 12/24/19 16:54 12/27/19 21:26 [place] 5/325 PO 1 each Q12HR PRN Administration Pain, Moderate (4-6) Aspirin 81 mg 12/24/19 18:00 12/27/19 10:19 Baby Aspirin PO 81 mg QDAY DARLINE Administration Atorvastatin Calcium 40 mg 12/24/19 22:00 12/27/19 21:21 Lipitor PO 40 mg QHS DARLINE Administration Docusate Sodium 100 mg 12/24/19 22:00 12/27/19 21:20 Colace PO 100 mg BID DARLINE Administration Ferrous Gluconate 324 mg 12/24/19 22:00 12/27/19 21:21 Fergon PO 324 mg BID DARLINE Administration Cefepime HCl 2 gm in 100 mls @ 200 mls/hr 12/25/19 11:00 12/27/19 21:20 Cefepime/Ns 2 Gm/100 Ml IV 200 mls/hr BID DARLINE Administration Protocol Insulin Glargine 10 units 12/24/19 22:00 12/27/19 21:21 Lantus SUB-Q Not Given QHS DARLINE Magnesium Hydroxide 30 ml 12/23/19 23:37 12/25/19 18:15 Milk Of Magnesia PO 30 ml Q4H PRN Administration Constipation Midodrine 5 mg 12/26/19 14:00 12/27/19 21:21 Proamatine PO 5 mg BID DARLINE Administration Multivitamins 1 each 12/25/19 10:00 12/27/19 10:19 Theragran Tab PO 1 each DAILY DARLINE Administration Ondansetron HCl 4 mg 12/23/19 23:37 Zofran IV Q8H PRN Nausea And Vomiting Quetiapine Fumarate 25 mg 12/24/19 22:00 12/27/19 21:20 Seroquel PO 25 mg BID DARLINE Administration Sodium Chloride 10 ml 12/24/19 10:00 12/27/19 21:22 Sodium Chloride Flush Syringe 10 Ml IV 10 ml BID DARLINE Administration Sodium Chloride 10 ml 12/23/19 23:37 Sodium Chloride Flush Syringe 10 Ml IV PRN PRN LINE FLUSH Tamsulosin HCl 0.4 mg 12/24/19 18:00 12/27/19 10:19 Flomax PO 0.4 mg QDAY DARLINE Administration Valacyclovir HCl 1,000 mg 12/25/19 14:00 12/27/19 21:21 Valtrex PO 01/01/20 08:01 1,000 mg TID DARLINE Administration
[2019-12-28] MEDS: CEFEPIME/NS 2 GM/100 ML 2 GM/100 ML BAG IV SCH ×2 (22:09→23:13)
[2019-12-28] MEDS: HYDROcodone/ACETAMINOPHEN 5-325 MG TAB PO PRN (22:10)
[2019-12-28] MEDS: FERROUS GLUCONATE 324 MG TAB PO SCH (22:11)
[2019-12-28] MEDS: QUEtiapine 25 MG TAB PO SCH (22:11)
[2019-12-28] MEDS: valACYclovir 500 MG TAB PO SCH ×2 (22:11→22:50)
[2019-12-28] MEDS: DOCUSATE SODIUM 100 MG CAP PO SCH (22:12)
[2019-12-28] MEDS: MIDODRINE 5 MG TAB PO SCH (22:12)
--- NOTE | 2019-12-28 22:50 | Progress Note ---
Assessment and Plan Assessment and plan: 64-year-old male resident of local SNF with known history of hypertension and CHF was brought into the emergency room today for evaluation of abnormal labs. He was found to have elevated creatinine without any known history of kidney disease. Upon arrival in the emergency room he was found to be hypotensive and was given some IV fluid. Work-up in the emergency room today reveals hemoglobin of 7.7, lactic acidosis, elevated troponin and elevated creatinine of 2.9. Urinalysis was significant for a urinary tract infection and CT scan of the head was unremarkable. Patient has been admitted for sepsis, anemia UTI. Patient at present is more alert able to talk. Has behavioral problems. This is old secondary to review of patient's home medications and we have several antipsychotic medications. As well as mood stabilizing agents. Patient is doing well today able to speak with you full sentences. Somewhat confused but alert to where he is and to himself. Hospital course at this time complicated by anemia which requires transfusion. Patient also remains on pressors for hypotension. 12/24/2019 patient developed herpes lesion around penis painful, hypokalemia and transfuse 1 unit packed red blood cells which he tolerated well. Continue to wean off of pressors will transfer from ICU. 12/25/2019. Patient continues to improve. Able to wean pressors down to 4 mics remains hypertensive however. Patient much more alert. Fever curve decreasing leukocytosis improving. 12/26/2019. Patient continues to improve able to wean off pressor support today no new concerns over night December 27, 2019. Patient off pressor support. Much more alert and occasionally combative. Not requiring restraints. Patient does complain of lower extremity pain in which she is has evidence of ischemia. We will add pain management to his current regime. Sepsis improving leukocytosis improving d ecrease fever curve and clinically patient more alert. 12/27: Continue current management, [facility]. Unsure the chronicity of to ischemic changes but appers that the patient has significant vascular disease. Will obtain vascular eval. Patient is a fdc resident with guardianship and no family. Had been evaluated at [facility] and was placed under guardianship he is originally from [place]. Patient also has multiple ulcerations of the penile head sacral area. (1) Sepsis with encephalopathy and septic shock Current Visit: Yes Status: Acute Plan to address problem: Significant improvement no longer encephalopathic alert and oriented . Patient has poor cognition whether this is secondary to dementia. Patient is back at baseline much more alert. No longer encephalopathic. Sepsis has improved.. Currently afebrile. Clinically much improved. (2) Anemia Current Visit: Yes Status: Acute Qualifiers: Anemia type: unspecified type Qualified Code(s): D64.9 - Anemia, unspecified Plan to address problem: At present most likely chronic however patient's hematocrit decreased from 7 to below 6. This is associated with hypotension and tachycardia will benefit from correction even though it may be chronic. Transfuse 1 unit packed red blood cells. Patient is stable after transfusion of 1 unit packed red blood cells. Patient tolerated transfusion 1 unit packed red blood cells H&H stable today. (3) acute kidney injury secondary to vasomotor nephropathy. Now resolved (4) Hypotension Current Visit: Yes Status: Acute Qualifiers: Hypotension type: unspecified hypotension type Qualified Code(s): I95.9 - Hypotension, unspecified Plan to address problem: Secondary to sepsis present on admission. Patient off pressor support. Blood pressure remains low 97/60 but stable no need to add pressor support again at this time. (5) UTI (urinary tract infection) Current Visit: Yes Status: Acute Qualifiers: Urinary tract infection type: acute cystitis Hematuria presence: with hematuria Qualified Code(s): N30.01 - Acute cystitis with hematuria Plan to address problem: Sepsis with UTI. Continue present treatment with cefepime will continue to complete 7 days. Clinically patient much better today. Increase urinary output. Dehydration improving. Continue supportive care IV antibiotics as were doing. Anticipate discharge 1 to 2 days. (6) Herpes genitalis in men Current Visit: Yes Status: Acute Plan to address problem: Treated with Valtrex 3 times daily. 7 days. (7) Peripheral vascular disease of extremity with claudication Current Visit: Yes Status: Acute Plan to address problem: PVD secondary to claudication decrease vascular pulses. Patient has pain at present not a candidate for any invasive testing and does not require amputation. Patient does have some ischemic digits. (8) Discharge planning issues Current Visit: Yes Status: Acute Plan to address problem: We will obtain Covid test in anticipation to discharge back to nursing facility. (9) Dementia with behavioral disturbance Current Visit: Yes Status: Acute Plan to address problem: Patient most likely require some antipsychotic medications. To stabilize mood. (10)Full code status Current Visit: Yes Status: Acute Plan to address problem: Could not address this with patient. Did evaluate patient's fdc. Did see noted from nurse had the charge of power of senior attorney due to [facility]'s office. This is since been outdated. We will phone him to Dr. Dolly moses for transfusion of blood products. At some point patient would also need to be reevaluated for his CODE STATUS. At this particular time lacks adequate cognition. History Interval history: Patient seen and examined, no acute distress. No clinical change Hospitalist Physical - Physical exam Narrative exam: General appearance: Present: no acute distress, well-nourished - EENT Eyes: PERRL, EOM intact ENT: hearing intact, clear oral mucosa Ears: bilateral: normal - Neck Neck: supple, normal ROM - Respiratory Respiratory effort: normal Respiratory: bilateral: CTA - Breasts Breasts: normal - Cardiovascular Rhythm: regular Heart Sounds: Present: S1 & S2. Absent: gallop, rub Extremities: pulses intact, No edema, Full ROM Extremity abnormal: other (Patient Left toes with ischemic changes. noted toe amputation right foot. Decreased pulses. Ischemic digits. No gangrene.) - Gastrointestinal General gastrointestinal: Present: soft, non-tender, non-distended, normal bowel sounds - Genitourinary Male genitourinary: normal - Integumentary Integumentary: clear, warm, dry - Musculoskeletal Musculoskeletal: 1, strength equal bilaterally - Neurologic Neurologic: moves all extremities - Psychiatric Psychiatric: other (Poor cognition cooperative can be combative a conversation. Poor judgment ) - Constitutional Vitals: Temp Pulse Resp BP Pulse Ox 98.2 F 103 H 18 94/58 88 12/28/19 17:47 12/28/19 20:08 12/28/19 17:47 12/28/19 17:47 12/28/19 17:47 General appearance: Present: no acute distress, well-nourished HEART Score - HEART Score Troponin: Troponin T 0.283 ng/mL (0.00-0.029) H* 12/23/19 20:18 Results - Labs CBC & Chem 7: 12/27/19 06:52 12/27/19 06:52 Labs: Laboratory Last Values WBC 14.0 K/mm3 (4.5-11.0) H 12/27/19 06:52 RBC 2.43 M/mm3 (3.65-5.03) L 12/27/19 06:52 Hgb 7.3 gm/dl (11.8-15.2) L 12/27/19 06:52 Hct 21.4 % (35.5-45.6) L 12/27/19 06:52 MCV 88 fl (84-94) 12/27/19 06:52 MCH 30 pg (28-32) 12/27/19 06:52 MCHC 34 % (32-34) 12/27/19 06:52 RDW 18.8 % (13.2-15.2) H 12/27/19 06:52 Plt Count 161 K/mm3 (140-440) 12/27/19 06:52 Lymph % (Auto) 10.8 % (13.4-35.0) L 12/27/19 06:52 [place] % (Auto) 8.8 % (0.0-7.3) H 12/27/19 06:52 Eos % (Auto) 0.1 % (0.0-4.3) 12/27/19 06:52 Baso % (Auto) 0.3 % (0.0-1.8) 12/27/19 06:52 Lymph # (Auto) 1.5 K/mm3 (1.2-5.4) 12/27/19 06:52 [place] # (Auto) 1.2 K/mm3 (0.0-0.8) H 12/27/19 06:52 Eos # (Auto) 0.0 K/mm3 (0.0-0.4) 12/27/19 06:52 Baso # (Auto) 0.0 K/mm3 (0.0-0.1) 12/27/19 06:52 Add Manual Diff Complete 12/24/19 04:40 Total Counted 100 12/24/19 04:40 Seg Neutrophils % 80.0 % (40.0-70.0) H 12/27/19 06:52 Seg Neuts % (Manual) 98.0 % (40.0-70.0) H 12/24/19 04:40 Band Neutrophils % 1.0 % 12/24/19 04:40 Lymphocytes % (Manual) 1.0 % (13.4-35.0) L 12/24/19 04:40 Reactive Lymphs % (Man) 0 % 12/24/19 04:40 Monocytes % (Manual) 0 % (0.0-7.3) 12/24/19 04:40 Eosinophils % (Manual) 0 % (0.0-4.3) 12/24/19 04:40 Basophils % (Manual) 0 % (0.0-1.8) 12/24/19 04:40 Metamyelocytes % 0 % 12/24/19 04:40 Myelocytes % 0 % 12/24/19 04:40 Promyelocytes % 0 % 12/24/19 04:40 Blast Cells % 0 % 12/24/19 04:40 Nucleated RBC % Not Reportable 12/24/19 04:40 Seg Neutrophils # 11.2 K/mm3 (1.8-7.7) H 12/27/19 06:52 Seg Neutrophils # Man 13.3 K/mm3 (1.8-7.7) H 12/24/19 04:40 Band Neutrophils # 0.1 K/mm3 12/24/19 04:40 Lymphocytes # (Manual) 0.1 K/mm3 (1.2-5.4) L 12/24/19 04:40 Abs React Lymphs (Man) 0.0 K/mm3 12/24/19 04:40 Monocytes # (Manual) 0.0 K/mm3 (0.0-0.8) 12/24/19 04:40 Eosinophils # (Manual) 0.0 K/mm3 (0.0-0.4) 12/24/19 04:40 Basophils # (Manual) 0.0 K/mm3 (0.0-0.1) 12/24/19 04:40 Metamyelocytes # 0.0 K/mm3 12/24/19 04:40 Myelocytes # 0.0 K/mm3 12/24/19 04:40 Promyelocytes # 0.0 K/mm3 12/24/19 04:40 Blast Cells # 0.0 K/mm3 12/24/19 04:40 WBC Morphology Not Reportable 12/24/19 04:40 Hypersegmented Neuts Not Reportable 12/24/19 04:40 Hyposegmented Neuts Not Reportable 12/24/19 04:40 Hypogranular Neuts Not Reportable 12/24/19 04:40 Smudge Cells Not Reportable 12/24/19 04:40 Toxic Granulation Not Reportable 12/24/19 04:40 Toxic Vacuolation Not Reportable 12/24/19 04:40 Dohle Bodies Not Reportable 12/24/19 04:40 Pelger-Huet Anomaly Not Reportable 12/24/19 04:40 Nahomy Rods Not Reportable 12/24/19 04:40 Platelet Estimate Consistent w auto 12/24/19 04:40 Clumped Platelets Not Reportable 12/24/19 04:40 Plt Clumps, EDTA Not Reportable 12/24/19 04:40 Large Platelets Not Reportable 12/24/19 04:40 Giant Platelets Not Reportable 12/24/19 04:40 Platelet Satelliting Not Reportable 12/24/19 04:40 Plt Morphology Comment Not Reportable 12/24/19 04:40 RBC Morphology Not Reportable 12/24/19 04:40 Dimorphic RBCs Not Reportable 12/24/19 04:40 Polychromasia Not Reportable 12/24/19 04:40 Hypochromasia Not Reportable 12/24/19 04:40 Poikilocytosis Not Reportable 12/24/19 04:40 Anisocytosis 1+ 12/24/19 04:40 Microcytosis Not Reportable 12/24/19 04:40 Macrocytosis Not Reportable 12/24/19 04:40 Spherocytes Not Reportable 12/24/19 04:40 Pappenheimer Bodies Not Reportable 12/24/19 04:40 Sickle Cells Not Reportable 12/24/19 04:40 Target Cells Not Reportable 12/24/19 04:40 Tear Drop Cells Not Reportable 12/24/19 04:40 Ovalocytes Not Reportable 12/24/19 04:40 Helmet Cells Not Reportable 12/24/19 04:40 [place] Bodies Not Reportable 12/24/19 04:40 [place] Rings Not Reportable 12/24/19 04:40 [place] Cells Not Reportable 12/24/19 04:40 Bite Cells Not Reportable 12/24/19 04:40 Crenated Cell Not Reportable 12/24/19 04:40 Elliptocytes Not Reportable 12/24/19 04:40 Acanthocytes (Spur) Not Reportable 12/24/19 04:40 Rouleaux Not Reportable 12/24/19 04:40 Hemoglobin C Crystals Not Reportable 12/24/19 04:40 Schistocytes Not Reportable 12/24/19 04:40 Malaria parasites Not Reportable 12/24/19 04:40 Danilo Bodies Not Reportable 12/24/19 04:40 Hem Pathologist Commnt No 12/24/19 04:40 PT 14.4 Sec. (12.2-14.9) 12/24/19 04:40 INR 1.11 (0.87-1.13) 12/24/19 04:40 Sodium 140 mmol/L (137-145) 12/27/19 06:52 Potassium 3.2 mmol/L (3.6-5.0) L 12/27/19 06:52 Chloride 108.0 mmol/L (98-107) H 12/27/19 06:52 Carbon Dioxide 20 mmol/L (22-30) L 12/27/19 06:52 Anion Gap 15 mmol/L 12/27/19 06:52 BUN 29 mg/dL (9-20) H 12/27/19 06:52 Creatinine 0.8 mg/dL (0.8-1.3) 12/27/19 06:52 Estimated GFR > 60 ml/min 12/27/19 06:52 BUN/Creatinine Ratio 36 % 12/27/19 06:52 Glucose 66 mg/dL (75-100) L 12/27/19 06:52 POC Glucose 110 mg/dL (70-105) H 12/28/19 18:03 Lactic Acid 3.30 mmol/L (0.7-2.0) H* 12/23/19 23:01 Calcium 8.2 mg/dL (8.4-10.2) L 12/27/19 06:52 Phosphorus 1.90 mg/dL (2.5-4.5) L 12/27/19 06:52 Magnesium 1.80 mg/dL (1.7-2.3) 12/25/19 04:00 Total Bilirubin 0.20 mg/dL (0.1-1.2) 12/23/19 20:18 AST 28 units/L (5-40) 12/23/19 20:18 ALT 11 units/L (7-56) 12/23/19 20:18 Alkaline Phosphatase 82 units/L (35-129) 12/23/19 20:18 Total Creatine Kinase 382 units/L (55-170) H 12/23/19 20: Troponin T 0.283 ng/mL (0.00-0.029) H* 12/23/19 20:18 Total Protein 6.2 g/dL (6.3-8.2) L 12/23/19 20: Albumin 3.5 g/dL (3.9-5) L 12/23/19: Albumin/Globulin Ratio 1.3 % 12/23/19 20: Triglycerides 109 mg/dL (2-149) 12/23/19 20: Cholesterol 138 mg/dL (50-199) 12/23/19: LDL Cholesterol Direct 90 mg/dL (50-130) 12/23/19 20: HDL Cholesterol 38 mg/dL (40-59) L 12/23/19 20: Cholesterol/HDL Ratio 3.63 % 12/23/19: Urine Color Yellow (Yellow) 12/23/19: Urine Turbidity Cloudy (Clear) 12/23/19: Urine pH 7.0 (5.0-7.0) 12/23/19: Ur Specific [place] 1.013 (1.003-1.030) 12/23/19: Urine Protein 30 mg/dl mg/dL (Negative) 12/23/19: Urine Glucose (UA) Neg mg/dL (Negative) 12/23/19: Urine Ketones Neg mg/dL (Negative) 12/23/19: Urine Blood Mod (Negative) 12/23/19: Urine Nitrite Neg (Negative) 12/23/19: Urine Bilirubin Neg (Negative) 12/23/19: Urine Urobilinogen < 2.0 mg/dL (<2.0) 12/23/19: Ur Leukocyte Esterase Lg (Negative) 12/23/19: Urine WBC (Auto) 74.0 /HPF (0.0-6.0) H 12/23/19: Urine RBC (Auto) 9.0 /HPF (0.0-6.0) 12/23/19: U Epithel Cells (Auto) 1.0 /HPF (0-13.0) 12/23/19 21:27 Urine Bacteria (Auto) 1+ /HPF (Negative) 12/23/19 21:27 Urine Mucus Few /HPF 12/23/19 21:27 Urine Creatinine 32.6 mg/dL (0.1-20.0) H 12/24/19 13:10 Urine Sodium 42 mmol/L 12/24/19 13:10 Nasal Screen MRSA (PCR) Negative (Negative) 12/24/19 Unknown Blood Type O POSITIVE 12/24/19 06:05 Antibody Screen Negative 12/24/19 06:05 Crossmatch See Detail 12/24/19 06:05 Microbiology: Microbiology 12/23/19 20:18 Peripheral/Venous Blood Culture - Preliminary NO GROWTH AFTER 4 DAYS 12/23/19 20:18 Peripheral/Venous Blood Culture - Preliminary NO GROWTH AFTER 4 DAYS Matthews/IV: Voiding Method Indwelling Catheter IV Catheter Type [Left Femoral Triple Lumen Cath ] IV Catheter Type [Right Peripheral IV Forearm] Active Medications - Current Medications Current Medications: Generic Name Dose Route Start Last Admin Trade Name Freq PRN Reason Stop Dose Admin Acetaminophen 650 mg 12/23/19 23:37 Tylenol PO Q4H PRN Pain MILD(1-3)/Fever >100.5/LUNSFORD Hydrocodone Bitart/Acetaminophen 1 each 12/24/19 16:54 12/28/19 22:10 [place] 5/325 PO 1 each Q12HR PRN Administration Pain, Moderate (4-6) Aspirin 81 mg 12/24/19 18:00 12/27/19 10:19 Baby Aspirin PO 81 mg QDAY DARLINE Administration Atorvastatin Calcium 40 mg 12/24/19 22:00 12/28/19 22:11 Lipitor PO 40 mg QHS DARLINE Administration Docusate Sodium 100 mg 12/24/19 22:00 12/28/19 22:12 Colace PO 100 mg BID DARLINE Administration Ferrous Gluconate 324 mg 12/24/19 22:00 12/28/19 22:11 Fergon PO 324 mg BID DARLINE Administration Cefepime HCl 2 gm in 100 mls @ 200 mls/hr 12/25/19 11:00 12/28/19 22:09 Cefepime/Ns 2 Gm/100 Ml IV 200 mls/hr BID DARLINE Administration Protocol Insulin Glargine 10 units 12/24/19 22:00 12/27/19 21:21 Lantus SUB-Q Not Given QHS DARLINE Magnesium Hydroxide 30 ml 12/23/19 23:37 12/25/19 18:15 Milk Of Magnesia PO 30 ml Q4H PRN Administration Constipation Midodrine 5 mg 12/26/19 14:00 12/28/19 22:12 Proamatine PO 5 mg BID DARLINE Administration Multivitamins 1 each 12/25/19 10:00 12/27/19 10:19 Theragran Tab PO 1 each DAILY DARLINE Administration Ondansetron HCl 4 mg 12/23/19 23:37 Zofran IV Q8H PRN Nausea And Vomiting Quetiapine Fumarate 25 mg 12/24/19 22:00 12/28/19 22:11 Seroquel PO 25 mg BID DARLINE Administration Sodium Chloride 10 ml 12/24/19 10:00 12/28/19 22:12 Sodium Chloride Flush Syringe 10 Ml IV 10 ml BID DARLINE Administration Sodium Chloride 10 ml 12/23/19 23:37 Sodium Chloride Flush Syringe 10 Ml IV PRN PRN LINE FLUSH Tamsulosin HCl 0.4 mg 12/24/19 18:00 12/27/19 10:19 Flomax PO 0.4 mg QDAY DARLINE Administration Valacyclovir HCl 1,000 mg 12/25/19 14:00 12/28/19 22:11 Valtrex PO 01/01/20 08:01 1,000 mg TID DARLINE Administration Nutrition/Malnutrition Assess - Dietary Evaluation Nutrition/Malnutrition Findings: Nutrition Notes Start: 12/24/19 12:00 Freq: Status: Active Protocol: Document 12/25/19 12:31 (Rec: 12/25/19 12:41 [id number]) Nutrition Notes Initial or Follow up Reassessment Current Diagnosis Acute Kidney Injury,Decubitus( Pressure Ulcer),Sepsis, Hypertension,Heart Failure Other Pertinent Diagnosis AMS, Hypotension, SOB, UTI Current Diet Cardiac Labs/Tests K 3 BUN 68 Phos 2.3 Pertinent Medications Levophed MVI NS at 125 ml/hr Height 6 ft Weight 60.5 kg [place] Body Weight (kg) 80.90 BMI 18.1 Weight Status Underweight Subjective/Other Information FU for intakes and NFPE. Per RN, pt ate 30% of breakfast and very little of his ONS. Percent of energy/protein needs met: 31%/34% Burn Absent Trauma Absent GI Symptoms None Difficulty In Chewing Current % PO Poor (25-49%) Minimum of two criteria Yes Body Fat Depletion Mild depletion (non-severe) Muscle Mass Mild Depletion (non-severe) #3 Nutrition Diagnosis Malnutrition Etiology Chronic disease As Evidenced by Signs and Symptoms muscle and fat wasting #2 Nutrition Diagnosis Increased nutrient needs ( specify in comment below) Comments: protein Diagnosis Progress(for reassessment Continues documentation) #1 Nutrition Diagnosis Inadequate oral intake As Evidenced by Signs and Symptoms pt ate 30% of breakfast Diagnosis Progress(for reassessment Continues documentation) Is patient on ventilator? No Is Patient Ambulatory and/or Out of Bed No [facility] 1730.928 Kcal/Kg value to use for calculation 35 Approximate Energy Requirements Using 2118 kcal/Kg Calculation Used for Recommendations Kcal/kg Additional Notes Pro: 75-90 g/day (1.25-1.5 g/ kg) Fluid: 8855-5705 ml/day Nutrition Intervention Change Diet Order: Continue Add Supplement/Snack (indicate name/kcal Ensure Enlive BID /protein ) Provides kCal: 700 Provides Protein (gm) 40 Goal #1 Meet 75% of total energy and protein needs Goal #2 Wound healing Goal #3 Weight gain/maintance Anticipated Discharge Needs: Cardiac Diet, ONS PRN Follow-Up By: 12/28/19 Additional Comments FU for intakes
[2019-12-28] MEDS: INSULIN GLARGINE 100 UNITS/ML SUB-Q SCH (23:11)
[2019-12-29] MEDS: FERROUS GLUCONATE 324 MG TAB PO SCH ×3 (00:27→21:40)
[2019-12-29] MEDS: ASPIRIN 81 MG TAB CHEW PO SCH ×2 (00:27→10:37)
[2019-12-29] MEDS: DOCUSATE SODIUM 100 MG CAP PO SCH ×3 (00:27→21:40)
[2019-12-29] MEDS: TAMSULOSIN 0.4 MG CAP PO SCH ×2 (00:28→10:37)
[2019-12-29] MEDS: QUEtiapine 25 MG TAB PO SCH ×3 (00:28→21:41)
[2019-12-29] MEDS: MIDODRINE 5 MG TAB PO SCH ×3 (00:28→21:41)
[2019-12-29] MEDS: MULTIVITAMINS ,THERAPEUTIC TAB PO SCH ×2 (00:28→10:37)
[2019-12-29] MEDS: valACYclovir 500 MG TAB PO SCH ×4 (00:29→21:40)
[2019-12-29 08:47] LABS: BUN/Creatinine Ratio 18; Blood Urea Nitrogen 14 mg/dL (9-20); Calcium 7.8 mg/dL (8.4-10.2); Hemolysis Index 1
--- NOTE | 2019-12-29 08:53 | Discharge Summary ---
Providers - Providers Date of Admission: 12/23/19 22:55 Attending physician: HORTENCIA ALCALA MD 12/24/19 06:16 Consult to Physician [CONS] Routine Comment: Consulting Provider: SILVINA JARAMILLO Physician Instructions: Reason For Exam: Renal failure 12/24/19 19:10 Consult to Wound/ET Nurse [CONS] Stat Reason For Exam: wound eval- multiple left toes, right foot amputee 12/29/19 08:46 Consult to Physician [CONS] Routine Comment: Consulting Provider: ANIYAH VALDES Physician Instructions: Reason For Exam: right foot ischemic toes Primary care physician: SPECIAL SERVICE OFFICER Hospitalization Reason for admission: Abnormal labs Condition: Stable Hospital course: 64-year-old male resident of local SNF with known history of hypertension and CHF was brought into the emergency room today for evaluation of abnormal labs. He was found to have elevated creatinine without any known history of kidney disease. Upon arrival in the emergency room he was found to be hypotensive and was given some IV fluid. Work-up in the emergency room today reveals hemoglobin of 7.7, lactic acidosis, elevated troponin and elevated creatinine of 2.9. Urinalysis was significant for a urinary tract infection and CT scan of the head was unremarkable. Patient has been admitted for sepsis, anemia UTI. Patient at present is more alert able to talk. Has behavioral problems. This is old secondary to review of patient's home medications and we have several antipsychotic medications. As well as mood stabilizing agents. Patient is doing well today able to speak with you full sentences. Somewhat confused but alert to where he is and to himself. Hospital course at this time complicated by anemia which requires transfusion. Patient also remains on pressors for hypotension. 12/24/2019 patient developed herpes lesion around penis painful, hypokalemia and transfuse 1 unit packed red blood cells which he tolerated well. Continue to wean off of pressors will transfer from ICU. 12/25/2019. Patient continues to improve. Able to wean pressors down to 4 mics remains hypertensive however. Patient much more alert. Fever curve decreasing leukocytosis improving. 12/26/2019. Patient continues to improve able to wean off pressor support today no new concerns over night December 27, 2019. Patient off pressor support. Much more alert and occasionally combative. Not requiring restraints. Patient does complain of lower extremity pain in which she is has evidence of ischemia. We will add pain management to his current regime. Sepsis improving leukocytosis improving decrease fever curve and clinically patient more alert. 12/27: Continue current management, patient will likely need return to the [facility]. Unsure the chronicity of to ischemic changes but appers that the patient has significant vascular disease. Will obtain vascular eval. Patient is a [facility] resident with guardianship and no family. Had been evaluated at [place] and was placed under guardianship he is originally from [place]. Patient also has multiple ulcerations of the penile head sacral area. 12/28: Clinically improved, Will need continued ongoing Vascular eval outpatient for the ischemi noted in the left lower extremity. Per the patient this has been ongoing for a few weeks. Further evaluation of her medication shows that the patient is on aspirin and Plavix this could indicate that the chronicity of the lower extremity ischemic changes is much older and prior evaluations may have been done unfortunately I do not have the record considering his anemia I believe it would be prudent to discontinue aspirin and continue only Plavix at this time but will defer to vascular evaluation and possible recurrent evaluation. If in future he continues to need transfusion he will benefit from seeing GI and making those recommended changes on the aspirin and Plavix. 12/29: Patient evaluated by vascular recommended outpatient work-up ultrasound of the lower extremity has been done and will follow outpatient. (1) Sepsis with encephalopathy and septic shock Current Visit: Yes Status: Acute Plan to address problem: Significant improvement no longer encephalopathic alert and oriented . Patient has poor cognition whether this is secondary to dementia. Patient is back at baseline much more alert. No longer encephalopathic. Sepsis has improved.. Currently afebrile. Clinically much improved. (2) Anemia Current Visit: Yes Status: Acute Qualifiers: Anemia type: unspecified type Qualified Code(s): D64.9 - Anemia, unspecified Plan to address problem: At present most likely chronic however patient's hematocrit decreased from 7 to below 6. This is associated with hypotension and tachycardia will benefit from correction even though it may be chronic. Transfuse 1 unit packed red blood cells. Patient is stable after transfusion of 1 unit packed red blood cells. Patient tolerated transfusion 1 unit packed red blood cells H&H stable today. (3) Acute kidney injury secondary to vasomotor nephropathy. Now resolved (4) Hypotension Current Visit: Yes Status: Acute Qualifiers: Hypotension type: unspecified hypotension type Qualified Code(s): I95.9 - Hypotension, unspecified Plan to address problem: Secondary to sepsis present on admission. Patient off pressor support. Blood pressure remains low 97/60 but stable no need to add pressor support again at this time. (5) UTI (urinary tract infection) Current Visit: Yes Status: Acute Qualifiers: Urinary tract infection type: acute cystitis Hematuria presence: with hematuria Qualified Code(s): N30.01 - Acute cystitis with hematuria Plan to address problem: Sepsis with UTI. Continue present treatment with cefepime will continue to complete 7 days. Clinically patient much better today. Increase urinary output. Dehydration improving. Continue supportive care IV antibiotics as were doing. Anticipate discharge 1 to 2 days. (6) Herpes genitalis in men Current Visit: Yes Status: Acute Plan to address problem: Treated with Valtrex 3 times daily. 7 days. (7) Peripheral vascular disease of extremity with claudication Current Visit: Yes Status: Acute Plan to address problem: PVD secondary to claudication decrease vascular pulses. Patient has pain at present not a candidate for any invasive testing and does not require amputation. Patient does have some ischemic digits. (8) Discharge planning issues Current Visit: Yes Status: Acute Plan to address problem: We will obtain Covid test in anticipation to discharge back to nursing facility. (9) Dementia with behavioral disturbance Current Visit: Yes Status: Acute Plan to address problem: Patient most likely require some antipsychotic medications. To stabilize mood. (10)Full code status Current Visit: Yes Status: Acute Plan to address problem: Could not address this with patient. Did evaluate patient's [facility]. Did see noted from nurse had the charge of power of banking attorney due to [facility]'s office. This is since been outdated. We will phone him to Dr. Jewell for transfusion of blood products. At some point patient would also need to be reevaluated for his CODE STATUS. At this particular time lacks adequate cognition. Disposition: DC/[place]-[facility] SNF [facility] C[facility] Time spent for discharge: 35-minute Core Measure Documentation - Palliative Care Palliative Care/ Comfort Measures: Not Applicable - Core Measures Any of the following diagnoses?: none Exam - Physical Exam Narrative exam: General appearance: Present: no acute distress, well-nourished - EENT Eyes: PERRL, EOM intact ENT: hearing intact, clear oral mucosa Ears: bilateral: normal - Neck Neck: supple, normal ROM - Respiratory Respiratory effort: normal Respiratory: bilateral: CTA - Breasts Breasts: normal - Cardiovascular Rhythm: regular Heart Sounds: Present: S1 & S2. Absent: gallop, rub Extremities: pulses intact, No edema, Full ROM Extremity abnormal: other (Patient Left toes with ischemic changes. noted toe amputation right foot. Decreased pulses. Ischemic digits. No gangrene.) - Gastrointestinal General gastrointestinal: Present: soft, non-tender, non-distended, normal bowel sounds - Genitourinary Male genitourinary: normal - Integumentary Integumentary: clear, warm, dry - Musculoskeletal Musculoskeletal: 1, strength equal bilaterally - Neurologic Neurologic: moves all extremities - Psychiatric Psychiatric: other (Poor cognition cooperative can be combative a conversation. Poor judgment ) - Constitutional Vitals: Temp Pulse Resp BP Pulse Ox 98.4 F 101 H 16 93/48 91 12/29/19 03:59 12/29/19 06:00 12/29/19 03:59 12/29/19 03:59 12/29/19 03:59 Plan Activity: advance as tolerated, fall precautions Diet: low fat Special Instructions: record daily weights, record daily BP diary Follow up with: PRIMARY CAREMD [Primary Care Provider] - 3-5 Days ANIYAH VALDES MD [Staff Physician] - 7 Days Prescriptions: Midodrine [Proamatine] 5 mg PO TID #90 tablet
[2019-12-29] MEDS: CEFEPIME/NS 2 GM/100 ML 2 GM/100 ML BAG IV SCH ×4 (10:36→21:41)
[2019-12-29] MEDS ORDERED: PHOS-NAK POWDER PACKET PO NR (11:01)
--- NOTE | 2019-12-29 11:01 | Progress Note ---
Assessment and Plan 1. Acute kidney injury: Vasomotor nephropathy in the setting of hypotension / shock. Renal US negative for hydro. Monitor renal function. Creatinine level is better. Avoid nephrotoxic agents. Meds dosage based on GFR. 2. FEN: Hyponatremia, 2/2 volume depletion, improved, monitor. Anion-gap metabolic acidosis, monitor. Replete lytes as needed. Monitor lytes. 3. Sepsis with shock: Likely from UTI. Continue abx. Follow cultures. Was on Levophed. On Midodrine. Monitor blood pressure closely. 4. Metabolic encephalopathy, POA. 5. Elevated Troponin. 6. H/o hypertension. 7. Normochromic anemia, POA: S/p PRBC 12/23. Subjective: Patient was seen and examined at the bedside. Doing ok. - General Appearance General appearance: well-developed, well-nourished, appears stated age, no distress HEENT: ATNC, DARRICK, hearing intact, vision intact Neck: Trachea midline Respiratory: ctab Cardiology: regular, S1S2, no murmur Gastrointestinal: normoactive bowel sounds, no tenderness, not distended Integumentary: UE bruises, multiple ulcers over the toes Neurologic: able to move extremities, able to tell his name, appears confused Ext: no edema noted, amputation of R lateral 4 toes Subjective Date of service: 12/29/19 Principal diagnosis: Sepsis septic shock Objective - Vital Signs Vital signs: Vital Signs - 12hr 12/29/19 12/29/19 12/29/19 02:00 03:59 06:00 Temperature 98.4 F Pulse Rate 99 H 101 H 101 H Respiratory 16 Rate Blood Pressure 93/48 O2 Sat by Pulse 91 Oximetry 12/29/19 10:39 Temperature 97.6 F Pulse Rate 101 H Respiratory 16 Rate Blood Pressure 91/58 O2 Sat by Pulse 95 Oximetry - Lab 12/27/19 06:52 12/29/19 07:15 Most recent lab results Calcium 7.8 mg/dL (8.4-10.2) L 12/29/19 07:15 Phosphorus 1.90 mg/dL (2.5-4.5) L 12/29/19 07:15 Magnesium 1.50 mg/dL (1.7-2.3) L 12/29/19 07:15 Urine Creatinine 32.6 mg/dL (0.1-20.0) H 12/24/19 13:10 Urine Sodium 42 mmol/L 12/24/19 13:10 Medications & Allergies - Medications Allergies/Adverse Reactions: Allergies No Known Allergies Allergy (Verified 12/24/19 03:34) Home Medications: Home Medications Medication Instructions Recorded Confirmed Last Taken Type Acetaminophen [Acetaminophen TAB] 500 mg PO Q8HR PRN 12/24/19 12/24/19 Unknown History Ascorbic Acid [Vitamin C chew] 500 mg PO BID 12/24/19 12/24/19 Unknown History Aspirin [Aspirin BABY CHEW TAB] 81 mg PO QDAY 12/24/19 12/24/19 Unknown History AtorvaSTATin [Lipitor] 40 mg PO QHS 12/24/19 12/24/19 Unknown History Clopidogrel [Plavix] 75 mg PO QDAY 12/24/19 12/24/19 Unknown History Docusate Sodium [Colace CAP] 100 mg PO BID 12/24/19 12/24/19 Unknown History Ferrous Sulfate [Ferrous Sulfate 324 mg PO BID 12/24/19 12/24/19 Unknown History 324 MG] Fluticasone/Vilanterol [Breo 1 each IH DAILY 12/24/19 12/24/19 Unknown History Ellipta 200-25 Mcg INH] HYDROcodone/ACETAMINOPHEN 1 each PO Q12HR 12/24/19 12/24/19 Unknown History [Hydrocodone-Acetamin 5-300 mg] Insulin Glargine [Lantus VIAL] 10 unit SUB-Q QHS 12/24/19 12/24/19 Unknown History Lactobacillus Acidophilus 1 each PO DAILY 12/24/19 12/24/19 Unknown History [Acidophilus] Mag Hydrox/Aluminum Hyd/Simeth 30 ml PO Q4H PRN 12/24/19 12/24/19 Unknown History [Maalox Advanced Suspension] Multivit-Min/Iron/Folic Acid/K 1 each PO DAILY 12/24/19 12/24/19 Unknown History [Adults Multivitamin Tablet] Protein Supplement [Promod] 30 ml PO BID 12/24/19 12/24/19 Unknown History QUEtiapine [SEROquel] 25 mg PO BID 12/24/19 12/24/19 Unknown History Sennosides/Docusate Sodium [Senna 1 each PO DAILY 12/24/19 12/24/19 Unknown History Plus 8.6-50 mg Tablet] Tamsulosin [Flomax] 0.4 mg PO QDAY 12/24/19 12/24/19 Unknown History carvediloL [Coreg] 3.125 mg PO BID 12/24/19 12/24/19 Unknown History Midodrine [Proamatine] 5 mg PO TID #90 tablet 12/29/19 Unknown Rx Active Medications: Generic Name Dose Route Start Last Admin Trade Name Freq PRN Reason Stop Dose Admin Acetaminophen 650 mg 12/23/19 23:37 Tylenol PO Q4H PRN Pain MILD(1-3)/Fever >100.5/LUNSFORD Hydrocodone Bitart/Acetaminophen 1 each 12/24/19 16:54 12/28/19 22:10 [place] 5/325 PO 1 each Q12HR PRN Administration Pain, Moderate (4-6) Aspirin 81 mg 12/24/19 18:00 12/29/19 10:37 Baby Aspirin PO 81 mg QDAY DARLINE Administration Atorvastatin Calcium 40 mg 12/24/19 22:00 12/28/19 22:11 Lipitor PO 40 mg QHS DARLINE Administration Docusate Sodium 100 mg 12/24/19 22:00 12/29/19 10:37 Colace PO 100 mg BID DARLINE Administration Ferrous Gluconate 324 mg 12/24/19 22:00 12/29/19 10:41 Fergon PO 324 mg BID DARLINE Administration Cefepime HCl 2 gm in 100 mls @ 200 mls/hr 12/25/19 11:00 12/29/19 10:44 Cefepime/Ns 2 Gm/100 Ml IV 12/29/19 23:59 Not Given BID [facility] Protocol Insulin Glargine 10 units 12/24/19 22:00 12/28/19 23:11 Lantus SUB-Q 10 units QHS DARLINE Administration Magnesium Hydroxide 30 ml 12/23/19 23:37 12/25/19 18:15 Milk Of Magnesia PO 30 ml Q4H PRN Administration Constipation Midodrine 5 mg 12/26/19 14:00 12/29/19 10:37 Proamatine PO 5 mg BID DARLINE Administration Multivitamins 1 each 12/25/19 10:00 12/29/19 10:37 Theragran Tab PO 1 each DAILY DARLINE Administration Ondansetron HCl 4 mg 12/23/19 23:37 Zofran IV Q8H PRN Nausea And Vomiting Quetiapine Fumarate 25 mg 12/24/19 22:00 12/29/19 10:37 Seroquel PO 25 mg BID DARLINE Administration Sodium Chloride 10 ml 12/24/19 10:00 12/29/19 10:36 Sodium Chloride Flush Syringe 10 Ml IV 10 ml BID DARLINE Administration Sodium Chloride 10 ml 12/23/19 23:37 Sodium Chloride Flush Syringe 10 Ml IV PRN PRN LINE FLUSH Tamsulosin HCl 0.4 mg 12/24/19 18:00 12/29/19 10:37 Flomax PO 0.4 mg QDAY DARLINE Administration Valacyclovir HCl 1,000 mg 12/25/19 14:00 12/29/19 10:36 Valtrex PO 01/01/20 08:01 1,000 mg TID DARLINE Administration
[2019-12-29] MEDS ORDERED: MAGNESIUM OXIDE 400 MG TAB PO NR (11:05)
[2019-12-29] MEDS: HYDROcodone/ACETAMINOPHEN 5-325 MG TAB PO PRN (13:24)
[2019-12-29] MEDS ORDERED: POTASSIUM PHOSPHATE 45 MMOL in SODIUM CHLORIDE 0.9% 500 ML 500 ML IV ONE (17:00)
[2019-12-29] MEDS: INSULIN GLARGINE 100 UNITS/ML SUB-Q SCH (22:00)
[2019-12-30 06:40] LABS: BUN/Creatinine Ratio 18; Blood Urea Nitrogen 14 mg/dL (9-20); Calcium 7.7 mg/dL (8.4-10.2); Hemolysis Index 1
--- NOTE | 2019-12-30 09:44 | Consultation ---
History of Present Illness - Reason for Consult Consult date: 12/30/19 Ischemic toes - History of Present Illness Patient with a history of multiple medical problems who was sent from his [facility] home for abnormal labs. He has right foot with first toe focal area of gangrene and prior surgical removal of toes 2 through 4. On the left foot, the patient has multiple areas of dry gangrene on the distal phalange ease. Nonpalpable pedal pulses. Patient is confused. No complaints of pain. Past History Past Medical History: heart failure, hypertension, PVD Past Surgical History: Other (Prior right second through fifth toe amputation). denies: No surgical history Social history: other (Resides in a Penit[facility]) Medications and Allergies Allergies Allergy/AdvReac Type Severity Reaction Status Date / Time No Known Allergies Allergy Verified 12/24/19 03:34 Home Medications Medication Instructions Recorded Confirmed Last Taken Type Acetaminophen [Acetaminophen TAB] 500 mg PO Q8HR PRN 12/24/19 12/24/19 Unknown History Ascorbic Acid [Vitamin C chew] 500 mg PO BID 12/24/19 12/24/19 Unknown History Aspirin [Aspirin BABY CHEW TAB] 81 mg PO QDAY 12/24/19 12/24/19 Unknown History AtorvaSTATin [Lipitor] 40 mg PO QHS 12/24/19 12/24/19 Unknown History Clopidogrel [Plavix] 75 mg PO QDAY 12/24/19 12/24/19 Unknown History Docusate Sodium [Colace CAP] 100 mg PO BID 12/24/19 12/24/19 Unknown History Ferrous Sulfate [Ferrous Sulfate 324 mg PO BID 12/24/19 12/24/19 Unknown History 324 MG] Fluticasone/Vilanterol [Breo 1 each IH DAILY 12/24/19 12/24/19 Unknown History Ellipta 200-25 Mcg INH] HYDROcodone/ACETAMINOPHEN 1 each PO Q12HR 12/24/19 12/24/19 Unknown History [Hydrocodone-Acetamin 5-300 mg] Insulin Glargine [Lantus VIAL] 10 unit SUB-Q QHS 12/24/19 12/24/19 Unknown Hi story Lactobacillus Acidophilus 1 each PO DAILY 12/24/19 12/24/19 Unknown History [Acidophilus] Mag Hydrox/Aluminum Hyd/Simeth 30 ml PO Q4H PRN 12/24/19 12/24/19 Unknown History [Maalox Advanced Suspension] Multivit-Min/Iron/Folic Acid/K 1 each PO DAILY 12/24/19 12/24/19 Unknown History [Adults Multivitamin Tablet] Protein Supplement [Promod] 30 ml PO BID 12/24/19 12/24/19 Unknown History QUEtiapine [SEROquel] 25 mg PO BID 12/24/19 12/24/19 Unknown History Sennosides/Docusate Sodium [Senna 1 each PO DAILY 12/24/19 12/24/19 Unknown History Plus 8.6-50 mg Tablet] Tamsulosin [Flomax] 0.4 mg PO QDAY 12/24/19 12/24/19 Unknown History carvediloL [Coreg] 3.125 mg PO BID 12/24/19 12/24/19 Unknown History Midodrine [Proamatine] 5 mg PO TID #90 tablet 12/29/19 Unknown Rx Active Meds: Active Medications Acetaminophen (Tylenol) 650 mg PO Q4H PRN PRN Reason: Pain MILD(1-3)/Fever >100.5/LUNSFORD Hydrocodone Bitart/Acetaminophen ([place] 5/325) 1 each PO Q12HR PRN PRN Reason: Pain, Moderate (4-6) Last Admin: 12/29/19 13:24 Dose: 1 each Documented by: Aspirin (Baby Aspirin) 81 mg PO QDAY [facility] Last Admin: 12/29/19 10:37 Dose: 81 mg Documented by: Atorvastatin Calcium (Lipitor) 40 mg PO QHS [facility] Last Admin: 12/29/19 21:41 Dose: 40 mg Documented by: Docusate Sodium (Colace) 100 mg PO BID [facility] Last Admin: 12/29/19 21:40 Dose: 100 mg Documented by: Ferrous Gluconate (Fergon) 324 mg PO BID [facility] Last Admin: 12/29/19 21:40 Dose: 324 mg Documented by: Insulin Glargine (Lantus) 10 units SUB-Q QHS [facility] Last Admin: 12/29/19 22:00 Dose: Not Given Documented by: Magnesium Hydroxide (Milk Of Magnesia) 30 ml PO Q4H PRN PRN Reason: Constipation Last Admin: 12/25/19 18:15 Dose: 30 ml Documented by: Midodrine (Proamatine) 5 mg PO BID [facility] Last Admin: 12/29/19 21:41 Dose: 5 mg Documented by: Multivitamins (Theragran Tab) 1 each PO DAILY [facility] Last Admin: 12/29/19 10:37 Dose: 1 each Documented by: Ondansetron HCl (Zofran) 4 mg IV Q8H PRN PRN Reason: Nausea And Vomiting Quetiapine Fumarate (Seroquel) 25 mg PO BID [facility] Last Admin: 12/29/19 21:41 Dose: 25 mg Documented by: Sodium Chloride (Sodium Chloride Flush Syringe 10 Ml) 10 ml IV BID [facility] Last Admin: 12/29/19 21:41 Dose: 10 ml Documented by: Sodium Chloride (Sodium Chloride Flush Syringe 10 Ml) 10 ml IV PRN PRN PRN Reason: LINE FLUSH Tamsulosin HCl (Flomax) 0.4 mg PO QDAY [facility] Last Admin: 12/29/19 10:37 Dose: 0.4 mg Documented by: Valacyclovir HCl (Valtrex) 1,000 mg PO TID [facility] Stop: 01/01/20 08:01 Last Admin: 12/29/19 21:40 Dose: 1,000 mg Documented by: Review of Systems ROS unobtainable: due to mental status Exam - Constitutional Vitals: Temp Pulse Resp BP Pulse Ox 98.4 F 97 H 18 87/50 97 12/29/19 21:18 12/29/19 21:18 12/29/19 21:18 12/29/19 21:18 12/29/19 21:18 General appearance: Present: no acute distress - EENT Eyes: Present: EOM intact ENT: hearing intact - Neck Neck: Present: supple, normal ROM - Respiratory Respiratory effort: normal - Extremities Extremities: abnormal - Abdominal General gastrointestinal: Present: deferred Male genitourinary: Present: deferred - Rectal Rectal Exam: deferred - Psychiatric Psychiatric: cooperative Results - Labs CBC & Chem 7: 12/27/19 06:52 12/30/19 05:56 Labs: Abnormal lab results 12/29/19 12/30/19 Range/Units 22:23 05:56 POC Glucose 107 H (70-105) mg/dL Calcium 7.7 L (8.4-10.2) mg/dL Magnesium 1.40 L (1.7-2.3) mg/dL Assessment and Plan The patient with peripheral vascular disease with gangrene to toes on both feet. The patient will have a vascular ultrasound ordered today. However, if the patient is otherwise clinically stable, he can be worked up as an outpatient and any interventions necessary performed then.
--- NOTE | 2019-12-30 10:26 | Progress Note ---
Assessment and Plan 1. Acute kidney injury: Vasomotor nephropathy in the setting of hypotension / shock. Renal US negative for hydro. Monitor renal function. Creatinine level is better. Avoid nephrotoxic agents. Meds dosage based on GFR. 2. FEN: Hyponatremia, 2/2 volume depletion, improved, monitor. Anion-gap metabolic acidosis, monitor. Replete lytes as needed. Monitor lytes. 3. Sepsis with shock: Likely from UTI. S/p abx. On Midodrine. Monitor blood pressure closely. 4. Metabolic encephalopathy, POA. 5. Elevated Troponin. 6. H/o hypertension. 7. Normochromic anemia, POA: S/p PRBC 12/23. Subjective: Patient was seen and examined at the bedside. Doing ok. - General Appearance General appearance: well-developed, well-nourished, appears stated age, no distress HEENT: ATNC, DARRICK, hearing intact, vision intact Neck: Trachea midline Respiratory: ctab Cardiology: regular, S1S2, no murmur Gastrointestinal: normoactive bowel sounds, no tenderness, not distended Integumentary: UE bruises, multiple ulcers over the toes Neurologic: able to move extremities, appears confused Ext: no edema noted, amputation of R lateral 4 toes Subjective Principal diagnosis: Sepsis septic shock Objective - Lab 12/27/19 06:52 12/30/19 05:56 Most recent lab results Calcium 7.7 mg/dL (8.4-10.2) L 12/30/19 05:56 Phosphorus 2.70 mg/dL (2.5-4.5) D 12/30/19 05:56 Magnesium 1.40 mg/dL (1.7-2.3) L 12/30/19 05:56 Urine Creatinine 32.6 mg/dL (0.1-20.0) H 12/24/19 13:10 Urine Sodium 42 mmol/L 12/24/19 13:10 Medications & Allergies - Medications Allergies/Adverse Reactions: Allergies No Known Allergies Allergy (Verified 12/24/19 03:34) Home Medications: Home Medications Medication Instructions Recorded Confirmed Last Taken Type Acetaminophen [Acetaminophen TAB] 500 mg PO Q8HR PRN 12/24/19 12/24/19 Unknown History Ascorbic Acid [Vitamin C chew] 500 mg PO BID 12/24/19 12/24/19 Unknown History Aspirin [Aspirin BABY CHEW TAB] 81 mg PO QDAY 12/24/19 12/24/19 Unknown History AtorvaSTATin [Lipitor] 40 mg PO QHS 12/24/19 12/24/19 Unknown History Clopidogrel [Plavix] 75 mg PO QDAY 12/24/19 12/24/19 Unknown History Docusate Sodium [Colace CAP] 100 mg PO BID 12/24/19 12/24/19 Unknown History Ferrous Sulfate [Ferrous Sulfate 324 mg PO BID 12/24/19 12/24/19 Unknown History 324 MG] Fluticasone/Vilanterol [Breo 1 each IH DAILY 12/24/19 12/24/19 Unknown History Ellipta 200-25 Mcg INH] HYDROcodone/ACETAMINOPHEN 1 each PO Q12HR 12/24/19 12/24/19 Unknown History [Hydrocodone-Acetamin 5-300 mg] Insulin Glargine [Lantus VIAL] 10 unit SUB-Q QHS 12/24/19 12/24/19 Unknown History Lactobacillus Acidophilus 1 each PO DAILY 12/24/19 12/24/19 Unknown History [Acidophilus] Mag Hydrox/Aluminum Hyd/Simeth 30 ml PO Q4H PRN 12/24/19 12/24/19 Unknown History [Maalox Advanced Suspension] Multivit-Min/Iron/Folic Acid/K 1 each PO DAILY 12/24/19 12/24/19 Unknown History [Adults Multivitamin Tablet] Protein Supplement [Promod] 30 ml PO BID 12/24/19 12/24/19 Unknown History QUEtiapine [SEROquel] 25 mg PO BID 12/24/19 12/24/19 Unknown History Sennosides/Docusate Sodium [Senna 1 each PO DAILY 12/24/19 12/24/19 Unknown History Plus 8.6-50 mg Tablet] Tamsulosin [Flomax] 0.4 mg PO QDAY 12/24/19 12/24/19 Unknown History carvediloL [Coreg] 3.125 mg PO BID 12/24/19 12/24/19 Unknown History Midodrine [Proamatine] 5 mg PO TID #90 tablet 12/29/19 Unknown Rx Active Medications: Generic Name Dose Route Start Last Admin Trade Name Freq PRN Reason Stop Dose Admin Acetaminophen 650 mg 12/23/19 23:37 Tylenol PO Q4H PRN Pain MILD(1-3)/Fever >100.5/LUNSFORD Hydrocodone Bitart/Acetaminophen 1 each 12/24/19 16:54 12/29/19 13:24 [place] 5/325 PO 1 each Q12HR PRN Administration Pain, Moderate (4-6) Aspirin 81 mg 12/24/19 18:00 12/29/19 10:37 Baby Aspirin PO 81 mg QDAY DARLINE Administration Atorvastatin Calcium 40 mg 12/24/19 22:00 12/29/19 21:41 Lipitor PO 40 mg QHS DARLINE Administration Docusate Sodium 100 mg 12/24/19 22:00 12/29/19 21:40 Colace PO 100 mg BID DARLINE Administration Ferrous Gluconate 324 mg 12/24/19 22:00 12/29/19 21:40 Fergon PO 324 mg BID DARLINE Administration Insulin Glargine 10 units 12/24/19 22:00 12/29/19 22:00 Lantus SUB-Q Not Given QHS DARLINE Magnesium Hydroxide 30 ml 12/23/19 23:37 12/25/19 18:15 Milk Of Magnesia PO 30 ml Q4H PRN Administration Constipation Midodrine 5 mg 12/26/19 14:00 12/29/19 21:41 Proamatine PO 5 mg BID DARLINE Administration Multivitamins 1 each 12/25/19 10:00 12/29/19 10:37 Theragran Tab PO 1 each DAILY DARLINE Administration Ondansetron HCl 4 mg 12/23/19 23:37 Zofran IV Q8H PRN Nausea And Vomiting Quetiapine Fumarate 25 mg 12/24/19 22:00 12/29/19 21:41 Seroquel PO 25 mg BID DARLINE Administration Sodium Chloride 10 ml 12/24/19 10:00 12/29/19 21:41 Sodium Chloride Flush Syringe 10 Ml IV 10 ml BID DARLINE Administration Sodium Chloride 10 ml 12/23/19 23:37 Sodium Chloride Flush Syringe 10 Ml IV PRN PRN LINE FLUSH Tamsulosin HCl 0.4 mg 12/24/19 18:00 12/29/19 10:37 Flomax PO 0.4 mg QDAY DARLINE Administration Valacyclovir HCl 1,000 mg 12/25/19 14:00 12/29/19 21:40 Valtrex PO 01/01/20 08:01 1,000 mg TID DARLINE Administration
[2019-12-30 13:39] VITALS: BP 89/57
--- NOTE | 2019-12-30 14:47 | Progress Note ---
Assessment and Plan Assessment and plan: 64-year-old male resident of local [facility] with known history of hypertension and CHF was brought into the emergency room today for evaluation of abnormal labs. He was found to have elevated creatinine without any known history of kidney disease. Upon arrival in the emergency room he was found to be hypotensive and was given some IV fluid. Work-up in the emergency room today reveals hemoglobin of 7.7, lactic acidosis, elevated troponin and elevated creatinine of 2.9. Urinalysis was significant for a urinary tract infection and CT scan of the head was unremarkable. Patient has been admitted for sepsis, anemia UTI. Patient at present is more alert able to talk. Has behavioral problems. This is old secondary to review of patient's home medications and we have several antipsychotic medications. As well as mood stabilizing agents. Patient is doing well today able to speak with you full sentences. Somewhat confused but alert to where he is and to himself. Hospital course at this time complicated by anemia which requires transfusion. Patient also remains on pressors for hypotension. 12/24/2019 patient developed herpes lesion around penis painful, hypokalemia and transfuse 1 unit packed red blood cells which he tolerated well. Continue to wean off of pressors will transfer from ICU. 12/25/2019. Patient continues to improve. Able to wean pressors down to 4 mics remains hypertensive however. Patient much more alert. Fever curve decreasing leukocytosis improving. 12/26/2019. Patient continues to improve able to wean off pressor support today no new concerns over night December 27, 2019. Patient off pressor support. Much more alert and occasionally combative. Not requiring restraints. Patient does complain of lower extremity pain in which she is has evidence of ischemia. We will add pain management to his current regime. Sepsis improving leukocytosis improving d ecrease fever curve and clinically patient more alert. 12/27: Continue current management, patient will likely need return to the [facility]. Unsure the chronicity of to ischemic changes but appers that the patient has significant vascular disease. Will obtain vascular eval. Patient is a longterm resident with guardianship and no family. Had been evaluated at [facility] and was placed under guardianship he is originally from [place]. Patient also has multiple ulcerations of the penile head sacral area. 12/28: Patient was discharged today but unfortunately did not leave due to unknown reasons to me. Awaiting discharge. (1) Sepsis with encephalopathy and septic shock Current Visit: Yes Status: Acute Plan to address problem: Significant improvement no longer encephalopathic alert and oriented . Patient has poor cognition whether this is secondary to dementia. Patient is back at baseline much more alert. No longer encephalopathic. Sepsis has improved.. Currently afebrile. Clinically much improved. (2) Anemia Current Visit: Yes Status: Acute Qualifiers: Anemia type: unspecified type Qualified Code(s): D64.9 - Anemia, unspecified Plan to address problem: At present most likely chronic however patient's hematocrit decreased from 7 to below 6. This is associated with hypotension and tachycardia will benefit from correction even though it may be chronic. Transfuse 1 unit packed red blood cells. Patient is stable after transfusion of 1 unit packed red blood cells. Patient tolerated transfusion 1 unit packed red blood cells H&H stable today. (3) acute kidney injury secondary to vasomotor nephropathy. Now resolved (4) Hypotension Current Visit: Yes Status: Acute Qualifiers: Hypotension type: unspecified hypotension type Qualified Code(s): I95.9 - Hypotension, unspecified Plan to address problem: Secondary to sepsis present on admission. Patient off pressor support. Blood pressure remains low 97/60 but stable no need to add pressor support again at this time. (5) UTI (urinary tract infection) Current Visit: Yes Status: Acute Qualifiers: Urinary tract infection type: acute cystitis Hematuria presence: with hematuria Qualified Code(s): N30.01 - Acute cystitis with hematuria Plan to address problem: Sepsis with UTI. Continue present treatment with cefepime will continue to complete 7 days. Clinically patient much better today. Increase urinary output. Dehydration improving. Continue supportive care IV antibiotics as were doing. Anticipate discharge 1 to 2 days. (6) Herpes genitalis in men Current Visit: Yes Status: Acute Plan to address problem: Treated with Valtrex 3 times daily. 7 days. (7) Peripheral vascular disease of extremity with claudication Current Visit: Yes Status: Acute Plan to address problem: PVD secondary to claudication decrease vascular pulses. Patient has pain at present not a candidate for any invasive testing and does not require amputation. Patient does have some ischemic digits. (8) Discharge planning issues Current Visit: Yes Status: Acute Plan to address problem: We will obtain Covid test in anticipation to discharge back to nursing facility. (9) Dementia with behavioral disturbance Current Visit: Yes Status: Acute Plan to address problem: Patient most likely require some antipsychotic medications. To stabilize mood. (10)Full code status Current Visit: Yes Status: Acute Plan to address problem: Could not address this with patient. Did evaluate patient's longterm. Did see noted from nurse had the charge of power of corporate attorney due to [facility]'s office. This is since been outdated. We will phone him to Dr. Jewell for transfusion of blood products. At some point patient would also stephen craig to be reevaluated for his CODE STATUS. At this particular time lacks adequate cognition. History Interval history: Patient seen and examined, no acute distress. No clinical change Hospitalist Physical - Physical exam Narrative exam: General appearance: Present: no acute distress, well-nourished - EENT Eyes: PERRL, EOM intact ENT: hearing intact, clear oral mucosa Ears: bilateral: normal - Neck Neck: supple, normal ROM - Respiratory Respiratory effort: normal Respiratory: bilateral: CTA - Breasts Breasts: normal - Cardiovascular Rhythm: regular Heart Sounds: Present: S1 & S2. Absent: gallop, rub Extremities: pulses intact, No edema, Full ROM Extremity abnormal: other (Patient Left toes with ischemic changes. noted toe amputation right foot. Decreased pulses. Ischemic digits. No gangrene.) - Gastrointestinal General gastrointestinal: Present: soft, non-tender, non-distended, normal bowel sounds - Genitourinary Male genitourinary: normal - Integumentary Integumentary: clear, warm, dry - Musculoskeletal Musculoskeletal: 1, strength equal bilaterally - Neurologic Neurologic: moves all extremities - Psychiatric Psychiatric: other (Poor cognition cooperative can be combative a conversation. Poor judgment ) - Constitutional Vitals: Temp Pulse Resp BP Pulse Ox 97.9 F 98 H 18 89/57 98 12/30/19 11:47 12/30/19 11:47 12/30/19 11:47 12/30/19 11:47 12/30/19 11:47 General appearance: Present: no acute distress HEART Score - HEART Score Troponin: Troponin T 0.283 ng/mL (0.00-0.029) H* 12/23/19 20:18 Results - Labs CBC & Chem 7: 12/27/19 06:52 12/30/19 05:56 Labs: Laboratory Last Values WBC 14.0 K/mm3 (4.5-11.0) H 12/27/19 06:52 RBC 2.43 M/mm3 (3.65-5.03) L 12/27/19 06:52 Hgb 7.3 gm/dl (11.8-15.2) L 12/27/19 06:52 Hct 21.4 % (35.5-45.6) L 12/27/19 06:52 MCV 88 fl (84-94) 12/27/19 06:52 MCH 30 pg (28-32) 12/27/19 06:52 MCHC 34 % (32-34) 12/27/19 06:52 RDW 18.8 % (13.2-15.2) H 12/27/19 06:52 Plt Count 161 K/mm3 (140-440) 12/27/19 06:52 Lymph % (Auto) 10.8 % (13.4-35.0) L 12/27/19 06:52 Henry % (Auto) 8.8 % (0.0-7.3) H 12/27/19 06:52 Eos % (Auto) 0.1 % (0.0-4.3) 12/27/19 06:52 Baso % (Auto) 0.3 % (0.0-1.8) 12/27/19 06:52 Lymph # (Auto) 1.5 K/mm3 (1.2-5.4) 12/27/19 06:52 Henry # (Auto) 1.2 K/mm3 (0.0-0.8) H 12/27/19 06:52 Eos # (Auto) 0.0 K/mm3 (0.0-0.4) 12/27/19 06:52 Baso # (Auto) 0.0 K/mm3 (0.0-0.1) 12/27/19 06:52 Add Manual Diff Complete 12/24/19 04:40 Total Counted 100 12/24/19 04:40 Seg Neutrophils % 80.0 % (40.0-70.0) H 12/27/19 06:52 Seg Neuts % (Manual) 98.0 % (40.0-70.0) H 12/24/19 04:40 Band Neutrophils % 1.0 % 12/24/19 04:40 Lymphocytes % (Manual) 1.0 % (13.4-35.0) L 12/24/19 04:40 Reactive Lymphs % (Man) 0 % 12/24/19 04:40 Monocytes % (Manual) 0 % (0.0-7.3) 12/24/19 04:40 Eosinophils % (Manual) 0 % (0.0-4.3) 12/24/19 04:40 Basophils % (Manual) 0 % (0.0-1.8) 12/24/19 04:40 Metamyelocytes % 0 % 12/24/19 04:40 Myelocytes % 0 % 12/24/19 04:40 Promyelocytes % 0 % 12/24/19 04:40 Blast Cells % 0 % 12/24/19 04:40 Nucleated RBC % Not Reportable 12/24/19 04:40 Seg Neutrophils # 11.2 K/mm3 (1.8-7.7) H 12/27/19 06:52 Seg Neutrophils # Man 13.3 K/mm3 (1.8-7.7) H 12/24/19 04:40 Band Neutrophils # 0.1 K/mm3 12/24/19 04:40 Lymphocytes # (Manual) 0.1 K/mm3 (1.2-5.4) L 12/24/19 04:40 Abs React Lymphs (Man) 0.0 K/mm3 12/24/19 04:40 Monocytes # (Manual) 0.0 K/mm3 (0.0-0.8) 12/24/19 04:40 Eosinophils # (Manual) 0.0 K/mm3 (0.0-0.4) 12/24/19 04:40 Basophils # (Manual) 0.0 K/mm3 (0.0-0.1) 12/24/19 04:40 Metamyelocytes # 0.0 K/mm3 12/24/19 04:40 Myelocytes # 0.0 K/mm3 12/24/19 04:40 Promyelocytes # 0.0 K/mm3 12/24/19 04:40 Blast Cells # 0.0 K/mm3 12/24/19 04:40 WBC Morphology Not Reportable 12/24/19 04:40 Hypersegmented Neuts Not Reportable 12/24/19 04:40 Hyposegmented Neuts Not Reportable 12/24/19 04:40 Hypogranular Neuts Not Reportable 12/24/19 04:40 Smudge Cells Not Reportable 12/24/19 04:40 Toxic Granulation Not Reportable 12/24/19 04:40 Toxic Vacuolation Not Reportable 12/24/19 04:40 Dohle Bodies Not Reportable 12/24/19 04:40 Pelger-Huet Anomaly Not Reportable 12/24/19 04:40 Nahomy Rods Not Reportable 12/24/19 04:40 Platelet Estimate Consistent w auto 12/24/19 04:40 Clumped Platelets Not Reportable 12/24/19 04:40 Plt Clumps, EDTA Not Reportable 12/24/19 04:40 Large Platelets Not Reportable 12/24/19 04:40 Giant Platelets Not Reportable 12/24/19 04:40 Platelet Satelliting Not Reportable 12/24/19 04:40 Plt Morphology Comment Not Reportable 12/24/19 04:40 RBC Morphology Not Reportable 12/24/19 04:40 Dimorphic RBCs Not Reportable 12/24/19 04:40 Polychromasia Not Reportable 12/24/19 04:40 Hypochromasia Not Reportable 12/24/19 04:40 Poikilocytosis Not Reportable 12/24/19 04:40 Anisocytosis 1+ 12/24/19 04:40 Microcytosis Not Reportable 12/24/19 04:40 Macrocytosis Not Reportable 12/24/19 04:40 Spherocytes Not Reportable 12/24/19 04:40 Pappenheimer Bodies Not Reportable 12/24/19 04:40 Sickle Cells Not Reportable 12/24/19 04:40 Target Cells Not Reportable 12/24/19 04:40 Tear Drop Cells Not Reportable 12/24/19 04:40 Ovalocytes Not Reportable 12/24/19 04:40 Helmet Cells Not Reportable 12/24/19 04:40 Moran-Baring Bodies Not Reportable 12/24/19 04:40 [place] Rings Not Reportable 12/24/19 04:40 Martita Cells Not Reportable 12/24/19 04:40 Bite Cells Not Reportable 12/24/19 04:40 Crenated Cell Not Reportable 12/24/19 04:40 Elliptocytes Not Reportable 12/24/19 04:40 Acanthocytes (Spur) Not Reportable 12/24/19 04:40 Rouleaux Not Reportable 12/24/19 04:40 Hemoglobin C Crystals Not Reportable 12/24/19 04:40 Schistocytes Not Reportable 12/24/19 04:40 Malaria parasites Not Reportable 12/24/19 04:40 Danilo Bodies Not Reportable 12/24/19 04:40 Hem Pathologist Commnt No 12/24/19 04:40 PT 14.4 Sec. (12.2-14.9) 12/24/19 04:40 INR 1.11 (0.87-1.13) 12/24/19 04:40 Sodium 138 mmol/L (137-145) 12/30/19 05:56 Potassium 3.6 mmol/L (3.6-5.0) 12/30/19 05:56 Chloride 102.3 mmol/L (98-107) 12/30/19 05:56 Carbon Dioxide 22 mmol/L (22-30) 12/30/19 05:56 Anion Gap 17 mmol/L 12/30/19 05:56 BUN 14 mg/dL (9-20) 12/30/19 05:56 Creatinine 0.8 mg/dL (0.8-1.3) 12/30/19 05:56 Estimated GFR > 60 ml/min 12/30/19 05:56 BUN/Creatinine Ratio 18 % 12/30/19 05:56 Glucose 86 mg/dL (75-100) 12/30/19 05:56 POC Glucose 101 mg/dL (70-105) 12/30/19 12:03 Lactic Acid 3.30 mmol/L (0.7-2.0) H* 12/23/19 23:01 Calcium 7.7 mg/dL (8.4-10.2) L 12/30/19 05:56 Phosphorus 2.70 mg/dL (2.5-4.5) D 12/30/19 05:56 Magnesium 1.40 mg/dL (1.7-2.3) L 12/30/19 05:56 Total Bilirubin 0.20 mg/dL (0.1-1.2) 12/23/19 20:18 AST 28 units/L (5-40) 12/23/19 20:18 ALT 11 units/L (7-56) 12/23/19 20:18 Alkaline Phosphatase 82 units/L (35-129) 12/23/19 20:18 Total Creatine Kinase 382 units/L (55-170) H 12/23/19 20: Troponin T 0.283 ng/mL (0.00-0.029) H* 12/23/19 20: Total Protein 6.2 g/dL (6.3-8.2) L 12/23/19: Albumin 3.5 g/dL (3.9-5) L 12/23/19 20: Albumin/Globulin Ratio 1.3 % 12/23/19 20: Triglycerides 109 mg/dL (2-149) 12/23/19: Cholesterol 138 mg/dL (50-199) 12/23/19: LDL Cholesterol Direct 90 mg/dL (50-130) 12/23/19 20: HDL Cholesterol 38 mg/dL (40-59) L 12/23/19 20: Cholesterol/HDL Ratio 3.63 % 12/23/19: Urine Color Yellow (Yellow) 12/23/19: Urine Turbidity Cloudy (Clear) 12/23/19: Urine pH 7.0 (5.0-7.0) 12/23/19: Ur Specific [place] 1.013 (1.003-1.030) 12/23/19: Urine Protein 30 mg/dl mg/dL (Negative) 12/23/19: Urine Glucose (UA) Neg mg/dL (Negative) 12/23/19 Urine Ketones Neg mg/dL (Negative) 12/23/19: Urine Blood Mod (Negative) 12/23/19: Urine Nitrite Neg (Negative) 12/23/19: Urine Bilirubin Neg (Negative) 12/23/19: Urine Urobilinogen < 2.0 mg/dL (<2.0) 12/23/19: Ur Leukocyte Esterase Lg (Negative) 12/23/19: Urine WBC (Auto) 74.0 /HPF (0.0-6.0) H 12/23/19: Urine RBC (Auto) 9.0 /HPF (0.0-6.0) 10/22/20 21:27 U Epithel Cells (Auto) 1.0 /HPF (0-13.0) 12/23/19 21:27 Urine Bacteria (Auto) 1+ /HPF (Negative) 12/23/19 21:27 Urine Mucus Few /HPF 12/23/19 21:27 Urine Creatinine 32.6 mg/dL (0.1-20.0) H 12/24/19 13:10 Urine Sodium 42 mmol/L 12/24/19 13:10 Nasal Screen MRSA (PCR) Negative (Negative) 12/24/19 Unknown Coronavirus (PCR) Negative (Negative) 12/30/19 09:40 Blood Type O POSITIVE 12/24/19 06:05 Antibody Screen Negative 12/24/19 06:05 Crossmatch See Detail 12/24/19 06:05 Matthews/IV: Voiding Method Indwelling Catheter IV Catheter Type [Left Femoral Peripheral IV ] IV Catheter Type [Right Peripheral IV Forearm] Active Medications - Current Medications Current Medications: Generic Name Dose Route Start Last Admin Trade Name Freq PRN Reason Stop Dose Admin Acetaminophen 650 mg 12/23/19 23:37 Tylenol PO Q4H PRN Pain MILD(1-3)/Fever >100.5/LUNSFORD Hydrocodone Bitart/Acetaminophen 1 each 12/24/19 16:54 12/29/19 13:24 [place] 5/325 PO 1 each Q12HR PRN Administration Pain, Moderate (4-6) Aspirin 81 mg 12/24/19 18:00 12/29/19 10:37 Baby Aspirin PO 81 mg QDAY DARLINE Administration Atorvastatin Calcium 40 mg 12/24/19 22:00 12/29/19 21:41 Lipitor PO 40 mg QHS DARLINE Administration Docusate Sodium 100 mg 12/24/19 22:00 12/29/19 21:40 Colace PO 100 mg BID DARLINE Administration Ferrous Gluconate 324 mg 12/24/19 22:00 12/29/19 21:40 Fergon PO 324 mg BID DARLINE Administration Magnesium Sulfate 1 gm/ Sodium 52 mls @ 52 mls/hr 12/30/19 14:45 Chloride IV 12/30/19 15:44 ONCE ONE Insulin Glargine 10 units 12/24/19 22:00 12/29/19 22:00 Lantus SUB-Q Not Given QHS DARLINE Magnesium Hydroxide 30 ml 12/23/19 23:37 12/25/19 18:15 Milk Of Magnesia PO 30 ml Q4H PRN Administration Constipation Midodrine 5 mg 12/26/19 14:00 12/29/19 21:41 Proamatine PO 5 mg BID DARLINE Administration Multivitamins 1 each 12/25/19 10:00 12/29/19 10:37 Theragran Tab PO 1 each DAILY DARLINE Administration Ondansetron HCl 4 mg 12/23/19 23:37 Zofran IV Q8H PRN Nausea And Vomiting Quetiapine Fumarate 25 mg 12/24/19 22:00 12/29/19 21:41 Seroquel PO 25 mg BID DARLINE Administration Sodium Chloride 10 ml 12/24/19 10:00 12/29/19 21:41 Sodium Chloride Flush Syringe 10 Ml IV 10 ml BID DARLINE Administration Sodium Chloride 10 ml 12/23/19 23:37 Sodium Chloride Flush Syringe 10 Ml IV PRN PRN LINE FLUSH Tamsulosin HCl 0.4 mg 12/24/19 18:00 12/29/19 10:37 Flomax PO 0.4 mg QDAY DARLINE Administration Valacyclovir HCl 1,000 mg 12/25/19 14:00 12/29/19 21:40 Valtrex PO 01/01/20 08:01 1,000 mg TID DARLINE Administration Nutrition/Malnutrition Assess - Dietary Evaluation Nutrition/Malnutrition Findings: Nutrition Notes Start: 12/24/19 12:00 Freq: Status: Active Protocol: Document 12/29/19 10:47 AB (Rec: 12/29/19 13:18 AB [id number]) Co-Sign 12/29/19 10:47 MK Nutrition Notes Initial or Follow up Reassessment Current Diagnosis Acute Kidney Injury,Decubitus( Pressure Ulcer),Sepsis, Hypertension,Heart Failure Other Pertinent Diagnosis AMS, hypotension, SOB, UTI Current Diet Cardiac, mechanical soft Labs/Tests K 3.2 BUN 29 Phos 1.90 Mg 1.50 Pertinent Medications MVI Height 6 ft Weight 69.4 kg [place] Body Weight (kg) 80.90 BMI 20.7 Weight change and time frame Wt change noted d/t unable to zero bed Weight Status Appropriate Subjective/Other Information F/U for intakes and NFPE. Pt not responsive to questions being asked d/t AMS. Pt non- compliant to NFPE, so not able to complete. Associate Professor Of Medicine noticed multiple unopened ONS on table , pt shook head that he did not like to drink them. Pt was reweighed using bed scale, 69 .4 kg. Pt not eating per RN. Percent of energy/protein needs met: 0%/0% Burn Absent Trauma Absent GI Symptoms Diarrhea Difficulty In Chewing Current % PO Poor (25-49%) Minimum of two criteria Yes Body Fat Depletion Mild depletion (non-severe) Muscle Mass Mild Depletion (non-severe) #3 Nutrition Diagnosis Malnutrition Diagnosis Progress(for reassessment Continues documentation) #2 Nutrition Diagnosis Increased nutrient needs ( specify in comment below) Comments: protein Diagnosis Progress(for reassessment Continues documentation) #1 Nutrition Diagnosis Inadequate oral intake As Evidenced by Signs and Symptoms Pt not eating Diagnosis Progress(for reassessment Worsened documentation) Is patient on ventilator? No Is Patient Ambulatory and/or Out of Bed No REE-([place]-St. or-confined to bed) 1837.620 Kcal/Kg value to use for calculation 30 Approximate Energy Requirements Using 2082 kcal/Kg Calculation Used for Recommendations Kcal/kg Additional Notes Protein: 75-90 g/day (1.25-1.5 g/kg) Fluid: 6523-2244 ml/day Nutrition Intervention Change Diet Order: Continue Add Supplement/Snack (indicate name/kcal D/C /protein ) Goal #1 Meet 75% of total energy and protein needs Goal #2 Wound healing Goal #3 Weight maintenance Anticipated Discharge Needs: Cardiac, mechanical soft Follow-Up By: 12/31/19 Additional Comments F/U for intakes
[2019-12-30] MEDS ORDERED: MAGNESIUM SULFATE 1 GM in SODIUM CHLORIDE 0.9% 50 ML IV ONE (16:00)
== END 2019-12-30 18:00 | DRG 871 ==
LOC: ED 18:40 → CC1 22:55 → 3A 12-26 16:10
PROVIDERS: ADMIT Internal Medicine Geriatric Medicine; ATTEND Internal Medicine
PROC: 06HY33Z Insertion of Infusion Device into Lower Vein, Percutaneous Approach (ICD-10-PCS; principal; 2019-12-23)
PROC: B54CZZA Ultrasonography of Left Lower Extremity Veins, Guidance (ICD-10-PCS; 2019-12-23)
PROC: 30233N1 Transfusion of Nonautologous Red Blood Cells into Peripheral Vein, Percutaneous Approach (ICD-10-PCS; 2019-12-24)
PROC: 3E0234Z Introduction of Serum, Toxoid and Vaccine into Muscle, Percutaneous Approach (ICD-10-PCS; 2019-12-24)
DX: A41.9 Sepsis, unspecified organism (principal); R65.21 Severe sepsis with septic shock; N17.0 Acute kidney failure with tubular necrosis; G93.41 Metabolic encephalopathy; I70.268 Atherosclerosis of native arteries of extremities with gangrene, other extremity; E87.1 Hypo-osmolality and hyponatremia; N30.01 Acute cystitis with hematuria; F03.91 Unspecified dementia, unspecified severity, with behavioral disturbance; I95.9 Hypotension, unspecified; I50.9 Heart failure, unspecified; D64.9 Anemia, unspecified; A60.02 Herpesviral infection of other male genital organs; I11.0 Hypertensive heart disease with heart failure; Z20.828 Contact with and (suspected) exposure to other viral communicable diseases; Z79.899 Other long term (current) drug therapy; Z79.82 Long term (current) use of aspirin; Z79.4 Long term (current) use of insulin; Z23 Encounter for immunization
CPT/HCPCS: 36415; 70450; 71045; 76770; 80048; 80053; 80061; 81001; 82140; 82550; 82570; 82962; 83735; 84100; 84300; 84484; 85007; 85025; 85027; 85610; 86850; 86900; 86901; 86920; 87040; 87086; 87641; 90471; 90686; 90732; 93005; 94760; 96361; 96365; 96372; G0378; A9270-GY; G0008; G0009; J0692; J1815; J2405; J3475; J3486; J7030; J7040; P9016; U0003